=== PATIENT | male | born 1935 | race Caucasian/White ===

== ENCOUNTER 2019-03-26 08:09 | Day surgery (SDC) | payer MEDICARE ==
[~2019-03-26 08:09] MED LIST: BRIMONIDINE 0.2% OPHTH DROPS 5 ML ONE; BSS/LIDOCAINE/EPINEPHRINE 1 ML SYRINGE ONE; CYCLOPENTOLATE 1% OPHTH DROPS 2 ML ONE; KETOROLAC 0.45% OPHTH DROPS ONE; PHENYLEPHRINE 2.5% OPHTH 2 ML DROPS ONE; PROPARACAINE 0.5% OPHTH DROPS 15 ML ONE; TIMOLOL 0.5% OPHTH DROPS ONE; TRIAMCIN/MOXIFLOX OPHTHALMIC 0.6 ML VIAL IO ONE; VANCOMYCIN OPHTHALMI 8MG/0.8ML 8 MG/0.8 ML SYRINGE IO ONE
[2019-03-26] MEDS ORDERED: LACTATED RINGERS 500 ML IV ONE (08:22)
[2019-03-26] MEDS ORDERED: PHENYLEPHRINE 2.5% OPHTH 2 ML DROPS LEFTEYE ONE (08:35)
[2019-03-26] MEDS ORDERED: KETOROLAC 0.45% OPHTH DROPS LEFTEYE ONE (08:35)
[2019-03-26] MEDS ORDERED: CYCLOPENTOLATE 1% OPHTH DROPS 2 ML LEFTEYE ONE (08:35)
[2019-03-26] MEDS ORDERED: PROPARACAINE 0.5% OPHTH DROPS 15 ML LEFTEYE ONE ×2 (08:35→09:40)
--- NOTE | 2019-03-26 08:52 | ANESTHESIA ---
Pre-Anesthesia VS, & Labs - Diagnosis left senile cataract - Procedure left cataract extraction with intraocular lens implant Vital Signs: Temp Pulse Resp BP Pulse Ox 36.7 C 80 18 277/91 H 97 03/26/19 08:27 03/26/19 08:27 03/26/19 08:27 03/26/19 08:27 03/26/19 08:27 Height 5 ft 10 in Weight (kg) 89 kg Body Mass Index 30.8 - NPO >8 hours Home Medications and Allergies Aspirin 81 mg PO DAILY 02/17/15 Cholecalciferol (Vitamin D3) [Vitamin D3] 2,000 unit PO DAILY 02/17/15 Methylcellulose [Fiber Laxative] 500 mg PO DAILY 02/17/15 Multivitamin [Multivitamins] 1 each PO DAILY 02/17/15 Allergies/Adverse Reactions: Allergies Allergy/AdvReac Type Severity Reaction Status Date / Time No Known Drug Allergies Allergy Verified 01/25/15 15:12 Anes History & Medical History - Anesthetic History Anesthesia Complications: reports: No previous complications - Medical History Cardiovascular: reports: Atrial flutter, Other Pulmonary: reports: Other Gastrointestinal: reports: None Urinary: reports: None Musculoskeletal: reports: Osteoarthritis, Chronic back pain, Other Endocrine/Autoimmune: reports: None Skin: reports: Herpes zoster Smoking Status: Never smoker - Surgical History General: Colonoscopy Eyes Ears Nose Throat (EENT): Cataracts, Other Orthopedic: Knee replacement Exam General: Alert Dental: WNL Mouth Opening: Greater than 4 Fingerbreadths Mallampati classification: II Thyromental Distance: greater than 6 cm Respiratory: Lungs clear Cardiovascular: Regular rate Mental/Cognitive Status: Alert/Oriented X3 Plan Anesthesia Type: MAC Regional Block: Per Surgeon's request for Post Op pain control Consent for Procedure(s) Verified and Reviewed: Yes Code Status: Attempt Resuscitation ASA classification: 2-Mild systemic disease Is this case an emergency?: No
[2019-03-26] MEDS ORDERED: MIDAZOLAM 2 MG/2 ML VIAL IVP ONE (09:27)
[2019-03-26] MEDS ORDERED: fentaNYL 100 MCG/2 ML VIAL IVP ONE (09:27)
[2019-03-26] MEDS ORDERED: EPINEPHrine 1 MG/ML AMP IVP ONE (09:39)
[2019-03-26] MEDS ORDERED: BRIMONIDINE 0.2% OPHTH DROPS 5 ML OPTH ONE (09:39)
[2019-03-26] MEDS ORDERED: BSS/LIDOCAINE/EPINEPHRINE 1 ML SYRINGE IO ONE (09:40)
[2019-03-26] MEDS ORDERED: TIMOLOL 0.5% OPHTH DROPS OPTH ONE (09:40)
[2019-03-26] MEDS ORDERED: CHONDR SULF/HYALURONATE SYRINGE IO ONE (09:40)
[2019-03-26] MEDS ORDERED: TRIAMCIN/MOXIFLOX OPHTHALMIC 0.6 ML VIAL IO ONE (09:41)
[2019-03-26] MEDS ORDERED: VANCOMYCIN OPHTHALMI 8MG/0.8ML 8 MG/0.8 ML SYRINGE IO ONE (09:41)
[2019-03-26 10:18] VITALS: BP 145/76
--- NOTE | 2019-03-26 10:31 | OPERATIVE REPORT ---
DATE OF SERVICE: 03/26/2019 Physician: Tobi Jimenez MD PREOPERATIVE DIAGNOSIS: Visually significant cataract, left eye. Cataract surgery was performed on the right eye in 2013, elsewhere. POSTOPERATIVE DIAGNOSIS: Visually significant cataract, left eye. Cataract surgery was performed on the right eye in 2013, elsewhere. PROCEDURE: Phacoemulsification with posterior chamber intraocular lens implant, left eye. SURGEON: Tobi Jimenez MD ANESTHESIA: Monitored anesthesia care. COMPLICATIONS: None. OPERATIVE INDICATIONS: This is an 83-year-old man with progressive vision loss in the left eye due t o 2+ nuclear sclerotic and 2-3+ cortical cataract. Best corrected visual acuity was 20/40 with glare to 20/400 in the left eye. Indications for surgery are overall decrease in vision, difficulty seein g words on a computer screen, difficulty reading, difficulty seeing words, closed captions or game sc ores on TV, difficulty seeing street signs, difficulty driving at night because of headlights from ot her vehicles, and difficulty with glare or bright lights in any situation. He was consented at [facility] concerning risks and benefits of cataract surgery, after which he expressed a desire to proceed wit surgery. OPERATIVE PROCEDURE: Patient was taken to OR #3 and placed under monitored anesthesia care. A surgi cory timeout was conducted confirming the correct patient, correct procedure, and correct surgical sit e. He was given topical anesthesia and then prepped and draped in the usual sterile fashion. The ey e was entered at the 6 and 3 o'clock positions. Intracameral Shugarcaine was injected into the anter ior chamber, followed by Viscoat. A continuous-tear curvilinear capsulorrhexis was performed. The n ucleus was hydrodissected and phacoemulsified. The cortex was evacuated using automated infusion and aspiration. Provisc was injected in the capsular bag, and a 20.5 diopter intraocular lens inserted in the bag. Approximately 0.8 mL of a mixture of triamcinolone, moxifloxacin, and vancomycin was inj ected subconjunctivally in the superior quadrant for infection and inflammation prophylaxis. I and A was used to evacuate the viscoelastic materials. The eye was inflated to physiologic pressure using balanced salt solution and found to be watertight. Patient was taken from the operating room in o d condition where he was given postoperative instructions. TD: 03/26/2019 10:00
== END 2019-03-26 08:10 | disposition home or self-care (01) ==
LOC: SDS 08:09
PROVIDERS: ATTEND Ophthalmology
PROC: 08RK3JZ Replacement of Left Lens with Synthetic Substitute, Percutaneous Approach (ICD-10-PCS; principal; 2019-03-26 09:30)
DX: H25.812 Combined forms of age-related cataract, left eye (principal); Z79.82 Long term (current) use of aspirin; Z86.19 Personal history of other infectious and parasitic diseases
CPT/HCPCS: 66984; A9270; J3490; V2632

== ENCOUNTER 2020-09-15 15:45 | Outpatient (CLI) | payer MEDICARE | END 2020-09-15 15:46 | disposition home or self-care (01) | LOC: PC 15:45 | PROVIDERS: ATTEND Nurse Practitioner Adult Health | DX: Z53.9 Procedure and treatment not carried out, unspecified reason (principal) ==

== ENCOUNTER 2020-11-18 12:57 | Emergency (ER) | payer MEDICARE ==
[2020-11-18 13:46] LABS: BASOPHILS % (AUTO) 0.4 %; EOSINOPHILS # (AUTO) 0.1 10^3/uL (0.0-0.7); EOSINOPHILS % (AUTO) 0.7 %; HGB - HEMOGLOBIN 14.5 g/dL (14.0-18.0); LYMPHOCYTES # (AUTO) 1.2 10^3/uL (1.5-3.5); LYMPHOCYTES % (AUTO) 14.4 %; MEAN CORPUSCULAR HEMOGLOBIN 32.4 pg (27.0-31.0); MEAN CORPUSCULAR HGB CONC 33.1 g/dL (32.0-36.0); MEAN PLATELET VOLUME 11.3 fL (7.4-11.4); MONOCYTES # (AUTO) 0.4 10^3/uL (0.0-1.0); NEUTROPHILS # (AUTO) 6.8 10^3/uL (1.5-6.6); NEUTROPHILS % (AUTO) 79.3 %; PLT - PLATELET COUNT 176 10^3/uL (130-450); RED BLOOD COUNT 4.47 10^6/uL (4.70-6.10); RED CELL DISTRIBUTION WIDTH 12.8 % (12.0-15.0); WHITE BLOOD COUNT 8.6 x10^3/uL (4.8-10.8)
[2020-11-18 14:02] LABS: ALBUMIN 4.4 g/dL (3.2-5.5); ALBUMIN/GLOBULIN RATIO 1.6 (1.0-2.2); BILIRUBIN,TOTAL 0.5 mg/dL (0.2-1.0); CALCIUM 9.4 mg/dL (8.5-10.3); CREATININE 0.8 mg/dL (0.6-1.2); TOTAL PROTEIN 7.1 g/dL (6.7-8.2)
--- NOTE | 2020-11-18 14:08 | XRAY Report ---
PROCEDURE: Chest 1 View X-Ray INDICATIONS: Chest pain TECHNIQUE: One view of the chest was acquired. COMPARISON: Chest radiographs 01/25/2015 FINDINGS: Surgical changes and devices: None. Lungs and pleura: No pleural effusions or pneumothorax. Lungs are clear. Mediastinum: Mediastinal contours appear normal. Heart size is normal. Mild atherosclerotic calcif ications are seen in the aorta. Bones and chest wall: No suspicious bony lesions. Overlying soft tissues appear unremarkable. IMPRESSION: No acute cardiopulmonary abnormality. Reviewed by: Javed Lloyd MD on 11/18/2020 2:06 PM [facility] Approved by: Javed Lloyd MD on 11/18/2020 2:06 PM [facility] Station ID: [id number]
--- NOTE | 2020-11-18 14:18 | ED Physician Documentation ---
History of Present Illness - Stated complaint Stated Complaint: WEAKNESS/DIZZY - Chief complaint Chief Complaint: Neuro - History obtained from History obtained from: Patient, Family (spoke with daughterEmelyn, by phone) - History of Present Illness Timing: How many days ago (3) Pain level max: 0 Pain level now: 0 - Additonal information Additional information: 85 year old male states his jaw was shaking this morning. Same thing occured yesterday, but lasted longer today. States lasted for a few minutes. Nothing made it better or worse. No other symptoms. States feels normal now. No medications at home. Does not smoke or drink. Review of Systems Ten Systems: 10 systems reviewed and negative Constitutional: denies: Fever, Chills Ears: denies: Ear pain Nose: denies: Rhinorrhea / runny nose, Congestion Cardiac: denies: Palpitations Respiratory: denies: Dyspnea, Cough GI: denies: Abdominal Pain, Vomiting, Diarrhea Skin: denies: Rash Musculoskeletal: denies: Neck pain, Back pain Neurologic: denies: Headache PD PAST MEDICAL HISTORY - Past Medical History Cardiovascular: Atrial flutter, Other Respiratory: Other Endocrine/Autoimmune: None GI: None : None Musculoskeletal: Osteoarthritis, Chronic back pain, Other Derm: Herpes zoster - Past Surgical History Past Surgical History: Yes General: Colonoscopy Ortho: Knee replacement HEENT: Cataracts, Other - Present Medications Home Medications: Ambulatory Orders Medication Instructions Recorded Confirmed No Known Home Medications 11/18/20 11/18/20 - Allergies Allergies/Adverse Reactions: Allergies Allergy/AdvReac Type Severity Reaction Status Date / Time No Known Drug Allergies Allergy Verified 11/18/20 13:00 - Social History Does the pt smoke?: No Smoking Status: Never smoker Does the pt drink ETOH?: No Does the pt have substance abuse?: No - Immunizations Immunizations are current?: Yes PD ED PE NORMAL - Vitals Vital signs reviewed: Yes - General General: Alert and oriented X 3, No acute distress - HEENT HEENT: Atraumatic, PERRL, Moist mucous membranes - Neck Neck: Supple, no meningeal sign - Cardiac Cardiac: RRR - Respiratory Respiratory: No respiratory distress, Clear bilaterally - Abdomen Abdomen: Soft, Non tender, Non distended - Derm Derm: Warm and dry - Extremities Extremities: No edema, No calf tenderness / cord - Neuro Neuro: Alert and oriented X 3, jack[place] 2-12 intact, No motor deficit, No sensory deficit, Normal speech Eye Opening: Spontaneous Motor: Obeys Commands Verbal: Oriented GCS Score: 15 - Psych Psych: Normal mood, Normal affect Results - Vitals Vitals: Vital Signs - 24 hr 11/18/20 11/18/20 11/18/20 13:01 15:53 16:21 Temperature 37.1 C 37.1 C 36.7 C Heart Rate 96 73 87 Respiratory 18 16 20 Rate Blood Pressure 181/78 H 150/73 H 173/100 H O2 Saturation 98 98 98 Oxygen O2 Source Room air - EKG (time done) 1350 Rate: Rate (enter#) (77) Rhythm: NSR [place]: Normal Intervals: Normal ND QRS: Normal Ischemia: Normal ST segments - Labs Labs: Laboratory Tests 11/18/20 11/18/20 11/18/20 13:09 13:34 13:34 WBC 8.6 RBC 4.47 L Hgb 14.5 Hct 43.8 MCV 98.0 H MCH 32.4 H MCHC 33.1 RDW 12.8 Plt Count 176 MPV 11.3 Neut # (Auto) 6.8 H Lymph # (Auto) 1.2 L [place] # (Auto) 0.4 Eos # (Auto) 0.1 Baso # (Auto) 0.0 Absolute Nucleated RBC 0.00 Nucleated RBC % 0.0 Sodium 137 Potassium 4.8 Chloride 101 Carbon Dioxide 28 Anion Gap 8.0 BUN 19 Creatinine 0.8 Estimated GFR (MDRD) 92 Glucose 113 H Calcium 9.4 Total Bilirubin 0.5 AST 30 ALT 25 Alkaline Phosphatase 54 Troponin I High Sens Total Protein 7.1 Albumin 4.4 Globulin 2.7 Albumin/Globulin Ratio 1.6 Lipase 30 Urine Color YELLOW Urine Clarity CLEAR Urine pH 7.0 Ur Specific [place] 1.020 Urine Protein NEGATIVE Urine Glucose (UA) NEGATIVE Urine Ketones NEGATIVE Urine Occult Blood NEGATIVE Urine Nitrite NEGATIVE Urine Bilirubin NEGATIVE Urine Urobilinogen 0.2 (NORMAL) Ur Leukocyte Esterase NEGATIVE Ur Microscopic Review NOT INDICATED Urine Culture Comments NOT INDICATED 11/18/20 13:34 WBC RBC Hgb Hct MCV MCH MCHC RDW Plt Count MPV Neut # (Auto) Lymph # (Auto) [place] # (Auto) Eos # (Auto) Baso # (Auto) Absolute Nucleated RBC Nucleated RBC % Sodium Potassium Chloride Carbon Dioxide Anion Gap BUN Creatinine Estimated GFR (MDRD) Glucose Calcium Total Bilirubin AST ALT Alkaline Phosphatase Troponin I High Sens 11.5 Total Protein Albumin Globulin Albumin/Globulin Ratio Lipase Urine Color Urine Clarity Urine pH Ur Specific [place] Urine Protein Urine Glucose (UA) Urine Ketones Urine Occult Blood Urine Nitrite Urine Bilirubin Urine Urobilinogen Ur Leukocyte Esterase Ur Microscopic Review Urine Culture Comments - Rads (name of study) head CT Radiology: Prelim report reviewed, EMP read contemporaneously, See rad report (microvascular disease, no acute findings.) PD MEDICAL DECISION MAKING - ED course Complexity details: considered differential, d/w patient ED course: 85-year-old male presents to the emergency department for what sounds like tremulousness that lasted about 15 minutes yesterday and about 30 minutes today. Asymptomatic in the emergency department. Ambulating up and down the emergency department hallway without any difficulty or assistive devices. Patient is well-appearing, nontoxic. Afebrile. No acute findings on laboratory testing or CT scan. We will have him follow-up with your doctor in [place] for further care. Patient counseled regarding signs and symptoms for which I believe and urgent re-evaluation would be necessary. Patient with good understanding of and agreement to plan and is comfortable going home at this time This document was made in part using voice recognition software. While efforts are made to proofread this document, sound alike and grammatical errors may occur. Departure - Departure Disposition: 01 Home, Self Care Clinical Impression: Tremor Condition: Good Instructions: Essential Tremor ET Follow-Up: [place] [facility] [Provider Group] [facility] [Provider Group] [facility] [Provider Group] Comments: Your testing is normal today. Return if you worsen. Follow up with a doctor in [place] for further care. I spoke with your daughter todayEmelyn. Discharge Date/Time: 11/18/20 16:27
[2020-11-18 15:18] LABS: BILIRUBIN,URINE NEGATIVE (NEGATIVE); GLUCOSE, URINE (UA) NEGATIVE (NEGATIVE); KETONES,URINE (UA) NEGATIVE (NEGATIVE); LEUKOCYTE ESTERASE, URINE NEGATIVE (NEGATIVE); NITRITE,URINE NEGATIVE (NEGATIVE); OCCULT BLOOD,URINE NEGATIVE (NEGATIVE); PROTEIN,URINE NEGATIVE (NEGATIVE); UROBILINOGEN,URINE 0.2 (NORMAL) E.U./dL (NORMAL)
[2020-11-18 15:19] LABS: CLARITY,URINE CLEAR (CLEAR)
--- NOTE | 2020-11-18 15:41 | CT Report ---
PROCEDURE: HEAD WO INDICATIONS: weakness TECHNIQUE: Noncontrast 4.5 mm thick angled axial sections acquired from the foramen magnum to the vertex. For r adiation dose reduction, the following was used: automated exposure control, adjustment of mA and/or kV according to patient size. COMPARISON: None. FINDINGS: Image quality: Excellent. CSF spaces: Basal cisterns are patent. No extra-axial fluid collections. Ventricles are normal in size and shape. Brain: No acute intracranial hemorrhage, mass effect, or midline shift. Scattered hypodensities are s een in the subcortical and periventricular white matter, nonspecific but most commonly encountered in the setting of chronic microvascular ischemic changes. There is mild diffuse cerebral and cerebellar volume loss. Intracranial vascular calcifications are noted. Skull and face: Calvarium and visualized facial bones are intact, without suspicious lesions. Sinuses: Visualized sinuses and mastoids are clear. IMPRESSION: No acute intracranial abnormality. 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 Reviewed by: Javed Lloyd MD on 11/18/2020 3:40 PM [facility] Approved by: Javed Lloyd MD on 11/18/2020 3:40 PM PST Station ID: [id number]
--- NOTE | 2020-11-18 16:11 | ED Physician Documentation ---
History of Present Illness - Stated complaint Stated Complaint: WEAKNESS/DIZZY - Chief complaint Chief Complaint: Neuro - History obtained from History obtained from: Patient - History of Present Illness Timing: Yesterday Pain level max: 0 Pain level now: 0 - Additonal information Additional information: 85 year old male with shaking yesterday morning and this morning. Lasted about 15 minutes yesterday and about 30 minutes today. PD PAST MEDICAL HISTORY - Past Medical History Cardiovascular: Atrial flutter, Other Respiratory: Other Endocrine/Autoimmune: None GI: None : None Musculoskeletal: Osteoarthritis, Chronic back pain, Other Derm: Herpes zoster - Past Surgical History Past Surgical History: Yes General: Colonoscopy Ortho: Knee replacement HEENT: Cataracts, Other - Present Medications Home Medications: Ambulatory Orders Medication Instructions Recorded Confirmed No Known Home Medications 11/18/20 11/18/20 - Allergies Allergies/Adverse Reactions: Allergies Allergy/AdvReac Type Severity Reaction Status Date / Time No Known Drug Allergies Allergy Verified 11/18/20 13:00 - Social History Does the pt smoke?: No Smoking Status: Never smoker Does the pt drink ETOH?: No Does the pt have substance abuse?: No - Immunizations Immunizations are current?: Yes Results - Vitals Vitals: Vital Signs - 24 hr 11/18/20 11/18/20 13:01 15:53 Temperature 37.1 C 37.1 C Heart Rate 96 73 Respiratory 18 16 Rate Blood Pressure 181/78 H 150/73 H O2 Saturation 98 98 Oxygen O2 Source Room air - Labs Labs: Laboratory Tests 11/18/20 11/18/20 11/18/20 13:09 13:34 13:34 WBC 8.6 RBC 4.47 L Hgb 14.5 Hct 43.8 MCV 98.0 H MCH 32.4 H MCHC 33.1 RDW 12.8 Plt Count 176 MPV 11.3 Neut # (Auto) 6.8 H Lymph # (Auto) 1.2 L [place] # (Auto) 0.4 Eos # (Auto) 0.1 Baso # (Auto) 0.0 Absolute Nucleated RBC 0.00 Nucleated RBC % 0.0 Sodium 137 Potassium 4.8 Chloride 101 Carbon Dioxide 28 Anion Gap 8.0 BUN 19 Creatinine 0.8 Estimated GFR (MDRD) 92 Glucose 113 H Calcium 9.4 Total Bilirubin 0.5 AST 30 ALT 25 Alkaline Phosphatase 54 Troponin I High Sens Total Protein 7.1 Albumin 4.4 Globulin 2.7 Albumin/Globulin Ratio 1.6 Lipase 30 Urine Color YELLOW Urine Clarity CLEAR Urine pH 7.0 Ur Specific [place] 1.020 Urine Protein NEGATIVE Urine Glucose (UA) NEGATIVE Urine Ketones NEGATIVE Urine Occult Blood NEGATIVE Urine Nitrite NEGATIVE Urine Bilirubin NEGATIVE Urine Urobilinogen 0.2 (NORMAL) Ur Leukocyte Esterase NEGATIVE Ur Microscopic Review NOT INDICATED Urine Culture Comments NOT INDICATED 11/18/20 13:34 WBC RBC Hgb Hct MCV MCH MCHC RDW Plt Count MPV Neut # (Auto) Lymph # (Auto) [place] # (Auto) Eos # (Auto) Baso # (Auto) Absolute Nucleated RBC Nucleated RBC % Sodium Potassium Chloride Carbon Dioxide Anion Gap BUN Creatinine Estimated GFR (MDRD) Glucose Calcium Total Bilirubin AST ALT Alkaline Phosphatase Troponin I High Sens 11.5 Total Protein Albumin Globulin Albumin/Globulin Ratio Lipase Urine Color Urine Clarity Urine pH Ur Specific [place] Urine Protein Urine Glucose (UA) Urine Ketones Urine Occult Blood Urine Nitrite Urine Bilirubin Urine Urobilinogen Ur Leukocyte Esterase Ur Microscopic Review Urine Culture Comments Departure - Departure Disposition: Home, Self Care Clinical Impression: Tremor Condition: Good Instructions: Essential Tremor ET Follow-Up: [facility] [Provider Group] [facility] [Provider Group] [facility] [Provider Group] Comments: Your testing is normal today. Return if you worsen. Follow up with a doctor in [place] for further care. I spoke with your daughter today, Emelyn.
[2020-11-18 16:22] VITALS: BP 173/100
== END 2020-11-18 16:27 | disposition home or self-care (01) ==
LOC: ED 12:57
DX: R25.1 Tremor, unspecified (principal)
CPT/HCPCS: 36415; 80053; 81001; 81003; 83690; 84484; 85025; 87086; 93005; 99284

== ENCOUNTER 2023-11-24 08:28 | Outpatient (CLI) | payer MEDICARE | END 2023-11-24 23:59 | disposition critical access hospital (66) | LOC: EMS 08:28 | DX: R41.0 Disorientation, unspecified (principal); T68.XXXA Hypothermia, initial encounter; X31.XXXA Exposure to excessive natural cold, initial encounter; S01.81XA Laceration without foreign body of other part of head, initial encounter; S01.91XA Laceration without foreign body of unspecified part of head, initial encounter; S41.112A Laceration without foreign body of left upper arm, initial encounter; W19.XXXA Unspecified fall, initial encounter; Y93.01 Activity, walking, marching and hiking; Y92.414 Local residential or business street as the place of occurrence of the external cause | CPT/HCPCS: A0425; A0427 ==

== ENCOUNTER 2023-11-24 08:50 | Emergency (ER) | payer MEDICARE ==
[2023-11-24] MEDS ORDERED: SODIUM CHLORIDE 0.9% 1,000 ML IV STA (09:10)
--- NOTE | 2023-11-24 09:14 | ED Physician Documentation ---
History of Present Illness - Stated complaint Stated Complaint: AMS - History obtained from History obtained from: Patient, EMS - Additonal information Additional information: The patient is brought to the emergency department by EMS for chief complaint of "found wandering and confused". The patient does not remember leaving his house and does not even remember that he was walking outside. He states that he normally lives alone and this was corroborated by the police who also arrived on scene. Medics report that the police went to the patient's house and Found it to be clean and in order. The patient states he has not been ill with anything recently and has been feeling "fine". He takes an aspirin occasionally in the evening, he states, for aches and pains, but states he does not have any other medical problems or medications. He denies any chest pain or shortness of breath. No cough. He has chronic low back pain which is at baseline. He denies any nausea or vomiting. No abdominal pain. He states that he used to be 300 pounds and believes he is now around 200 after doing the [employer] diet. The patient has no family nearby. He states that he has siblings who live out of state and no children in the area. He does have a female friend who checks in on him from time to time. He does note that his memory has not been very good For some time, though he does not know exactly how long. No other complaints at this time. The patient does not know why he has scratches all over his arms and legs, but thinks it is from trimming trees in his yard yesterday. He denies falling and does not feel as though he is injured his head. No neck pain. PD PAST MEDICAL HISTORY - Past Medical History Cardiovascular: Atrial flutter, Other Respiratory: Other Endocrine/Autoimmune: None GI: None : None Musculoskeletal: Osteoarthritis, Chronic back pain, Other Derm: Herpes zoster - Past Surgical History Past Surgical History: Yes General: Colonoscopy Ortho: Knee replacement HEENT: Cataracts, Other - Present Medications Home Medications: Ambulatory Orders Medication Instructions Recorded Confirmed QUEtiapine [SEROquel] 25 mg PO QPM #30 tablet 11/27/23 - Allergies Allergies/Adverse Reactions: Allergies Allergy/AdvReac Type Severity Reaction Status Date / Time No Known Drug Allergies Allergy Verified 11/24/23 09:23 - Social History Does the pt smoke?: No Smoking Status: Never smoker Does the pt drink ETOH?: No Does the pt have substance abuse?: No - Immunizations Immunizations are current?: Yes PD ED PE NORMAL - Vitals Vital signs reviewed: Yes - General General: No acute distress, Well developed/nourished, Other (Alert answers questions appropriately.) - HEENT HEENT: PERRL, EOMI, Moist mucous membranes, Other (Dried blood on face but no evidence of head or facial trauma.) - Neck Neck: Supple, no meningeal sign, No bony TTP - Cardiac Cardiac: RRR, No murmur, Strong equal pulses - Respiratory Respiratory: No respiratory distress, Clear bilaterally - Abdomen Abdomen: Soft, Non tender, Non distended - Back Back: No spinal TTP - Derm Derm: Normal color, Other (Cool, dry. 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 Relevant findings are: Rate: Rate (enter#) (91) Rhythm: NSR [place]: Normal Intervals: Normal [place] QRS: Normal Ischemia: Non specific changes Compare to prior EKG: Old EKG unavailable Computer interpretation: Agree with computer - Labs Labs: Laboratory Tests 11/24/23 11/24/23 11/24/23 09:27 09:27 09:27 WBC 16.2 H RBC 4.32 L Hgb 13.8 L Hct 42.6 MCV 98.6 H MCH 31.9 H MCHC 32.4 RDW 14.5 Plt Count 185 MPV 10.4 Neut # (Auto) 14.7 H Lymph # (Auto) 0.5 L Baxter # (Auto) 0.9 Eos # (Auto) 0.0 Baso # (Auto) 0.0 Absolute Nucleated RBC 0.00 Nucleated RBC % 0.0 Sodium 144 Potassium 4.2 Chloride 112 H Carbon Dioxide 20 L Anion Gap 12.0 BUN 34 H Creatinine 1.1 Estimated GFR (MDRD) 63 L Glucose 68 L Calcium 8.9 Total Bilirubin 0.5 AST 35 ALT 14 Alkaline Phosphatase 47 Ammonia 39.0 Total Protein 6.6 Albumin 4.2 Globulin 2.4 Albumin/Globulin Ratio 1.8 Lipase < 10 L Urine Color Urine Clarity Urine pH Ur Specific Media Urine Protein Urine Glucose (UA) Urine Ketones Urine Occult Blood Urine Nitrite Urine Bilirubin Urine Urobilinogen Ur Leukocyte Esterase Urine RBC Urine WBC Ur Squamous Epith Cells Urine Bacteria Urine Casts Ur Microscopic Review Urine Culture Comments Nasal Adenovirus (PCR) Nasal B. parapertussis DNA (PCR) Nasal Coronavir 229E PCR Nasal Coronavir HKU1 PCR Nasal Coronavir NL63 PCR Nasal Coronavir OC43 PCR Nasal Enterovir/Rhinovir PCR Nasal Influenza B PCR Nasal Influenza A PCR Nasal Parainfluen 1 PCR Nasal Parainfluen 2 PCR Nasal Parainfluen 3 PCR Nasal Parainfluen 4 PCR Nasal RSV (PCR) Nasal B.pertussis DNA PCR Nasal C.pneumoniae (PCR) Clay Human Metapneumo PCR Nasal M.pneumoniae (PCR) Nasal SARS-CoV-2 (PCR) Urine Opiates Screen Ur Buprenorphine Scrn Ur Oxycodone Screen Urine Methadone Screen Ur Barbiturates Screen Ur Tricyclics Screen Ur Phencyclidine Scrn Ur Amphetamine Screen U Methamphetamines Scrn U Benzodiazepines Scrn Urine Cocaine Screen U Cannabinoids Screen Ur Drug Screen Comment Ethyl Alcohol 11/24/23 11/24/23 11/24/23 09:27 09:28 09:45 WBC RBC Hgb Hct MCV MCH MCHC RDW Plt Count MPV Neut # (Auto) Lymph # (Auto) Baxter # (Auto) Eos # (Auto) Baso # (Auto) Absolute Nucleated RBC Nucleated RBC % Sodium Potassium Chloride Carbon Dioxide Anion Gap BUN Creatinine Estimated GFR (MDRD) Glucose Calcium Total Bilirubin AST ALT Alkaline Phosphatase Ammonia Total Protein Albumin Globulin Albumin/Globulin Ratio Lipase Urine Color DARK YELLOW Urine Clarity CLEAR Urine pH 5.5 Ur Specific Media >=1.030 H Urine Protein 30 H Urine Glucose (UA) NEGATIVE Urine Ketones 15 H Urine Occult Blood SMALL H Urine Nitrite NEGATIVE Urine Bilirubin NEGATIVE Urine Urobilinogen 0.2 (NORMAL) Ur Leukocyte Esterase NEGATIVE Urine RBC 0-5 Urine WBC 0-3 Ur Squamous Epith Cells FEW Squamous Urine Bacteria Few Urine Casts 3-5 Hyaline Casts Ur Microscopic Review INDICATED Urine Culture Comments NOT INDICATED Nasal Adenovirus (PCR) NOT DETECTED Nasal B. parapertussis DNA (PCR) NOT DETECTED Nasal Coronavir 229E PCR NOT DETECTED Nasal Coronavir HKU1 PCR NOT DETECTED Nasal Coronavir NL63 PCR NOT DETECTED Nasal Coronavir OC43 PCR NOT DETECTED Nasal Enterovir/Rhinovir PCR NOT DETECTED Nasal Influenza B PCR NOT DETECTED Nasal Influenza A PCR NOT DETECTED Nasal Parainfluen 1 PCR NOT DETECTED Nasal Parainfluen 2 PCR NOT DETECTED Nasal Parainfluen 3 PCR NOT DETECTED Nasal Parainfluen 4 PCR NOT DETECTED Nasal RSV (PCR) NOT DETECTED Nasal B.pertussis DNA PCR NOT DETECTED Nasal C.pneumoniae (PCR) NOT DETECTED Clay Human Metapneumo PCR NOT DETECTED Nasal M.pneumoniae (PCR) NOT DETECTED Nasal SARS-CoV-2 (PCR) NOT DETECTED Urine Opiates Screen Ur Buprenorphine Scrn Ur Oxycodone Screen Urine Methadone Screen Ur Barbiturates Screen Ur Tricyclics Screen Ur Phencyclidine Scrn Ur Amphetamine Screen U Methamphetamines Scrn U Benzodiazepines Scrn Urine Cocaine Screen U Cannabinoids Screen Ur Drug Screen Comment Ethyl Alcohol < 10.0 11/24/23 09:45 WBC RBC Hgb Hct MCV MCH MCHC RDW Plt Count MPV Neut # (Auto) Lymph # (Auto) Baxter # (Auto) Eos # (Auto) Baso # (Auto) Absolute Nucleated RBC Nucleated RBC % Sodium Potassium Chloride Carbon Dioxide Anion Gap BUN Creatinine Estimated GFR (MDRD) Glucose Calcium Total Bilirubin AST ALT Alkaline Phosphatase Ammonia Total Protein Albumin Globulin Albumin/Globulin Ratio Lipase Urine Color Urine Clarity Urine pH Ur Specific Media Urine Protein Urine Glucose (UA) Urine Ketones Urine Occult Blood Urine Nitrite Urine Bilirubin Urine Urobilinogen Ur Leukocyte Esterase Urine RBC Urine WBC Ur Squamous Epith Cells Urine Bacteria Urine Casts Ur Microscopic Review Urine Culture Comments Nasal Adenovirus (PCR) Nasal B. parapertussis DNA (PCR) Nasal Coronavir 229E PCR Nasal Coronavir HKU1 PCR Nasal Coronavir NL63 PCR Nasal Coronavir OC43 PCR Nasal Enterovir/Rhinovir PCR Nasal Influenza B PCR Nasal Influenza A PCR Nasal Parainfluen 1 PCR Nasal Parainfluen 2 PCR Nasal Parainfluen 3 PCR Nasal Parainfluen 4 PCR Nasal RSV (PCR) Nasal B.pertussis DNA PCR Nasal C.pneumoniae (PCR) Clay Human Metapneumo PCR Nasal M.pneumoniae (PCR) Nasal SARS-CoV-2 (PCR) Urine Opiates Screen NEGATIVE Ur Buprenorphine Scrn NEGATIVE Ur Oxycodone Screen NEGATIVE Urine Methadone Screen NEGATIVE Ur Barbiturates Screen NEGATIVE Ur Tricyclics Screen NEGATIVE Ur Phencyclidine Scrn NEGATIVE Ur Amphetamine Screen NEGATIVE U Methamphetamines Scrn NEGATIVE U Benzodiazepines Scrn NEGATIVE Urine Cocaine Screen NEGATIVE U Cannabinoids Screen NEGATIVE Ur Drug Screen Comment CUTOFF CONC BELOW: Ethyl Alcohol - Rads (name of study) head CT Relevant Findings:: Final report received, See rad report (neg) CXR Relevant Findings:: Final report received, See rad report (neg) PD Medical Decision Making - ED course Complexity details: reviewed old records, reviewed results, re-evaluated patient, considered differential, d/w patient ED course: The patient was alert and actually appeared fairly well, but did not remember leaving his house this morning. He did appear to have been wandering through sticker bushes or dense [place], given the superficial skin trauma on his arms and legs. I did not find evidence of head injury and was not sure how the dried blood got in his face, though I suspect it must have been from reaching up with his arms or hands. The patient had no complaints and did not appear to be significantly injured. Given his confusion and wandering, I did work him up medically to evaluate for contributing factors. He was evaluated with labs, EKG, urinalysis, respiratory PCR panel, and head CT. He was treated with a liter of IV fluids. The pt's work-up was unremarkable. I had consulted SW, but then pt's daughter called, stating she had just arrived on a plane from [place], and was here to take care of her dad and arrange for a better living situation for him. She stated that the memory issues and wandering had been going on for some time, and were now getting worse. She stated she would be arriving at the ED in a couple of hours, and would take him home. The pt remained stable in the ED, but was somewhat confused and restless. While I was in another room, the daughter arrived. She stated that when her dad gets like this, he will escalate unless in his familiar environment. She stated they needed to leave immed iately, without waiting for d/c instructions. Nursing staff came to inform me, but daughter had already escorted the pt out. I felt the pt was stable for d/c, and the daughter had stated plans to attend to the pt's immediate and long-term needs, but did end up leaving without discharge instructions. Departure - Departure Disposition: Left Prior to Disposition Clinical Impression: Confusion Dementia Qualifiers: Dementia type: unspecified type Dementia severity: unspecified severity Dementia behavioral or psychological symptom: with agitation Qualified Code(s): F03.911 - Unspecified dementia, unspecified severity, with agitation Condition: Stable Forms: PCP List Discharge Date/Time: 11/24/23 17:30
[2023-11-24 09:31] VITALS: O2SAT 98
[2023-11-24 09:34] LABS: BASOPHILS % (AUTO) 0.2 %; HCT - HEMATOCRIT 42.6 % (42.0-52.0); HGB - HEMOGLOBIN 13.8 g/dL (14.0-18.0); LYMPHOCYTES # (AUTO) 0.5 10^3/uL (1.5-3.5); LYMPHOCYTES % (AUTO) 3.2 %; MEAN CORPUSCULAR HEMOGLOBIN 31.9 pg (27.0-31.0); MEAN CORPUSCULAR HGB CONC 32.4 g/dL (32.0-36.0); MEAN CORPUSCULAR VOLUME 98.6 fL (80.0-94.0); MEAN PLATELET VOLUME 10.4 fL (7.4-11.4); MONOCYTES # (AUTO) 0.9 10^3/uL (0.0-1.0); MONOCYTES % (AUTO) 5.3 %; NEUTROPHILS # (AUTO) 14.7 10^3/uL (1.5-6.6); PLT - PLATELET COUNT 185 10^3/uL (130-450); RED BLOOD COUNT 4.32 10^6/uL (4.70-6.10); RED CELL DISTRIBUTION WIDTH 14.5 % (12.0-15.0); WHITE BLOOD COUNT 16.2 x10^3/uL (4.8-10.8)
[2023-11-24 09:47] LABS: ALBUMIN 4.2 g/dL (3.2-5.5); ALBUMIN/GLOBULIN RATIO 1.8 (1.0-2.2); ALKALINE PHOSPHATASE 47 IU/L (42-121); ALT ALANINE AMINOTRANSFERASE 14 IU/L (10-60); AST ASPARTATE AMINOTRANSFERASE 35 IU/L (10-42); BILIRUBIN,TOTAL 0.5 mg/dL (0.2-1.0); BUN - BLOOD UREA NITROGEN 34 mg/dL (6-20); CALCIUM 8.9 mg/dL (8.5-10.3); CARBON DIOXIDE - CO2 20 mmol/L (21-32); CHLORIDE 112 mmol/L (101-111); CREATININE 1.1 mg/dL (0.6-1.3); GFR - MDRD 63 (>89); GLUCOSE 68 mg/dL (74-104); POTASSIUM 4.2 mmol/L (3.5-4.5); SODIUM 144 mmol/L (135-145); TOTAL PROTEIN 6.6 g/dL (6.4-8.9)
[2023-11-24 09:49] LABS: LIPASE < 10 U/L (11-82)
--- NOTE | 2023-11-24 09:52 | CT Report ---
PROCEDURE: Head WO INDICATIONS: aloc TECHNIQUE: Noncontrast 4.5 mm thick angled axial sections acquired from the foramen magnum to the vertex. For r adiation dose reduction, the following was used: automated exposure control, adjustment of mA and/or kV according to patient size. COMPARISON: 11/18/2020 FINDINGS: Image quality: Excellent. CSF spaces: Basal cisterns are patent. Bilateral subdural fluid can be seen, left worse than right, which is mildly worse than in 202. Ventricles are stable, with the left side larger than the right, likely related to ex vacuo dilatation. Brain: No midline shift. No intracranial masses or hemorrhage. Oates-white matter interface is norm al. Skull and face: Calvarium and visualized facial bones are intact, without suspicious lesions. Sinuses: Visualized sinuses and mastoids are clear. IMPRESSION: No bob, acute abnormality is seen. There is chronic bilateral subdural fluid seen, left worse than right, which is mildly worse than in 2020. Stable asymmetry of the lateral ventricles, with the left-sided larger than the right, most likely re lated to asymmetric volume loss. Reviewed by: Robert Coyle MD on 11/24/2023 8:51 AM [facility] Approved by: Robert Coyle MD on 11/24/2023 8:51 AM [facility] Station ID: [id number]
[2023-11-24 10:07] LABS: BILIRUBIN,URINE NEGATIVE (NEGATIVE); CLARITY,URINE CLEAR (CLEAR); GLUCOSE, URINE (UA) NEGATIVE (NEGATIVE); KETONES,URINE (UA) 15 mg/dL (NEGATIVE); LEUKOCYTE ESTERASE, URINE NEGATIVE (NEGATIVE); NITRITE,URINE NEGATIVE (NEGATIVE); OCCULT BLOOD,URINE SMALL (NEGATIVE); PH,URINE 5.5 PH (5.0-7.5); PROTEIN,URINE 30 mg/dL (NEGATIVE); UROBILINOGEN,URINE 0.2 (NORMAL) E.U./dL (NORMAL)
[2023-11-24 10:13] LABS: BACTERIA,URINE Few /HPF (None Seen); CASTS, URINE 3-5 Hyaline Casts /LPF; RBC,URINE 0-5 /HPF (0-5); SQUAMOUS EPITHELIAL CELL,UR FEW Squamous (<= Few); WBC,URINE 0-3 /HPF (0-3)
--- NOTE | 2023-11-24 10:16 | XRAY Report ---
PROCEDURE: Chest 1V INDICATIONS: cough TECHNIQUE: One view of the chest was acquired. COMPARISON: 11/18/2020 FINDINGS: Surgical changes and devices: None. Lungs and pleura: An incomplete inspiratory result is noted, with low lung volumes and crowding of t he vascular markings. No focal infiltrates are seen. No large pneumothorax or large pleural effusion can be seen. Mediastinum: The aorta is prominent and tortuous. The cardiac contours are within normal limits. Bones and chest wall: No suspicious bony lesions. Age-appropriate degenerative changes are seen. Overlying soft tissues appear unremarkable. IMPRESSION: Limited portable chest examination, without an acute abnormality identified. No focal infiltrates are seen. Reviewed by: Robert Coyle MD on 11/24/2023 9:15 AM [facility] Approved by: Robert Coyle MD on 11/24/2023 9:15 AM [facility] Station ID: [id number]
[2023-11-24 10:25] LABS: B. PARAPERTUSSIS- RESP PCR PAN NOT DETECTED; B. PERTUSSIS- RESP PCR PANEL NOT DETECTED; C. PNEUMONIAE- RESP PCR PANEL NOT DETECTED; CORONAVIRUS 229E-RESP PCR NOT DETECTED; CORONAVIRUS HKU1-RESP PCR NOT DETECTED; CORONAVIRUS NL63-RESP PCR NOT DETECTED; CORONAVIRUS OC43-RESP PCR NOT DETECTED; HUMAN METAPNEUMOVIRUS NOT DETECTED; INFLUENZA A- RESP PCR PANEL NOT DETECTED; INFLUENZA B - RESP PCR PANEL NOT DETECTED; M. PNEUMONIAE- RESP PCR PANEL NOT DETECTED; PARAINFLUENZA VIRUS 1 NOT DETECTED; PARAINFLUENZA VIRUS 2 NOT DETECTED; PARAINFLUENZA VIRUS 3 NOT DETECTED; PARAINFLUENZA VIRUS 4 NOT DETECTED; RHINOVIRUS/ENTEROVIRUS NOT DETECTED; RSV- RESP PCR PANEL NOT DETECTED; SARS-CoV-2 -RESP PCR PANEL NOT DETECTED
[2023-11-24 11:21] LABS: AMPHETAMINE SCREEN,URINE NEGATIVE (NEGATIVE); BARBITURATE SCREEN,UR NEGATIVE (NEGATIVE); BENZODIAZEPINES SCREEN, URINE NEGATIVE (NEGATIVE); BUPRENORPHINE SCREEN, URINE NEGATIVE (NEGATIVE); COCAINE SCREEN URINE NEGATIVE (NEGATIVE); METHADONE SCREEN, URINE NEGATIVE (NEGATIVE); METHAMPHETAMINES SCREEN, URINE NEGATIVE (NEGATIVE); OPIATE SCREEN, URINE NEGATIVE (NEGATIVE); OXYCODONE SCREEN, URINE NEGATIVE (NEGATIVE); THC CANNABINOID SCREEN, URINE NEGATIVE (NEGATIVE); TRICYCLIC ANTIDEPRESSANT,URINE NEGATIVE (NEGATIVE)
[2023-11-24] MEDS ORDERED: OLANZapine ODT 5 MG TABLET TL ONE (12:08)
[2023-11-24 15:22] VITALS: BP 140/73
[2023-11-24] MEDS ORDERED: LORazepam 1 MG TABLET PO STA (15:23)
== END 2023-11-24 17:30 | disposition home or self-care (01) ==
LOC: EDUNIT# → ED 08:50
DX: R41.0 Disorientation, unspecified (principal); F03.90 Unspecified dementia, unspecified severity, without behavioral disturbance, psychotic disturbance, mood disturbance, and anxiety; Z79.899 Other long term (current) drug therapy
CPT/HCPCS: 36415; 70450; 71045; 80053; 80306; 81001; 82140; 83690; 85025; 87633; 93005; 96360; 99283; 99284; A9270; G0480; J8499; 80320; 81003; 87086

== ENCOUNTER 2023-11-27 18:15 | Emergency (ER) | payer MEDICARE ==
[2023-11-27 19:57] VITALS: O2SAT 100
--- NOTE | 2023-11-27 20:01 | ED Physician Documentation ---
History of Present Illness - Stated complaint Stated Complaint: ABNORMAL LABS - Chief complaint Chief Complaint: General - History obtained from History obtained from: Patient, Family - History of Present Illness Timing: Today Pain level max: 0 Pain level now: 0 - Additonal information Additional information: Patient is an 88-year-old male with dementia who is sent into the emergency department by his primary care provider who reportedly decided to do a D-dimer on this gentleman and it was high. Is unclear why the D-dimer was performed. His daughter states that he has severe dementia and was wandering for several hours the other day. She states that he has scrapes and abrasions of the bilateral knees, legs, arms, hands and feet. He has been complaining of foot pain. His legs are both mildly swollen but no more than usual. No chest pain. No shortness of breath. He states the pain is worse with walking. She states that he does become agitated at night quite often with his dementia. Review of Systems Constitutional: denies: Fever, Chills GI: denies: Vomiting, Diarrhea Skin: denies: Rash Musculoskeletal: denies: Neck pain, Back pain Neurologic: denies: Headache PD PAST MEDICAL HISTORY - Past Medical History Cardiovascular: Atrial flutter, Other Respiratory: Other Endocrine/Autoimmune: None GI: None : None Musculoskeletal: Osteoarthritis, Chronic back pain, Other Derm: Herpes zoster - Past Surgical History Past Surgical History: Yes General: Colonoscopy Ortho: Knee replacement HEENT: Cataracts, Other - Present Medications Home Medications: Ambulatory Orders Medication Instructions Recorded Confirmed QUEtiapine [SEROquel] 25 mg PO QPM #30 tablet 11/27/23 - Allergies Allergies/Adverse Reactions: Allergies Allergy/AdvReac Type Severity Reaction Status Date / Time No Known Drug Allergies Allergy Verified 11/24/23 09:23 - Social History Does the pt smoke?: No Smoking Status: Never smoker Does the pt drink ETOH?: No Does the pt have substance abuse?: No - Immunizations Immunizations are current?: Yes - POLST Patient has POLST: No PD ED PE NORMAL - Vitals Vital signs reviewed: Yes - General General: Alert and oriented X 3, No acute distress - HEENT HEENT: PERRL, Moist mucous membranes - Neck Neck: Supple, no meningeal sign - Cardiac Cardiac: RRR, Strong equal pulses - Respiratory Respiratory: No respiratory distress, Clear bilaterally - Abdomen Abdomen: Soft, Non tender, Non distended - Back Back: No spinal TTP - Derm Derm: Warm and dry - Extremities Extremities: No calf tenderness / cord, Other (1+ bilateral lower extremity edema. No calf tenderness or cord. There are abrasions to the bilateral knees, anterior shins and feet. 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, No sensory deficit, Other (Alert, oriented to person and place, not to time) - Psych Psych: Normal mood, Normal affect Results - Vitals Vitals: Vital Signs - 24 hr 11/27/23 11/27/23 11/27/23 18:17 19:45 22:02 Temperature 36.6 C Heart Rate 73 69 68 Respiratory 18 16 16 Rate Blood Pressure 138/59 H 144/65 H 145/68 H O2 Saturation 99 100 100 Oxygen O2 Source Room air - Rads (name of study) Bilateral foot x-ray Relevant Findings:: Final report received, See rad report Bilateral tib-fib x-ray Relevant Findings:: Final report received, See rad report Duplex ultrasound bilateral lower extremity Relevant Findings:: Final report received, See rad report PD Medical Decision Making - ED course Complexity details: reviewed results, re-evaluated patient, considered differential, d/w patient ED course: There are no acute findings on ultrasound or x-rays. D-dimer is likely elevated due to the bruising and abrasions. He was given a dose of Seroquel here and that did seem to help his owning. We will trial him on Seroquel for home. Will have him follow-up with his PCP for any further care. No emergency medical condition at this time. Patient and family counseled regarding signs and symptoms for which I believe and urgent re-evaluation would be necessary. Patient with good understanding of and agreement to plan and is comfortable going home at this time This document was made in part using voice recognition software. While efforts are made to proofread this document, sound alike and grammatical errors may occur. Departure - Departure Disposition: Home, Self Care Clinical Impression: Peripheral edema Dementia Qualifiers: Dementia type: unspecified type Dementia severity: unspecified severity Dementia behavioral or psychological symptom: with agitation Qualified Code(s): F03.911 - Unspecified dementia, unspecified severity, with agitation Condition: Good Instructions: ED Dementia Caregiver Support Follow-Up: your,doctor in 1 week [Other] Prescriptions: QUEtiapine [SEROquel] 25 mg PO QPM #30 tablet Comments: Your prescription was sent to [facility] in [place]. Your x-rays do not show any acute fractures. Your ultrasound of your bilateral lower extremities did not show any blood clots. 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 Please follow-up with his doctor for further care. Will also trial him on Seroquel at night, we will start at 25 mg at night, if he is still having agitation this may need to be increased to 50 mg in 1 week. Forms: PCP List Discharge Date/Time: 11/27/23 22:14
[2023-11-27] MEDS: QUEtiapine 25 MG TABLET PO STA (20:20)
[2023-11-27] MEDS: oxyCODONE 5 MG TABLET PO STA (20:20)
--- NOTE | 2023-11-27 20:54 | XRAY Report ---
PROCEDURE: Foot 3+V BL INDICATIONS: B foot pain TECHNIQUE: 3 views of the feet were acquired. COMPARISON: None. FINDINGS: Bones: No fractures or dislocations. No suspicious bony lesions. Symmetric bilateral subluxation of the second through fifth MTP joints. First MTP joint space narrowing and osteophytosis. Soft tissues: No suspicious soft tissue calcifications or masses. Generalized soft tissue swelling and microvascular disease. IMPRESSION: Forefoot osteoarthritis, without acute bony abnormality. Reviewed by: Keegan Mayorga MD on 11/27/2023 8:52 PM [facility] Approved by: Keegan Mayorga MD on 11/27/2023 8:52 PM [facility] Station ID: [id number]
--- NOTE | 2023-11-27 20:57 | XRAY Report ---
PROCEDURE: Tib/Fib BL INDICATIONS: B leg pain TECHNIQUE: 2 views of the tibia and fibula were acquired. COMPARISON: None. FINDINGS: Bones: No fractures or dislocations. No suspicious bony lesions. Right medial compartment arthrop lasty of the knee. Healed right distal fibula fracture deformity. Soft tissues: No suspicious soft tissue calcifications or masses. Bilateral calf edema. IMPRESSION: No acute bony abnormality. Bilateral calf edema. Reviewed by: Keegan Mayorga MD on 11/27/2023 8:56 PM PST Approved by: Keegan Mayorga MD on 11/27/2023 8:56 PM PST Station ID: [id number]
[2023-11-27 22:11] VITALS: BP 145/68
--- NOTE | 2023-11-27 22:39 | Ultrasound Report ---
PROCEDURE: Duplex Ext Veins Bilateral INDICATIONS: B Dominic TECHNIQUE: Real-time imaging, as well as color and pulse Doppler interrogation, were performed of the deep veins of both legs from the inguinal ligament to the popliteal fossa. Attempted visualization of the calf veins was performed. COMPARISON: None FINDINGS: Suboptimal evaluation due to patient cooperation. The deep veins are normally compressible, and free of intraluminal thrombus. Color and pulse Doppler demonstrate normal phasic intravascular flow. There is normal augmentation response to distal compression maneuver. Right-sided Webber's cys t measuring 2.5 x 2.4 x 3.2 cm. Left-sided Webber's cyst measuring 3.8 x 1.6 x 4.4 cm. IMPRESSION: No deep venous thrombosis of the visualized lower extremities. Reviewed by: Keegan Mayorga MD on 11/27/2023 10:37 PM [facility] Approved by: Keegan Mayorga MD on 11/27/2023 10:37 PM [facility] Station ID: [id number]
== END 2023-11-27 22:14 | disposition home or self-care (01) ==
LOC: ED 18:15
DX: R60.0 Localized edema (principal); F03.C11 Unspecified dementia, severe, with agitation; S80.212A Abrasion, left knee, initial encounter; S80.211A Abrasion, right knee, initial encounter; S80.812A Abrasion, left lower leg, initial encounter; S80.811A Abrasion, right lower leg, initial encounter; S90.812A Abrasion, left foot, initial encounter; S90.811A Abrasion, right foot, initial encounter; X58.XXXA Exposure to other specified factors, initial encounter; I48.92 Unspecified atrial flutter; Z79.899 Other long term (current) drug therapy
CPT/HCPCS: 93970; 99284

== ENCOUNTER 2023-12-27 16:47 | Outpatient (CLI) | payer MEDICARE | END 2023-12-27 23:59 | disposition critical access hospital (66) | LOC: EMS 16:47 | DX: S09.90XA Unspecified injury of head, initial encounter (principal); S01.01XA Laceration without foreign body of scalp, initial encounter; W01.198A Fall on same level from slipping, tripping and stumbling with subsequent striking against other object, initial encounter; Y93.E8 Activity, other personal hygiene; Y92.531 Health care provider office as the place of occurrence of the external cause | CPT/HCPCS: A0425; A0429 ==

== ENCOUNTER 2023-12-27 17:13 | Emergency (ER) | payer MEDICARE ==
--- NOTE | 2023-12-27 17:21 | ED Physician Documentation ---
History of Present Illness - Stated complaint Stated Complaint: GLF/HEAD LAC - History obtained from History obtained from: Patient, EMS - History of Present Illness Timing: Today Pain level max: 0 Pain level now: 0 - Additonal information Additional information: Patient is an 88-year-old male with a history of dementia that presents to the emergency department after a ground-level fall at the primary care clinic in [place] today. Brought in by EMS for a laceration to the top of his head. He has no other complaints. He was placed in a c-collar by EMS as the fall was unwitnessed when he went to the bathroom by himself. He lives at [facility] place, [facility]. His only home medication is quetiapine. EMS cleansed and bandaged the laceration to the top of the head. Patient is not on any blood thinners. Patient was able to stand and walk after the event. Was moving all extremities on scene with EMS. Review of Systems Constitutional: denies: Fever, Chills Respiratory: denies: Cough GI: denies: Nausea, Vomiting, Diarrhea Skin: denies: Rash Musculoskeletal: denies: Neck pain, Back pain Neurologic: denies: Headache PD PAST MEDICAL HISTORY - Past Medical History Cardiovascular: Atrial flutter, Other Respiratory: Other Endocrine/Autoimmune: None GI: None : None Musculoskeletal: Osteoarthritis, Chronic back pain, Other Derm: Herpes zoster - Past Surgical History Past Surgical History: Yes General: Colonoscopy Ortho: Knee replacement HEENT: Cataracts, Other - Present Medications Home Medications: Ambulatory Orders Medication Instructions Recorded Confirmed QUEtiapine [SEROquel] 25 mg PO QPM #30 tablet 11/27/23 12/27/23 - Allergies Allergies/Adverse Reactions: Allergies Allergy/AdvReac Type Severity Reaction Status Date / Time No Known Drug Allergies Allergy Verified 11/24/23 09:23 - Social History Does the pt smoke?: No Smoking Status: Never smoker Does the pt drink ETOH?: No Does the pt have substance abuse?: No - Immunizations Immunizations are current?: Yes - POLST Patient has POLST: No PD ED PE NORMAL - Vitals Vital signs reviewed: Yes - General General: No acute distress, Well developed/nourished, Other (Alert, pleasantly confused.) - HEENT HEENT: PERRL, Moist mucous membranes, Other (5 cm stellate laceration to the top of the head) - Neck Neck: Supple, no meningeal sign, No bony TTP - Cardiac Cardiac: RRR, Strong equal pulses - Respiratory Respiratory: No respiratory distress, Clear bilaterally - Abdomen Abdomen: Soft, Non tender, Non distended - Back Back: No spinal TTP - Derm Derm: Warm and dry - Extremities Extremities: Other (MAEE) - 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, No motor deficit, No sensory deficit, Other (Oriented to person only) Eye Opening: Spontaneous Motor: Obeys Commands Verbal: Confused GCS Score: 14 Results - Vitals Vitals: Vital Signs - 24 hr 12/27/23 12/27/23 17:16 18:58 Temperature 36.3 C L Heart Rate 81 78 Respiratory 16 16 Rate Blood Pressure 161/84 H 161/74 H O2 Saturation 98 97 Oxygen O2 Source Room air - Rads (name of study) Head CT Relevant Findings:: Final report received, See rad report Cervical spine CT Relevant Findings:: Final report received, See rad report Procedures - Laceration (location) scalp Length in cm: 5 Wound type: Stellate, Clean Neurovascular status: Sensory intact, Motor intact, Vascular intact Wound preparation: Irrigated copiously NS Skin layer closure: Hennessey (6) Other: Patient tolerated well, No complications, Neurovascular intact, Dressing applied, Tetanus UTD PD Medical Decision Making - ED course Complexity details: reviewed results, re-evaluated patient, considered differential, d/w patient ED course: 88-year-old male status post a ground-level fall. Has significant dementia, therefore head CT and cervical spine CT were performed. These do not show any acute abnormalities. Laceration repaired with carmina. No indication for laboratory testing. Patient is at his normal mental baseline. Tetanus up-to-date. Patient will follow-up with his PCP for staple removal. Patient will be discharged back to his memory care facility. This document was made in part using voice recognition software. While efforts are made to proofread this document, sound alike and grammatical errors may occur. Departure - Departure Disposition: 01 Home, Self Care Clinical Impression: Ground-level fall Dementia Qualifiers: Dementia type: unspecified type Dementia severity: unspecified severity Dementia behavioral or psychological symptom: without behavioral, psychotic, or mood disturbance or anxiety Qualified Code(s): F03.90 - Unspecified dementia, unspecified severity, without behavioral disturbance, psychotic disturbance, mood disturbance, and anxiety Scalp laceration Qualifiers: Encounter type: initial encounter Qualified Code(s): S01.01XA - Laceration without foreign body of scalp, initial encounter Condition: Good Instructions: ED Laceration Scalp Stitch Or Stap Follow-Up: your,doctor in 14 days for staple removal [Other] Comments: Your head Ct and cervical spine CT are negative for acute injury today. Your laceration was repaired with carmina. These should be removed with your doctor in 10-14 days. Please return if you worsen. Forms: PCP List Discharge Date/Time: 12/27/23 19:44
--- NOTE | 2023-12-27 18:43 | CT Report ---
PROCEDURE: Head WO INDICATIONS: fall, head injury TECHNIQUE: Noncontrast 4.5 mm thick angled axial sections acquired from the foramen magnum to the vertex. For r adiation dose reduction, the following was used: automated exposure control, adjustment of mA and/or kV according to patient size. COMPARISON: 11/24/2023 FINDINGS: Image quality: Diagnostic CSF spaces: Basal cisterns are patent. Slightly enlarged left lateral ventricle compared to the right as before Volume: Vascular calcifications. Periventricular white matter disease is commonly seen with chronic m icroangiopathy. Volume loss is present. These findings are moderate to severe. This is similar to germán or. Brain: No intracranial hemorrhage. Oates-white differentiation is grossly maintained. Craniofacial structures: Left scalp contusion. Partially empty sella. IMPRESSION: No acute intracranial abnormality. Reviewed by: Diego Dudley MD on 12/27/2023 6:41 PM PST Approved by: Diego Dudley MD on 12/27/2023 6:41 PM PST Station ID: [id number]
--- NOTE | 2023-12-27 18:45 | CT Report ---
PROCEDURE: Cervical Spine WO INDICATIONS: fall, neck pain TECHNIQUE: Noncontrast 3 mm thick sections acquired from the skull base to the T4 level. Sagittal and coronal r eformats were then constructed. For radiation dose reduction, the following was used: automated exp osure control, adjustment of mA and/or kV according to patient size. COMPARISON: None. FINDINGS: Image quality: Diagnostic Bones: Moderate degenerative changes, with multilevel spondylolisthesis and straightening of normal c ervical lordosis. There is also disc space height loss, osteophytes, and arthropathy of the facets an d uncovertebral joints. Vertebral body heights are well-maintained otherwise. No definite traumatic s ubluxation. Soft tissues: There are atherosclerotic calcifications. No pathologic prevertebral soft tissue swelli ng. IMPRESSION: Degenerative changes. No acute fracture or traumatic subluxation. If there is high concern for furthe r derangement, consider MRI evaluation. Reviewed by: Diego Dudley MD on 12/27/2023 6:44 PM PST Approved by: Diego Dudley MD on 12/27/2023 6:44 PM PST Station ID: [id number]
[2023-12-27 19:02] VITALS: BP 161/74; O2SAT 97
== END 2023-12-27 19:44 | disposition home or self-care (01) ==
LOC: EDUNIT# → ED 17:13
DX: S01.01XA Laceration without foreign body of scalp, initial encounter (principal); F03.90 Unspecified dementia, unspecified severity, without behavioral disturbance, psychotic disturbance, mood disturbance, and anxiety; W18.30XA Fall on same level, unspecified, initial encounter; Y92.531 Health care provider office as the place of occurrence of the external cause
CPT/HCPCS: 12002; 99283; 99284

== ENCOUNTER 2023-12-27 19:35 | Outpatient (CLI) | payer MEDICARE | END 2023-12-27 23:59 | disposition home or self-care (01) | LOC: EMS 19:35 | PROVIDERS: ATTEND Emergency Medicine | DX: F03.90 Unspecified dementia, unspecified severity, without behavioral disturbance, psychotic disturbance, mood disturbance, and anxiety (principal); R41.0 Disorientation, unspecified; S01.01XD Laceration without foreign body of scalp, subsequent encounter; W19.XXXD Unspecified fall, subsequent encounter | CPT/HCPCS: A0425; A0428 ==

== ENCOUNTER 2024-01-03 17:42 | Outpatient (CLI) | payer MEDICARE | END 2024-01-03 23:59 | disposition critical access hospital (66) | LOC: EMS 17:42 | DX: R05.9 Cough, unspecified (principal) | CPT/HCPCS: A0425; A0429 ==

== ENCOUNTER 2024-01-03 18:21 | Inpatient (IN) | payer MEDICARE ==
--- NOTE | 2024-01-03 18:42 | ED Physician Documentation ---
History of Present Illness - Stated complaint Stated Complaint: COUGH/C+ - Chief complaint Chief Complaint: Resp - History obtained from History obtained from: Patient - Additonal information Additional information: 88-year-old gentleman presents from memory care facility. He is demented so it is not clear how long he has been sick, but reportedly has a productive cough and was tested positive for COVID today and was noted to have room air sats in the 80s. History is limited from the patient due to dementia. PD PAST MEDICAL HISTORY - Past Medical History Past Medical History: Yes Cardiovascular: Atrial flutter, Other Respiratory: Other Neuro: Dementia Endocrine/Autoimmune: None GI: None : None Musculoskeletal: Osteoarthritis, Chronic back pain, Other Derm: Herpes zoster - Past Surgical History Past Surgical History: Yes General: Colonoscopy Ortho: Knee replacement HEENT: Cataracts, Other - Present Medications Home Medications: Ambulatory Orders Medication Instructions Recorded Confirmed QUEtiapine [SEROquel] 25 mg PO QPM #30 tablet 11/27/23 01/03/24 Acetaminophen [Tylenol] 650 mg PO Q6H PRN 01/03/24 01/03/24 Nirmatrelvir/Ritonavir [Paxlovid 2 each PO BID 01/03/24 01/03/24 150-100 mg Dose Pack] guaiFENesin [Mucus ER] 600 mg PO PRN PRN 01/03/24 01/03/24 - Allergies Allergies/Adverse Reactions: Allergies Allergy/AdvReac Type Severity Reaction Status Date / Time No Known Drug Allergies Allergy Verified 01/03/24 18:35 - Social History Does the pt smoke?: No Smoking Status: Never smoker Does the pt drink ETOH?: No Does the pt have substance abuse?: No - Immunizations Immunizations are current?: Yes - POLST Patient has POLST: No PD ED PE NORMAL - Vitals Vital signs reviewed: Yes (Hypoxic) - General General: No acute distress, Other (He is alert and oriented to person but not place time or events. He has a frequent bronchitic cough.) - Cardiac Cardiac: RRR, No murmur - Respiratory Respiratory: Other (Rhonchorous throughout without focal findings, nonlabored) - Abdomen Abdomen: Normal bowel sounds, Soft, Non tender - Neuro Eye Opening: Spontaneous Motor: Obeys Commands Verbal: Confused GCS Score: 14 Results - Vitals Vitals: Vital Signs - 24 hr 01/03/24 01/03/24 01/03/24 18:31 19:04 19:30 Temperature 37.1 C Heart Rate 111 H 109 H 107 H Respiratory 22 28 H 20 Rate Blood Pressure 158/101 H 123/63 121/79 O2 Saturation 82 L 94 94 If not protocol 4 4 : Oxygen Flow, liters/minute 01/03/24 01/03/24 19:53 20:00 Temperature Heart Rate 109 H 104 H Respiratory 28 H 20 Rate Blood Pressure O2 Saturation 74 L If not protocol 4 15 : Oxygen Flow, liters/minute Oxygen O2 Source Non-rebreather mask Oxygen Flow Rate 4 - Labs Labs: Laboratory Tests 01/03/24 01/03/24 01/03/24 18:40 18:40 18:40 WBC 14.9 H RBC 4.15 L Hgb 12.7 L Hct 38.8 L MCV 93.5 MCH 30.6 MCHC 32.7 RDW 12.3 Plt Count 241 MPV 10.3 Neut # (Auto) 12.5 H Lymph # (Auto) 1.4 L Sumter # (Auto) 0.9 Eos # (Auto) 0.0 Baso # (Auto) 0.0 Absolute Nucleated RBC 0.00 Nucleated RBC % 0.0 VBG pH 7.424 H VBG pCO2 42.6 VBG pO2 36.9 VBG HCO3 27.3 VBG Total CO2 28.6 VBG O2 Saturation 71.7 VBG Base Excess 2.5 H Sodium 134 L Potassium 4.1 Chloride 99 L Carbon Dioxide 28 Anion Gap 7.0 BUN 27 H Creatinine 0.9 Estimated GFR (MDRD) 80 L Glucose 133 H Calcium 8.6 Magnesium 1.9 Total Bilirubin 0.4 AST 59 H ALT 22 Alkaline Phosphatase 49 Total Protein 6.1 L Albumin 3.3 Globulin 2.8 Albumin/Globulin Ratio 1.2 Nasal Adenovirus (PCR) Nasal B. parapertussis DNA (PCR) Nasal Coronavir 229E PCR Nasal Coronavir HKU1 PCR Nasal Coronavir NL63 PCR Nasal Coronavir OC43 PCR Nasal Enterovir/Rhinovir PCR Nasal Influenza B PCR Nasal Influenza A PCR Nasal Parainfluen 1 PCR Nasal Parainfluen 2 PCR Nasal Parainfluen 3 PCR Nasal Parainfluen 4 PCR Nasal RSV (PCR) Nasal B.pertussis DNA PCR Nasal C.pneumoniae (PCR) Clay Human Metapneumo PCR Nasal M.pneumoniae (PCR) Nasal SARS-CoV-2 (PCR) 01/03/24 18:53 WBC RBC Hgb Hct MCV MCH MCHC RDW Plt Count MPV Neut # (Auto) Lymph # (Auto) Sumter # (Auto) Eos # (Auto) Baso # (Auto) Absolute Nucleated RBC Nucleated RBC % VBG pH VBG pCO2 VBG pO2 VBG HCO3 VBG Total CO2 VBG O2 Saturation VBG Base Excess Sodium Potassium Chloride Carbon Dioxide Anion Gap BUN Creatinine Estimated GFR (MDRD) Glucose Calcium Magnesium Total Bilirubin AST ALT Alkaline Phosphatase Total Protein Albumin Globulin Albumin/Globulin Ratio Nasal Adenovirus (PCR) NOT DETECTED Nasal B. parapertussis DNA (PCR) NOT DETECTED Nasal Coronavir 229E PCR NOT DETECTED Nasal Coronavir HKU1 PCR NOT DETECTED Nasal Coronavir NL63 PCR NOT DETECTED Nasal Coronavir OC43 PCR NOT DETECTED Nasal Enterovir/Rhinovir PCR NOT DETECTED Nasal Influenza B PCR NOT DETECTED Nasal Influenza A PCR NOT DETECTED Nasal Parainfluen 1 PCR NOT DETECTED Nasal Parainfluen 2 PCR NOT DETECTED Nasal Parainfluen 3 PCR NOT DETECTED Nasal Parainfluen 4 PCR NOT DETECTED Nasal RSV (PCR) NOT DETECTED Nasal B.pertussis DNA PCR NOT DETECTED Nasal C.pneumoniae (PCR) NOT DETECTED Clay Human Metapneumo PCR NOT DETECTED Nasal M.pneumoniae (PCR) NOT DETECTED Nasal SARS-CoV-2 (PCR) DETECTED A - Rads (name of study) 1V CXR Relevant Findings:: Final report received, EMP independent interpretation of test PD Medical Decision Making - ED course ED course: 88-year-old gentleman with recent diagnosis of COVID presents from dementia unit with hypoxemia. He is fairly hypoxic and has a significant oxygen requirement. I did try to call his daughter in [place], there was no answer and I left a voicemail inviting her to call back if she would like an update. Single view chest x-ray showing mild to moderate right greater than left lung opacities Subsequently because of this blood cultures were ordered as well as antibiotics, specifically Rocephin and azithromycin. RN reports to me that he has an increasing oxygen requirement and is now on a nonrebreather. Telehealth consultation placed for admission at approximately 7:50 PM. I spoke with the person on duty at the [facility] facility and she confirmed that his chart says he is full code. Spoke with Dr. Urban for admission at 8:12 PM. - Critical Care Time(min): 40 Time Includes: Direct patient care, Review records, Reassess patient, Document care, Coordinate care, Medical consult Data interpretation: Labs, Pulse ox Procedures included in critical care time: Peripheral IV Departure - Departure Disposition: 66 [facility] DC/Xfer Clinical Impression: COVID-19 Respiratory failure Qualifiers: Chronicity: acute Respiratory failure complication: hypoxia Qualified Code(s): J96.01 - Acute respiratory failure with hypoxia Pneumonia Qualifiers: Pneumonia type: due to unspecified organism Laterality: bilateral Lung location: unspecified part of lung Qualified Code(s): J18.9 - Pneumonia, unspecified organism Condition: Stable Forms: PCP List
[2024-01-03 18:49] LABS: BASOPHILS % (AUTO) 0.2 %; HCT - HEMATOCRIT 38.8 % (42.0-52.0); HGB - HEMOGLOBIN 12.7 g/dL (14.0-18.0); LYMPHOCYTES # (AUTO) 1.4 10^3/uL (1.5-3.5); LYMPHOCYTES % (AUTO) 9.5 %; MEAN CORPUSCULAR HEMOGLOBIN 30.6 pg (27.0-31.0); MEAN CORPUSCULAR HGB CONC 32.7 g/dL (32.0-36.0); MEAN CORPUSCULAR VOLUME 93.5 fL (80.0-94.0); MEAN PLATELET VOLUME 10.3 fL (7.4-11.4); MONOCYTES # (AUTO) 0.9 10^3/uL (0.0-1.0); NEUTROPHILS # (AUTO) 12.5 10^3/uL (1.5-6.6); NEUTROPHILS % (AUTO) 83.8 %; PLT - PLATELET COUNT 241 10^3/uL (130-450); RED BLOOD COUNT 4.15 10^6/uL (4.70-6.10); RED CELL DISTRIBUTION WIDTH 12.3 % (12.0-15.0); WHITE BLOOD COUNT 14.9 x10^3/uL (4.8-10.8)
[2024-01-03 18:53] LABS: VBG PH 7.424 (7.31-7.41)
[2024-01-03 18:54] LABS: VBG BASE EXCESS 2.5 mmol/L (-2 - +2); VBG HCO3 27.3 mmol/L (23-28); VBG OXYGEN SATURATION 71.7 % (60-80); VBG PCO2 42.6 mmHg (41-51); VBG PO2 36.9 mmHg (25-47); VBG TOTAL CO2 28.6 mmol/L (24-29)
[2024-01-03 19:03] LABS: ALBUMIN 3.3 g/dL (3.2-5.5); ALBUMIN/GLOBULIN RATIO 1.2 (1.0-2.2); BILIRUBIN,TOTAL 0.4 mg/dL (0.2-1.0); CALCIUM 8.6 mg/dL (8.5-10.3); CREATININE 0.9 mg/dL (0.6-1.3); MAGNESIUM 1.9 mg/dL (1.7-2.3); POTASSIUM 4.1 mmol/L (3.5-4.5); TOTAL PROTEIN 6.1 g/dL (6.4-8.9)
--- NOTE | 2024-01-03 19:25 | XRAY Report ---
PROCEDURE: Chest 1V INDICATIONS: dyspnea TECHNIQUE: One view of the chest was acquired. COMPARISON: 11/24/2023 FINDINGS: Surgical changes and devices: None. Lungs and pleura: Mild to moderate right perihilar and infrahilar opacities, also involving the left lung to a lesser extent. No pleural effusions. Mediastinum: Heart and mediastinal contours are unchanged. There are aortic calcifications. Bones and chest wall: Degenerative changes. IMPRESSION: Mild to moderate right greater than left lung opacities, particularly in the perihilar region, probab ly infectious/inflammatory. Consider future imaging surveillance to assess for resolution. Reviewed by: Diego Dudley MD on 01/03/2024 7:24 PM PST Approved by: Diego Dudley MD on 01/03/2024 7:24 PM PST Station ID: [id number]
[2024-01-03 19:58] LABS: B. PARAPERTUSSIS- RESP PCR PAN NOT DETECTED; B. PERTUSSIS- RESP PCR PANEL NOT DETECTED; C. PNEUMONIAE- RESP PCR PANEL NOT DETECTED; CORONAVIRUS 229E-RESP PCR NOT DETECTED; CORONAVIRUS HKU1-RESP PCR NOT DETECTED; CORONAVIRUS NL63-RESP PCR NOT DETECTED; CORONAVIRUS OC43-RESP PCR NOT DETECTED; HUMAN METAPNEUMOVIRUS NOT DETECTED; INFLUENZA A- RESP PCR PANEL NOT DETECTED; INFLUENZA B - RESP PCR PANEL NOT DETECTED; M. PNEUMONIAE- RESP PCR PANEL NOT DETECTED; PARAINFLUENZA VIRUS 1 NOT DETECTED; PARAINFLUENZA VIRUS 2 NOT DETECTED; PARAINFLUENZA VIRUS 3 NOT DETECTED; PARAINFLUENZA VIRUS 4 NOT DETECTED; RHINOVIRUS/ENTEROVIRUS NOT DETECTED; RSV- RESP PCR PANEL NOT DETECTED
[2024-01-03] MEDS: IPRATROPIUM/ALBUTEROL 3 ML NEB INH STA (19:58)
[2024-01-03 20:00] LABS: SARS-CoV-2 -RESP PCR PANEL DETECTED
[2024-01-03] MEDS ORDERED: SODIUM CHLORIDE FLUSH 0.9% 10 ML SYRINGE IVP PRN (20:12)
[2024-01-03] MEDS ORDERED: ONDANSETRON 4 MG/2 ML VIAL IVP PRN (20:12)
[2024-01-03] MEDS ORDERED: IPRATROPIUM/ALBUTEROL 3 ML NEB INH PRN (20:21)
[2024-01-03] MEDS: cefTRIAXone 1 GM VIAL IVP STA (20:28)
--- NOTE | 2024-01-03 20:28 | HISTORY & PHYSICAL EXAMINATION ---
Chief Complaint - Chief Complaint Chief Complaint: Cough History of Present Illness - History of Present Illness HPI Comment/Other: 88-year-old gentleman presents from memory care facility. He is demented so it is not clear how long he has been sick, but reportedly has a productive cough and was tested positive for COVID today and was noted to have room air sats in the 80s. History is limited from the patient due to dementia. On presentation, pt was tachycardic, tachypnic and hypoxic Oxygen sat dropped to 74 % in ER, was put on NRB Labs showed WBC 14 CXR showed B/L lung opacities COVID positive In ER, pt was given IV decadron, Rocephin and zithromax Pt is admitted due to Acute hypoxic respiratory failure due to COVID PNA History - Past Medical History Cardiovascular: reports: Atrial flutter, Other Respiratory: reports: Other Neuro: reports: Dementia Endocrine/Autoimmune: reports: None GI: reports: None : reports: None Musculoskeletal: reports: Osteoarthritis, Chronic back pain, Other Derm: reports: Herpes zoster MRSA Hx?: No - Past Surgical History General: reports: Colonoscopy Ortho: reports: Knee replacement HEENT: reports: Cataracts, Other - POLST Patient has POLST: No Meds/Allgy - Home Medications Home Medications: Ambulatory Orders Medication Instructions Recorded Confirmed QUEtiapine [SEROquel] 25 mg PO QPM #30 tablet 11/27/23 01/03/24 Acetaminophen [Tylenol] 650 mg PO Q6H PRN 01/03/24 01/03/24 Nirmatrelvir/Ritonavir [Paxlovid 2 each PO BID 01/03/24 01/03/24 150-100 mg Dose Pack] guaiFENesin [Mucus ER] 600 mg PO PRN PRN 01/03/24 01/03/24 - Allergies Allergies/Adverse Reactions: Allergies Allergy/AdvReac Type Severity Reaction Status Date / Time No Known Drug Allergies Allergy Verified 01/03/24 18:35 Review of Systems - Other Findings Other Findings: Unable to obtain due to dementia Exam - Vital Signs Vital Signs: Vital Signs x48h Temp Pulse Resp BP Pulse Ox O2 Flow Rate 01/03/24 20:00 104 H 28 H 15 01/03/24 19:53 109 H 28 H 74 L 4 01/03/24 19:30 107 H 20 121/79 94 4 01/03/24 19:04 109 H 28 H 123/63 94 4 01/03/24 18:31 37.1 C 111 H 22 158/101 H 82 L - Physical Exam General Appearance: positive: Mild distress Eyes Bilateral: positive: Normal inspection ENT: positive: ENT inspection nml Respiratory: positive: Rales, Rhonchi Cardiovascular: positive: Tachycardia Abdomen: positive: Non-tender, Nml bowel sounds Skin: positive: No rash Extremities: positive: No pedal edema Neurologic/Psychiatric: positive: Disoriented to place, Disoriented to time Conclusion/Plan - Lab Results Fish Bones: 01/03/24 18:40 01/03/24 18:40 - Other Other Results/Comments: A: Acute hypoxic respiratory failure COVID pneumonia Dementia Leukocytosis Plan Admit in ICU for [id number] monitoring Check CPK, CRP, LDH, D dimer, Trop, lactic acid NPO Start decadron 6 mg iv daily start Rocephin and zithromax Duo nebs q4h prn Contact/Droplet isolation Repeat CBC, CMP, in am DVT prophylaxic: Lovenox sq, SCD Full code Pt is admitted as inpatient as more than 2 midnight stay is expected
[2024-01-03] MEDS: AZITHROMYCIN INJ 500 MG in SODIUM CHLORIDE 0.9% 250 ML IV STA (20:29)
[2024-01-03] MEDS: DEXAMETHASONE 10 MG/ML VIAL IVP STA (20:29)
[2024-01-03 20:36] LABS: CRP - C-REACTIVE PROTEIN 24.7 mg/dL (<0.5)
[2024-01-03] MEDS: FUROSEMIDE 20 MG/2 ML VIAL IVP STA (20:46)
[2024-01-03] MEDS: ZINC OXIDE 20% OINT 30 GM TUBE TOP PRN (22:33)
[2024-01-03] MEDS: LORazepam 2 MG/ML VIAL IVP STA (23:15)
[2024-01-04] MEDS: ACETAMINOPHEN 325 MG TABLET PO PRN (00:19)
[2024-01-04] MEDS: QUEtiapine 25 MG TABLET PO ONE (01:50)
[2024-01-04] MEDS: SODIUM CHLORIDE FLUSH 0.9% 10 ML SYRINGE IVP SCH (02:27)
--- NOTE | 2024-01-04 08:26 | PROVIDER PROGRESS NOTE ---
Subjective - Prog Note Date Prog Note Date: 01/04/24 - Subjective Pt reports feeling: Improved (slightely improved than last night, with less Oxygen needs, still needs 50% 30L) Subjective: 88-year-old demented M came from memory care facility, with productive cough, was tested positive for COVID, SaO2 in 80s. In the ED, pt was tachycardic, tachypnic and hypoxic, Oxygen sat dropped to 74 % on room air, Lab WBC 14, CXR showed B/L lung opacities, In ER, pt was given IV decadron, Rocephin and zithromax. Patient is still on high flow, still has a lot of cough and sputum production. Current Medications - Current Medications Current Medications: Active Medications Acetaminophen (Acetaminophen 325 Mg Tablet) 650 mg PO Q6HR PRN PRN Reason: Pain or Fever > 38C (100.4F) Last Admin: 01/04/24 00:19 Dose: 650 mg Albuterol/Ipratropium (Ipratropium/Albuterol 3 Ml Neb) 3 ml INH RTQ4H PRN PRN Reason: Wheezing Calcium Carbonate/Glycine (Calcium Carbonate Chew 500 Mg Tablet) 1,250 mg PO Q4H [facility]; Protocol Stop: 01/04/24 14:01 Last Admin: 01/04/24 09:54 Dose: 1,250 mg Dexamethasone Sodium Phosphate (Dexamethasone 10 Mg/Ml Vial) 6 mg IVP DAILY [facility] Last Admin: 01/04/24 08:56 Dose: 6 mg Enoxaparin Sodium (Enoxaparin 40 Mg/0.4 Ml Syringe) 40 mg SUBQ DAILY [facility] Last Admin: 01/04/24 08:56 Dose: 40 mg Guaifenesin (Guaifenesin/Dextromethorphan 10 Ml Udc) 10 ml PO BID [facility] Last Admin: 01/04/24 08:56 Dose: 10 ml Haloperidol (Haloperidol 5 Mg/Ml Vial) 0.5 mg IVP Q6H PRN PRN Reason: Agitation Ceftriaxone Sodium 1 gm/ (Sodium Chloride) 100 mls @ 200 mls/hr IV Q24H MANDA Stop: 01/07/24 20:29 Azithromycin 500 mg/ Sodium (Chloride) 250 mls @ 250 mls/hr IV Q24H [facility] Stop: 01/05/24 21:59 Multi-Ingredient Ointment (Zinc Oxide 20% Oint 30 Gm Tube) 1 applic TOP PRN PRN PRN Reason: Skin Care Last Admin: 01/03/24 22:33 Dose: 1 applic Ondansetron HCl (Ondansetron 4 Mg/2 Ml Vial) 4 mg IVP Q6HR PRN PRN Reason: Nausea / Vomiting Quetiapine Fumarate (Quetiapine 25 Mg Tablet) 25 mg PO QPM MANDA Sodium Chloride (Sodium Chloride Flush 0.9% 10 Ml Syringe) 10 ml IVP PRN PRN PRN Reason: NEEDED PER PROVIDER ORDERS Sodium Chloride (Sodium Chloride Flush 0.9% 10 Ml Syringe) 10 ml IVP 0100,0900,1700 MANDA Last Admin: 01/04/24 08:56 Dose: 10 ml Throat Lozenges (Benzocaine/Menthol Lozenge) 1 lozenge MM Q2HR PRN PRN Reason: Mouth Sore Pain Acetaminophen [Tylenol] 650 mg PO Q6H PRN 01/03/24 Nirmatrelvir/Ritonavir [Paxlovid 150-100 mg Dose Pack] 2 each PO BID 01/03/24 guaiFENesin [Mucus ER] 600 mg PO BID PRN 01/03/24 Mag Hydrox/Aluminum Hyd/Simeth [Alum-Mag Hydroxide-Simeth Cup] 30 ml PO Q4H PRN 01/04/24 Magnesium Hydroxide [Milk of Magnesia] 30 ml PO DAILY PRN 01/04/24 Objective - Vital Signs/Intake & Output Vital Signs: Vital Signs Temp Pulse Resp BP Pulse Ox O2 Flow Rate 01/04/24 07:00 66 19 93/47 L 100 35 01/04/24 06:00 69 18 113/57 L 100 35 01/04/24 05:00 37.2 C 73 21 102/53 L 100 35 Intake & Output: Intake & Output 01/01/24 01/02/24 01/03/24 01/04/24 23:59 23:59 23:59 23:59 Intake Total 250 50 Output Total 200 Balance 50 50 - Objective General Appearance: positive: Alert, Moderate distress, Other (on high flow NC) Eyes Bilateral: positive: PERRL, EOMI ENT: positive: ENT inspection nml Neck: positive: Nml inspection Respiratory: positive: Rales, Rhonchi (diffuse, left more than right) Cardiovascular: positive: Regular rate & rhythm Abdomen: positive: Non-tender. negative: Guarding, Rebound Skin: positive: Warm, Dry. negative: Cyanosis Extremities: positive: No pedal edema Neurologic/Psychiatric: positive: CN's nml (2-12) - Lab Results Fish Bones: 01/04/24 08:40 01/04/24 08:40 Other Labs: Lab Results x24hrs 01/03/24 01/03/24 01/03/24 Range/Units 22:30 20:45 20:45 WBC (4.8-10.8) x10^3/uL RBC (4.70-6.10) 10^6/uL Hgb (14.0-18.0) g/dL Hct (42.0-52.0) % MCV (80.0-94.0) fL MCH (27.0-31.0) pg MCHC (32.0-36.0) g/dL RDW (12.0-15.0) % Plt Count (130-450) 10^3/uL MPV (7.4-11.4) fL Neut # (Auto) (1.5-6.6) 10^3/uL Lymph # (Auto) (1.5-3.5) 10^3/uL [place] # (Auto) (0.0-1.0) 10^3/uL Eos # (Auto) (0.0-0.7) 10^3/uL Baso # (Auto) (0.0-0.1) 10^3/uL Absolute Nucleated RBC x10^3/uL Nucleated RBC % /100WBC D-Dimer (200.0-255.0) ng/mL VBG pH (7.31-7.41) VBG pCO2 (41-51) mmHg VBG pO2 (25-47) mmHg VBG HCO3 (23-28) mmol/L VBG Total CO2 (24-29) mmol/L VBG O2 Saturation (60-80) % VBG Base Excess (-2 - +2) mmol/L Sodium (135-145) mmol/L Potassium (3.5-4.5) mmol/L Chloride (101-111) mmol/L Carbon Dioxide (21-32) mmol/L Anion Gap (6-13) BUN (6-20) mg/dL Creatinine (0.6-1.3) mg/dL Estimated GFR (MDRD) (>89) Glucose (74-104) mg/dL Lactic Acid 1.8 (0.5-2.2) mmol/L Calcium (8.5-10.3) mg/dL Magnesium (1.7-2.3) mg/dL Total Bilirubin (0.2-1.0) mg/dL AST (10-42) IU/L ALT (10-60) IU/L Alkaline Phosphatase (42-121) IU/L Total Creatine Kinase (30-223) IU/L Troponin I High Sens 72.9 H* (2.3-19.7) ng/L C-Reactive Protein (<0.5) mg/dL Total Protein (6.4-8.9) g/dL Albumin (3.2-5.5) g/dL Globulin (2.1-4.2) g/dL Albumin/Globulin Ratio (1.0-2.2) LDL Cholesterol Direct (75-193) mg/dL Nasal Adenovirus (PCR) Nasal B. parapertussis DNA (PCR) Nasal Coronavir 229E PCR Nasal Coronavir HKU1 PCR Nasal Coronavir NL63 PCR Nasal Coronavir OC43 PCR Nasal Enterovir/Rhinovir PCR Nasal Influenza B PCR Nasal Influenza A PCR Nasal Parainfluen 1 PCR Nasal Parainfluen 2 PCR Nasal Parainfluen 3 PCR Nasal Parainfluen 4 PCR Nasal RSV (PCR) Nasal Screen MRSA (PCR) NEGATIVE (NEGATIVE) Nasal B.pertussis DNA PCR Nasal C.pneumoniae (PCR) Clay Human Metapneumo PCR Nasal M.pneumoniae (PCR) Nasal SARS-CoV-2 (PCR) 01/03/24 01/03/24 01/03/24 Range/Units 20:05 18:53 18:53 WBC (4.8-10.8) x10^3/uL RBC (4.70-6.10) 10^6/uL Hgb (14.0-18.0) g/dL Hct (42.0-52.0) % MCV (80.0-94.0) fL MCH (27.0-31.0) pg MCHC (32.0-36.0) g/dL RDW (12.0-15.0) % Plt Count (130-450) 10^3/uL MPV (7.4-11.4) fL Neut # (Auto) (1.5-6.6) 10^3/uL Lymph # (Auto) (1.5-3.5) 10^3/uL [place] # (Auto) (0.0-1.0) 10^3/uL Eos # (Auto) (0.0-0.7) 10^3/uL Baso # (Auto) (0.0-0.1) 10^3/uL Absolute Nucleated RBC x10^3/uL Nucleated RBC % /100WBC D-Dimer > 1050.0 H (200.0-255.0) ng/mL VBG pH (7.31-7.41) VBG pCO2 (41-51) mmHg VBG pO2 (25-47) mmHg VBG HCO3 (23-28) mmol/L VBG Total CO2 (24-29) mmol/L VBG O2 Saturation (60-80) % VBG Base Excess (-2 - +2) mmol/L Sodium (135-145) mmol/L Potassium (3.5-4.5) mmol/L Chloride (101-111) mmol/L Carbon Dioxide (21-32) mmol/L Anion Gap (6-13) BUN (6-20) mg/dL Creatinine (0.6-1.3) mg/dL Estimated GFR (MDRD) (>89) Glucose (74-104) mg/dL Lactic Acid 1.8 (0.5-2.2) mmol/L Calcium (8.5-10.3) mg/dL Magnesium (1.7-2.3) mg/dL Total Bilirubin (0.2-1.0) mg/dL AST (10-42) IU/L ALT (10-60) IU/L Alkaline Phosphatase (42-121) IU/L Total Creatine Kinase 1500 H* (30-223) IU/L Troponin I High Sens (2.3-19.7) ng/L C-Reactive Protein 24.7 H (<0.5) mg/dL Total Protein (6.4-8.9) g/dL Albumin (3.2-5.5) g/dL Globulin (2.1-4.2) g/dL Albumin/Globulin Ratio (1.0-2.2) LDL Cholesterol Direct 62 L (75-193) mg/dL Nasal Adenovirus (PCR) Nasal B. parapertussis DNA (PCR) Nasal Coronavir 229E PCR Nasal Coronavir HKU1 PCR Nasal Coronavir NL63 PCR Nasal Coronavir OC43 PCR Nasal Enterovir/Rhinovir PCR Nasal Influenza B PCR Nasal Influenza A PCR Nasal Parainfluen 1 PCR Nasal Parainfluen 2 PCR Nasal Parainfluen 3 PCR Nasal Parainfluen 4 PCR Nasal RSV (PCR) Nasal Screen MRSA (PCR) (NEGATIVE) Nasal B.pertussis DNA PCR Nasal C.pneumoniae (PCR) Clay Human Metapneumo PCR Nasal M.pneumoniae (PCR) Nasal SARS-CoV-2 (PCR) 01/03/24 01/03/24 01/03/24 Range/Units 18:53 18:40 18:40 WBC (4.8-10.8) x10^3/uL RBC (4.70-6.10) 10^6/uL Hgb (14.0-18.0) g/dL Hct (42.0-52.0) % MCV (80.0-94.0) fL MCH (27.0-31.0) pg MCHC (32.0-36.0) g/dL RDW (12.0-15.0) % Plt Count (130-450) 10^3/uL MPV (7.4-11.4) fL Neut # (Auto) (1.5-6.6) 10^3/uL Lymph # (Auto) (1.5-3.5) 10^3/uL [place] # (Auto) (0.0-1.0) 10^3/uL Eos # (Auto) (0.0-0.7) 10^3/uL Baso # (Auto) (0.0-0.1) 10^3/uL Absolute Nucleated RBC x10^3/uL Nucleated RBC % /100WBC D-Dimer (200.0-255.0) ng/mL VBG pH 7.424 H (7.31-7.41) VBG pCO2 42.6 (41-51) mmHg VBG pO2 36.9 (25-47) mmHg VBG HCO3 27.3 (23-28) mmol/L VBG Total CO2 28.6 (24-29) mmol/L VBG O2 Saturation 71.7 (60-80) % VBG Base Excess 2.5 H (-2 - +2) mmol/L Sodium 134 L (135-145) mmol/L Potassium 4.1 (3.5-4.5) mmol/L Chloride 99 L (101-111) mmol/L Carbon Dioxide 28 (21-32) mmol/L Anion Gap 7.0 (6-13) BUN 27 H (6-20) mg/dL Creatinine 0.9 (0.6-1.3) mg/dL Estimated GFR (MDRD) 80 L (>89) Glucose 133 H (74-104) mg/dL Lactic Acid (0.5-2.2) mmol/L Calcium 8.6 (8.5-10.3) mg/dL Magnesium 1.9 (1.7-2.3) mg/dL Total Bilirubin 0.4 (0.2-1.0) mg/dL AST 59 H (10-42) IU/L ALT 22 (10-60) IU/L Alkaline Phosphatase 49 (42-121) IU/L Total Creatine Kinase (30-223) IU/L Troponin I High Sens (2.3-19.7) ng/L C-Reactive Protein (<0.5) mg/dL Total Protein 6.1 L (6.4-8.9) g/dL Albumin 3.3 (3.2-5.5) g/dL Globulin 2.8 (2.1-4.2) g/dL Albumin/Globulin Ratio 1.2 (1.0-2.2) LDL Cholesterol Direct (75-193) mg/dL Nasal Adenovirus (PCR) NOT DETECTED Nasal B. parapertussis DNA (PCR) NOT DETECTED Nasal Coronavir 229E PCR NOT DETECTED Nasal Coronavir HKU1 PCR NOT DETECTED Nasal Coronavir NL63 PCR NOT DETECTED Nasal Coronavir OC43 PCR NOT DETECTED Nasal Enterovir/Rhinovir PCR NOT DETECTED Nasal Influenza B PCR NOT DETECTED Nasal Influenza A PCR NOT DETECTED Nasal Parainfluen 1 PCR NOT DETECTED Nasal Parainfluen 2 PCR NOT DETECTED Nasal Parainfluen 3 PCR NOT DETECTED Nasal Parainfluen 4 PCR NOT DETECTED Nasal RSV (PCR) NOT DETECTED Nasal Screen MRSA (PCR) (NEGATIVE) Nasal B.pertussis DNA PCR NOT DETECTED Nasal C.pneumoniae (PCR) NOT DETECTED Clay Human Metapneumo PCR NOT DETECTED Nasal M.pneumoniae (PCR) NOT DETECTED Nasal SARS-CoV-2 (PCR) DETECTED A 01/03/24 Range/Units 18:40 WBC 14.9 H (4.8-10.8) x10^3/uL RBC 4.15 L (4.70-6.10) 10^6/uL Hgb 12.7 L (14.0-18.0) g/dL Hct 38.8 L (42.0-52.0) % MCV 93.5 (80.0-94.0) fL MCH 30.6 (27.0-31.0) pg MCHC 32.7 (32.0-36.0) g/dL RDW 12.3 (12.0-15.0) % Plt Count 241 (130-450) 10^3/uL MPV 10.3 (7.4-11.4) fL Neut # (Auto) 12.5 H (1.5-6.6) 10^3/uL Lymph # (Auto) 1.4 L (1.5-3.5) 10^3/uL [place] # (Auto) 0.9 (0.0-1.0) 10^3/uL Eos # (Auto) 0.0 (0.0-0.7) 10^3/uL Baso # (Auto) 0.0 (0.0-0.1) 10^3/uL Absolute Nucleated RBC 0.00 x10^3/uL Nucleated RBC % 0.0 /100WBC D-Dimer (200.0-255.0) ng/mL VBG pH (7.31-7.41) VBG pCO2 (41-51) mmHg VBG pO2 (25-47) mmHg VBG HCO3 (23-28) mmol/L VBG Total CO2 (24-29) mmol/L VBG O2 Saturation (60-80) % VBG Base Excess (-2 - +2) mmol/L Sodium (135-145) mmol/L Potassium (3.5-4.5) mmol/L Chloride (101-111) mmol/L Carbon Dioxide (21-32) mmol/L Anion Gap (6-13) BUN (6-20) mg/dL Creatinine (0.6-1.3) mg/dL Estimated GFR (MDRD) (>89) Glucose (74-104) mg/dL Lactic Acid (0.5-2.2) mmol/L Calcium (8.5-10.3) mg/dL Magnesium (1.7-2.3) mg/dL Total Bilirubin (0.2-1.0) mg/dL AST (10-42) IU/L ALT (10-60) IU/L Alkaline Phosphatase (42-121) IU/L Total Creatine Kinase (30-223) IU/L Troponin I High Sens (2.3-19.7) ng/L C-Reactive Protein (<0.5) mg/dL Total Protein (6.4-8.9) g/dL Albumin (3.2-5.5) g/dL Globulin (2.1-4.2) g/dL Albumin/Globulin Ratio (1.0-2.2) LDL Cholesterol Direct (75-193) mg/dL Nasal Adenovirus (PCR) Nasal B. parapertussis DNA (PCR) Nasal Coronavir 229E PCR Nasal Coronavir HKU1 PCR Nasal Coronavir NL63 PCR Nasal Coronavir OC43 PCR Nasal Enterovir/Rhinovir PCR Nasal Influenza B PCR Nasal Influenza A PCR Nasal Parainfluen 1 PCR Nasal Parainfluen 2 PCR Nasal Parainfluen 3 PCR Nasal Parainfluen 4 PCR Nasal RSV (PCR) Nasal Screen MRSA (PCR) (NEGATIVE) Nasal B.pertussis DNA PCR Nasal C.pneumoniae (PCR) [place] Human Metapneumo PCR Nasal M.pneumoniae (PCR) Nasal SARS-CoV-2 (PCR) - Diagnostic Imaging Diagnostic Imaging Results: positive: Final report reviewed Sepsis Event Note (H) - Evaluation Current Stage of Sepsis: Ruled out Assessment/Plan - Problem List (1) Respiratory failure Impression: Acute hypoxemic respiratory failure, secondary to pneumonia, COVID-19 infection High flow support for oxygenation Continue with steroid Ceftriaxone and azithromycin Remdesivir Encourage incentive spirometer use DuoNeb use and 3% of saline inhalation to help with mucus clearance Qualifiers: Chronicity: acute Respiratory failure complication: hypoxia Qualified Code(s): J96.01 - Acute respiratory failure with hypoxia (2) Atrial flutter Impression: History of Paroxysmal A-fib a flutter Currently in sinus rhythm, Heart rate normal range EKG also shows QTc 474 almost normal Continue telemetry continue home meds Not on rate control agent, Not on blood thinner Give low-dose metoprolol For rate control Give Eliquis, with such a high D-dimer with concerns of clots (3) Elevated d-dimer Impression: D-dimer 1050, with severe hypoxia, needs high flow CTA to rule out PE (4) Elevated CK Impression: CK 1500, possible rhabdomyolysis from recent fall check LDH, Urine myoglobin monitoring renal function Iv fluid
[2024-01-04 08:48] LABS: CALCIUM, IONIZED 1.04 mmol/L (1.15-1.33); LYMPHOCYTES % (AUTO) 8.1 %; VBG PH 7.399 (7.31-7.41)
[2024-01-04 08:51] LABS: BASOPHILS % (AUTO) 0.3 %; EOSINOPHILS # (AUTO) 0.1 10^3/uL (0.0-0.7); EOSINOPHILS % (AUTO) 0.9 %; HCT - HEMATOCRIT 38.4 % (42.0-52.0); HGB - HEMOGLOBIN 12.9 g/dL (14.0-18.0); LYMPHOCYTES # (AUTO) 1.2 10^3/uL (1.5-3.5); MEAN CORPUSCULAR HEMOGLOBIN 31.4 pg (27.0-31.0); MEAN CORPUSCULAR HGB CONC 33.6 g/dL (32.0-36.0); MEAN CORPUSCULAR VOLUME 93.4 fL (80.0-94.0); MEAN PLATELET VOLUME 10.5 fL (7.4-11.4); MONOCYTES # (AUTO) 0.3 10^3/uL (0.0-1.0); MONOCYTES % (AUTO) 2.3 %; NEUTROPHILS # (AUTO) 13.2 10^3/uL (1.5-6.6); PLT - PLATELET COUNT 217 10^3/uL (130-450); RED BLOOD COUNT 4.11 10^6/uL (4.70-6.10); RED CELL DISTRIBUTION WIDTH 12.4 % (12.0-15.0)
[2024-01-04] MEDS: DEXAMETHASONE 10 MG/ML VIAL IVP SCH (08:56)
[2024-01-04] MEDS: ENOXAPARIN 40 MG/0.4 ML SYRINGE SUBQ SCH (08:56)
[2024-01-04] MEDS: guaiFENesin/DEXTROMETHORPHAN 10 ML UDC PO SCH (08:56)
[2024-01-04 09:08] LABS: ALBUMIN 3.2 g/dL (3.2-5.5); BILIRUBIN,TOTAL 0.5 mg/dL (0.2-1.0); CALCIUM 8.6 mg/dL (8.5-10.3); CREATININE 1.2 mg/dL (0.6-1.3); MAGNESIUM 2.1 mg/dL (1.7-2.3); PHOSPHORUS 4.5 mg/dL (2.5-5.0); POTASSIUM 3.9 mmol/L (3.5-4.5); TOTAL PROTEIN 6.4 g/dL (6.4-8.9)
[2024-01-04] MEDS: CALCIUM CARBONATE CHEW 500 MG TABLET PO SCH ×2 (09:54→19:17)
--- NOTE | 2024-01-04 10:59 | PHARMACY PROGRESS NOTE ---
- Best Possible Medication History Admit Date and Time: 01/03/242011 Processed by: Pharmacy Medications reviewed in ED?: Yes Medication History completed: Yes Secondary Source(s): Insurance records, Facility MAR as ONLY source As the person ultimately responsible for medication therapy, providers are able to order a medication from an existing home medication list in [facility] via the "Reconcile Routine" prior to Confirmation of that medication by web support engineer. Such practice is discouraged except when the physician, in their clinical judgment, deems that a medical need exists for a medication without regard to previous use.
[2024-01-04] MEDS: BENZOCAINE/MENTHOL LOZENGE MM PRN (14:16)
[2024-01-04 14:25] LABS: BILIRUBIN,URINE NEGATIVE (NEGATIVE); GLUCOSE, URINE (UA) NEGATIVE (NEGATIVE); KETONES,URINE (UA) NEGATIVE (NEGATIVE); LEUKOCYTE ESTERASE, URINE NEGATIVE (NEGATIVE); NITRITE,URINE NEGATIVE (NEGATIVE); OCCULT BLOOD,URINE NEGATIVE (NEGATIVE); PH,URINE 5.5 PH (5.0-7.5); PROTEIN,URINE TRACE mg/dL (NEGATIVE); UROBILINOGEN,URINE 0.2 (NORMAL) E.U./dL (NORMAL)
[2024-01-04] MEDS: SODIUM CHLORIDE 0.9% 1,000 ML IV SCH (14:25)
[2024-01-04] MEDS: REMDESIVIR 200 MG in SODIUM CHLORIDE 0.9% 250 ML IV ONE (14:25)
[2024-01-04 14:26] LABS: CLARITY,URINE CLEAR (CLEAR)
[2024-01-04] MEDS ORDERED: iohexoL-300 100 ML VIAL ONE (15:22)
--- NOTE | 2024-01-04 16:26 | CT Report ---
PROCEDURE: Angio Chest INDICATIONS: Please evaluate for PE, D-dimer 1050, covid pneumonia CONTRAST: 80ml omni 300 TECHNIQUE: After the administration of intravenous contrast, 2 mm axial images were acquired from the pulmonary apices to the posterior costophrenic angles during the arterial phase. In addition, 1 mm lung kernel and 5 mm soft tissue kernel reconstructions were performed. 3-dimensional coronal oblique maximum int ensity projection (MIP) reformats, 8 mm axial MIP, and 5 mm coronal and sagittal MPR reformats were t hen performed through the thorax. For radiation dose reduction, the following was used: automated exp osure control, adjustment of mA and/or kV according to patient size. COMPARISON: Correlation is made with chest radiograph, 01/03/2024. FINDINGS: Image quality: There is streak artifact seen through the level of the shoulders. Large vessels: No filling defects within the opacified pulmonary arteries, accounting for motion and contrast timing. Lungs and pleura: Dependent consolidation can be seen within the inferomedial right lower lobe. More poorly defined areas of consolidation can be seen more superiorly within the right lower lobe. Anothe r very likely atelectasis can be seen dependently within the left lower lobe. No pleural effusions. N o pneumothorax. No suspicious pulmonary nodules which require follow up. Mediastinum: Heart size is normal. No pericardial effusion. No large vessel abnormality. Atherosclero tic calcification is seen. No mediastinal adenopathy by size criteria. Chest wall and lower neck: Thyroid is unremarkable. No axillary or supraclavicular adenopathy by size . Bones: No aggressive osseous abnormality. Age-appropriate degenerative changes are seen. There is accentuated thoracic kyphosis. Upper Abdomen: There is a water density cyst along the medial aspect of the left kidney measuring 3.4 cm. The visualized portions of the upper abdominal structures are otherwise within normal limits. IMPRESSION: No pulmonary embolus. Consolidation can be seen within the right lower lobe. A combination of atelectasis and infiltrate is suspected. Additional findings: Simple appearing left renal cyst Reviewed by: Robert Coyle MD on 01/04/2024 3:25 PM [place] Approved by: Robert Coyle MD on 01/04/2024 3:25 PM [facility] Station ID: [id number]
[2024-01-04 18:27] LABS: VBG PH 7.449 (7.31-7.41)
[2024-01-04] MEDS: iohexoL-300 100 ML VIAL IVP ONE (18:27)
[2024-01-04 18:28] LABS: CALCIUM, IONIZED 1.06 mmol/L (1.15-1.33)
[2024-01-04] MEDS: cefTRIAXone 1 GM in SODIUM CHLORIDE 0.9% MINIBAG 100 ML IV SCH (19:17)
[2024-01-04] MEDS ORDERED: APIXABAN 5 MG TABLET PO SCH (21:00)
[2024-01-04] MEDS: AZITHROMYCIN INJ 500 MG in SODIUM CHLORIDE 0.9% 250 ML IV SCH (21:46)
[2024-01-04] MEDS: QUEtiapine 25 MG TABLET PO SCH (21:55)
[2024-01-05] MEDS: HALOPERIDOL 5 MG/ML VIAL IVP PRN (00:19)
[2024-01-05 05:18] LABS: CRP - C-REACTIVE PROTEIN 30.7 mg/dL (<0.5)
[2024-01-05 06:48] LABS: CALCIUM, IONIZED 1.09 mmol/L (1.15-1.33); VBG PH 7.417 (7.31-7.41)
[2024-01-05 07:04] LABS: MAGNESIUM 2.2 mg/dL (1.7-2.3); PHOSPHORUS 3.1 mg/dL (2.5-5.0); POTASSIUM 4.3 mmol/L (3.5-4.5)
--- NOTE | 2024-01-05 08:21 | PROVIDER PROGRESS NOTE ---
Assessment/Plan - Problem List (1) Respiratory failure Qualifiers: Chronicity: acute Respiratory failure complication: hypoxia Qualified Code(s): J96.01 - Acute respiratory failure with hypoxia Assessment/Plan: improved off high flow, on nasal cannula -transfer to [facility] -continue oxygen treatment as needed Continue with remdesivir to complete 3 days dose tomorrow Continue ceftriaxone azithromycin for 5 days treatment course (2) Atrial flutter Assessment/Plan: Paroxysmal Telemetry shows sinus, with episode of short run of V. tach, Since patient is focusing on comfort care and he has been pulling out telemetry leads Discontinue the telemetry today p.m. (3) Elevated d-dimer Assessment/Plan: Ruled out PE No indication for anticoagulants (4) Elevated CK Assessment/Plan: Improved to 612, creatinine stable Encourage patient oral intake - Current Meds Current Meds: Current Medications Generic Name Dose Route Start Last Admin Trade Name Freq PRN Reason Stop Dose Admin Acetaminophen 650 mg 01/03/24 23:08 01/04/24 00:19 Acetaminophen 325 Mg Tablet PO 650 mg Q6HR PRN Administration Pain or Fever > 38C (100.4F) Dexamethasone Sodium Phosphate 6 mg 01/04/24 09:00 01/04/24 08:56 Dexamethasone 10 Mg/Ml Vial IVP 6 mg DAILY MANDA Administration Guaifenesin 10 ml 01/04/24 09:00 01/04/24 21:55 Guaifenesin/Dextromethorphan 10 Ml Udc PO 10 ml BID MANDA Administration Haloperidol 0.5 mg 01/04/24 09:15 01/05/24 00:19 Haloperidol 5 Mg/Ml Vial IVP 0.5 mg Q6H PRN Administration Agitation Ceftriaxone Sodium 1 gm/ 100 mls @ 200 mls/hr 01/04/24 20:00 01/04/24 20:00 Sodium Chloride IV 01/07/24 20:29 Infused Q24H MANDA Infusion Azithromycin 500 mg/ Sodium 250 mls @ 250 mls/hr 01/04/24 21:00 01/04/24 22:50 Chloride IV 01/05/24 21:59 Infused Q24H MANDA Infusion Sodium Chloride 1,000 mls @ 83.333 mls/hr 01/04/24 14:00 01/05/24 06:03 Normal Saline 0.9% IV 01/05/24 13:59 83.333 mls/hr .Q12H MANDA Administration Multi-Ingredient Ointment 1 applic 01/03/24 22:19 01/03/24 22:33 Zinc Oxide 20% Oint 30 Gm Tube TOP 1 applic PRN PRN Administration Skin Care Quetiapine Fumarate 25 mg 01/04/24 21:00 01/04/24 21:55 Quetiapine 25 Mg Tablet PO 25 mg QPM MANDA Administration Sodium Chloride 10 ml 01/04/24 01:00 01/05/24 00:19 Sodium Chloride Flush 0.9% 10 Ml Syringe IVP 10 ml 0100,0900,1700 MANDA Administration Throat Lozenges 1 lozenge 01/04/24 12:55 01/04/24 14:16 Benzocaine/Menthol Lozenge MM 1 lozenge Q2HR PRN Administration Mouth Sore Pain - Lab Result Fish Bone Diagrams: 01/04/24 08:40 01/05/24 06:37 - Additional Planning My Orders: My Active Orders 01/04/24 08:35 Initiate ICU Electrolyte Prot. [RC] QSHIFT 01/04/24 09:00 guaiFENesin/DEXTROMETHORPHAN [Robitussin Dm] 10 ml PO BID 01/04/24 09:15 Haloperidol Inj [Haldol Inj] 0.5 mg IVP Q6H PRN 01/04/24 Lunch DIET [Soft Mechanical Diet] [DIET] 01/04/24 12:55 Benzocaine/Menthol [Cepacol] 1 lozenge MM Q2HR PRN 01/04/24 14:00 Sodium Chloride 0.9% [Normal Saline 0.9%] 1,000 ml IV 83.333 mls/hr 01/04/24 21:00 QUEtiapine [SEROquel] 25 mg PO QPM 01/05/24 08:19 Admit \ Transfer \ Status [RC] .ONCE 01/05/24 09:00 Enoxaparin [Lovenox] 40 mg SUBQ DAILY Metoprolol Succinate [Toprol Xl] 25 mg PO DAILY Remdesivir [Veklury] 100 mg Sodium Chloride 0.9% 100Ml [Normal Saline 0.9% 100Ml] 100 ml IV DAILY 01/06/24 05:00 CK- CREATINE KINASE [CHEM] DAILYLAB CRP - C-REACTIVE PROTEIN [CHEM] DAILYLAB 01/07/24 05:00 CK- CREATINE KINASE [CHEM] DAILYLAB CRP - C-REACTIVE PROTEIN [CHEM] DAILYLAB 01/08/24 05:00 CRP - C-REACTIVE PROTEIN [CHEM] DAILYLAB 01/09/24 05:00 CRP - C-REACTIVE PROTEIN [CHEM] DAILYLAB Subjective - Subjective Patient Reports: Feeling Better, Other (Off high flow, states feels good. Patient is demented, can be agitated from time to time) Objective Vital Signs: Vital Signs - 24 hr 01/04/24 01/04/24 01/04/24 08:00 08:31 09:00 Temperature 97.7 C H Heart Rate [ 75 70 Monitoring electrodes] Respiratory 9 L 19 Rate Blood Pressure 104/65 102/60 [Left Brachial artery] Blood Pressure [Right Brachial artery] O2 Saturation 97 99 If not protocol 30 30 30 : Oxygen Flow, liters/minute 01/04/24 01/04/24 01/04/24 10:00 11:00 13:00 Temperature Heart Rate [ 78 83 77 Monitoring electrodes] Respiratory 19 26 H 27 H Rate Blood Pressure 90/69 101/73 112/96 H [Left Brachial artery] Blood Pressure [Right Brachial artery] O2 Saturation 95 95 96 If not protocol 30 30 30 : Oxygen Flow, liters/minute 01/04/24 01/04/24 01/04/24 14:00 15:00 16:00 Temperature Heart Rate [ 80 72 76 Monitoring electrodes] Respiratory 21 27 H 24 Rate Blood Pressure 103/84 H 97/52 L 110/55 L [Left Brachial artery] Blood Pressure [Right Brachial artery] O2 Saturation 99 88 L 93 If not protocol 30 30 30 : Oxygen Flow, liters/minute 01/04/24 01/04/24 01/04/24 17:00 18:00 18:45 Temperature Heart Rate [ 79 75 Monitoring electrodes] Respiratory 18 31 H Rate Blood Pressure 115/62 85/74 L [Left Brachial artery] Blood Pressure [Right Brachial artery] O2 Saturation 90 L 93 If not protocol 30 30 25 : Oxygen Flow, liters/minute 01/04/24 01/04/24 01/04/24 19:00 20:00 21:00 Temperature 36.6 C Heart Rate [ 75 78 74 Monitoring electrodes] Respiratory 22 20 21 Rate Blood Pressure 90/54 L 109/70 [Left Brachial artery] Blood Pressure 105/58 L [Right Brachial artery] O2 Saturation 95 96 93 If not protocol 25 25 4 : Oxygen Flow, liters/minute 01/04/24 01/04/24 01/05/24 22:00 23:00 00:00 Temperature Heart Rate [ 71 76 74 Monitoring electrodes] Respiratory 24 22 24 Rate Blood Pressure [Left Brachial artery] Blood Pressure 115/56 L 91/72 100/57 L [Right Brachial artery] O2 Saturation 96 95 93 If not protocol 4 4 2 : Oxygen Flow, liters/minute 01/05/24 01/05/24 01/05/24 01:00 03:00 04:00 Temperature 36.8 C Heart Rate [ 75 88 69 Monitoring electrodes] Respiratory 18 23 19 Rate Blood Pressure [Left Brachial artery] Blood Pressure 102/54 L 101/58 L 102/57 L [Right Brachial artery] O2 Saturation 94 94 95 If not protocol 2 2 2 : Oxygen Flow, liters/minute 01/05/24 01/05/24 01/05/24 05:00 06:00 07:00 Temperature Heart Rate [ 69 77 74 Monitoring electrodes] Respiratory 20 21 15 Rate Blood Pressure [Left Brachial artery] Blood Pressure 105/61 116/56 L 104/60 [Right Brachial artery] O2 Saturation 95 96 97 If not protocol 2 2 2 : Oxygen Flow, liters/minute Oxygen O2 Source Nasal cannula Oxygen Flow Rate 4 I&O (Last 24 Hrs): Intake and Output Totals x24h 01/03/24 01/04/24 01/06/24 23:59 23:59 00:59 Intake Total 250 1470 1200 Output Total 200 400 250 Balance 50 1070 950 General: Alert, Mild distress HEENT: PERRLA, EOMI, Other ([place] was put in on 12/27/2023, per facility, it can be removed in 10 to 14 days) Neuro: Alert, Disoriented, Non Focal Cardiovascular: Regular rate Respiratory: Chest non-tender Abdomen: Soft Extremities: No edema - Results Results: Laboratory Results WBC 15.0 x10^3/uL (4.8-10.8) H 01/04/24 08:40 RBC 4.11 10^6/uL (4.70-6.10) L 01/04/24 08:40 Hgb 12.9 g/dL (14.0-18.0) L 01/04/24 08:40 Hct 38.4 % (42.0-52.0) L 01/04/24 08:40 MCV 93.4 fL (80.0-94.0) 01/04/24 08:40 MCH 31.4 pg (27.0-31.0) H 01/04/24 08:40 MCHC 33.6 g/dL (32.0-36.0) 01/04/24 08:40 RDW 12.4 % (12.0-15.0) 01/04/24 08:40 Plt Count 217 10^3/uL (130-450) 01/04/24 08:40 MPV 10.5 fL (7.4-11.4) 01/04/24 08:40 Neut # (Auto) 13.2 10^3/uL (1.5-6.6) H 01/04/24 08:40 Lymph # (Auto) 1.2 10^3/uL (1.5-3.5) L 01/04/24 08:40 [place] # (Auto) 0.3 10^3/uL (0.0-1.0) 01/04/24 08:40 Eos # (Auto) 0.1 10^3/uL (0.0-0.7) 01/04/24 08:40 Baso # (Auto) 0.0 10^3/uL (0.0-0.1) 01/04/24 08:40 Absolute Nucleated RBC 0.00 x10^3/uL 01/04/24 08:40 Nucleated RBC % 0.0 /100WBC 01/04/24 08:40 D-Dimer > 1050.0 ng/mL (200.0-255.0) H 01/03/24 18:53 VBG pH 7.417 (7.31-7.41) H 01/05/24 06:37 VBG pCO2 42.6 mmHg (41-51) 01/03/24 18:40 VBG pO2 36.9 mmHg (25-47) 01/03/24 18:40 VBG HCO3 27.3 mmol/L (23-28) 01/03/24 18:40 VBG Total CO2 28.6 mmol/L (24-29) 01/03/24 18:40 VBG O2 Saturation 71.7 % (60-80) 01/03/24 18:40 VBG Base Excess 2.5 mmol/L (-2 - +2) H 01/03/24 18:40 Ionized Calcium 1.09 mmol/L (1.15-1.33) L 01/05/24 06:37 Sodium 136 mmol/L (135-145) 01/04/24 08:40 Potassium 4.3 mmol/L (3.5-4.5) 01/05/24 06:37 Chloride 99 mmol/L (101-111) L 01/04/24 08:40 Carbon Dioxide 28 mmol/L (21-32) 01/04/24 08:40 Anion Gap 9.0 (6-13) 01/04/24 08:40 BUN 33 mg/dL (6-20) H 01/04/24 08:40 Creatinine 1.2 mg/dL (0.6-1.3) 01/04/24 08:40 Estimated GFR (MDRD) 57 (>89) L 01/04/24 08:40 Glucose 159 mg/dL (74-104) H 01/04/24 08:40 Lactic Acid 1.8 mmol/L (0.5-2.2) 01/03/24 20:45 Calcium 8.6 mg/dL (8.5-10.3) 01/04/24 08:40 Phosphorus 3.1 mg/dL (2.5-5.0) 01/05/24 06:37 Magnesium 2.2 mg/dL (1.7-2.3) 01/05/24 06:37 Total Bilirubin 0.5 mg/dL (0.2-1.0) 01/04/24 08:40 AST 63 IU/L (10-42) H 01/04/24 08:40 ALT 25 IU/L (10-60) 01/04/24 08:40 Alkaline Phosphatase 44 IU/L (42-121) 01/04/24 08:40 Lactate Dehydrogenase 254 IU/L (140-271) 01/04/24 08:40 Total Creatine Kinase 612 IU/L (30-223) H 01/05/24 04:30 Troponin I High Sens 72.9 ng/L (2.3-19.7) H* 01/03/24 20:45 C-Reactive Protein 30.7 mg/dL (<0.5) H 01/05/24 04:30 Total Protein 6.4 g/dL (6.4-8.9) 01/04/24 08:40 Albumin 3.2 g/dL (3.2-5.5) 01/04/24 08:40 Globulin 3.2 g/dL (2.1-4.2) 01/04/24 08:40 Albumin/Globulin Ratio 1.0 (1.0-2.2) 01/04/24 08:40 LDL Cholesterol Direct 62 mg/dL (75-193) L 01/03/24 18:53 Urine Color DARK YELLOW 01/04/24 13:45 Urine Clarity CLEAR (CLEAR) 01/04/24 13:45 Urine pH 5.5 PH (5.0-7.5) 01/04/24 13:45 Ur Specific [place] >=1.030 (1.002-1.030) H 01/04/24 13:45 Urine Protein TRACE mg/dL (NEGATIVE) 01/04/24 13:45 Urine Glucose (UA) NEGATIVE mg/dL (NEGATIVE) 01/04/24 13:45 Urine Ketones NEGATIVE mg/dL (NEGATIVE) 01/04/24 13:45 Urine Occult Blood NEGATIVE (NEGATIVE) 01/04/24 13:45 Urine Nitrite NEGATIVE (NEGATIVE) 01/04/24 13:45 Urine Bilirubin NEGATIVE (NEGATIVE) 01/04/24 13:45 Urine Urobilinogen 0.2 (NORMAL) E.U./dL (NORMAL) 01/04/24 13:45 Ur Leukocyte Esterase NEGATIVE (NEGATIVE) 01/04/24 13:45 Ur Microscopic Review NOT INDICATED 01/04/24 13:45 Urine Culture Comments NOT INDICATED 01/04/24 13:45 Nasal Adenovirus (PCR) NOT DETECTED 01/03/24 18:53 Nasal B. parapertussis DNA (PCR) NOT DETECTED 01/03/24 18:53 Nasal Coronavir 229E PCR NOT DETECTED 01/03/24 18:53 Nasal Coronavir HKU1 PCR NOT DETECTED 01/03/24 18:53 Nasal Coronavir NL63 PCR NOT DETECTED 01/03/24 18:53 Nasal Coronavir OC43 PCR NOT DETECTED 01/03/24 18:53 Nasal Enterovir/Rhinovir PCR NOT DETECTED 01/03/24 18:53 Nasal Influenza B PCR NOT DETECTED 01/03/24 18:53 Nasal Influenza A PCR NOT DETECTED 01/03/24 18:53 Nasal Parainfluen 1 PCR NOT DETECTED 01/03/24 18:53 Nasal Parainfluen 2 PCR NOT DETECTED 01/03/24 18:53 Nasal Parainfluen 3 PCR NOT DETECTED 01/03/24 18:53 Nasal Parainfluen 4 PCR NOT DETECTED 01/03/24 18:53 Nasal RSV (PCR) NOT DETECTED 01/03/24 18:53 Nasal Screen MRSA (PCR) NEGATIVE (NEGATIVE) 01/03/24 22:30 Nasal B.pertussis DNA PCR NOT DETECTED 01/03/24 18:53 Nasal C.pneumoniae (PCR) NOT DETECTED 01/03/24 18:53 [place] Human Metapneumo PCR NOT DETECTED 01/03/24 18:53 Nasal M.pneumoniae (PCR) NOT DETECTED 01/03/24 18:53 Nasal SARS-CoV-2 (PCR) DETECTED A 01/03/24 18:53 - Procedures Procedures: Procedures HEMORRHOID EVACUATION (07/12/13) REPLACEMENT OF LEFT LENS WITH SYNTH SUB, PERC APPROACH (03/26/19) 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) Sepsis Event Note (H) - Evaluation Current Stage of Sepsis: Ruled out ABX Reporting Has patient been on IV antibiotics over the past 48 hours?: Yes Current Medications - Current Medications Current Medications: Active Medications Acetaminophen (Acetaminophen 325 Mg Tablet) 650 mg PO Q6HR PRN PRN Reason: Pain or Fever > 38C (100.4F) Last Admin: 01/05/24 09:01 Dose: 650 mg Albuterol/Ipratropium (Ipratropium/Albuterol 3 Ml Neb) 3 ml INH RTQ4H PRN PRN Reason: Wheezing Dexamethasone Sodium Phosphate (Dexamethasone 10 Mg/Ml Vial) 6 mg IVP DAILY [facility] Last Admin: 01/05/24 08:48 Dose: 6 mg Enoxaparin Sodium (Enoxaparin 40 Mg/0.4 Ml Syringe) 40 mg SUBQ DAILY [facility] Last Admin: 01/05/24 08:48 Dose: 40 mg Guaifenesin (Guaifenesin/Dextromethorphan 10 Ml Udc) 10 ml PO BID [facility] Last Admin: 01/05/24 08:48 Dose: 10 ml Haloperidol (Haloperidol 5 Mg/Ml Vial) 0.5 mg IVP Q6H PRN PRN Reason: Agitation Last Admin: 01/05/24 00:19 Dose: 0.5 mg Ceftriaxone Sodium 1 gm/ (Sodium Chloride) 100 mls @ 200 mls/hr IV Q24H [facility] Stop: 01/07/24 20:29 Last Infusion: 01/04/24 20:00 Dose: Infused Azithromycin 500 mg/ Sodium (Chloride) 250 mls @ 250 mls/hr IV Q24H [facility] Stop: 01/05/24 21:59 Last Infusion: 01/04/24 22:50 Dose: Infused Remdesivir 100 mg/ Sodium (Chloride) 100 mls @ 200 mls/hr IV DAILY [facility] Stop: 01/06/24 09:29 Last Infusion: 01/05/24 09:55 Dose: Infused Metoprolol Succinate (Metoprolol Succinate 25 Mg Tablet) 25 mg PO DAILY [facility] Last Admin: 01/05/24 08:49 Dose: Not Given Multi-Ingredient Ointment (Zinc Oxide 20% Oint 30 Gm Tube) 1 applic TOP PRN PRN PRN Reason: Skin Care Last Admin: 01/03/24 22:33 Dose: 1 applic Ondansetron HCl (Ondansetron 4 Mg/2 Ml Vial) 4 mg IVP Q6HR PRN PRN Reason: Nausea / Vomiting Quetiapine Fumarate (Quetiapine 25 Mg Tablet) 25 mg PO QPM [facility] Last Admin: 01/04/24 21:55 Dose: 25 mg Sodium Chloride (Sodium Chloride Flush 0.9% 10 Ml Syringe) 10 ml IVP PRN PRN PRN Reason: NEEDED PER PROVIDER ORDERS Sodium Chloride (Sodium Chloride Flush 0.9% 10 Ml Syringe) 10 ml IVP 0100,0900,1700 [facility] Last Admin: 01/05/24 17:02 Dose: 10 ml Throat Lozenges (Benzocaine/Menthol Lozenge) 1 lozenge MM Q2HR PRN PRN Reason: Mouth Sore Pain Last Admin: 01/05/24 08:48 Dose: 1 lozenge Acetaminophen [Tylenol] 650 mg PO Q6H PRN 01/03/24 Nirmatrelvir/Ritonavir [Paxlovid 150-100 mg Dose Pack] 2 each PO BID 01/03/24 guaiFENesin [Mucus ER] 600 mg PO BID PRN 01/03/24 Mag Hydrox/Aluminum Hyd/Simeth [Alum-Mag Hydroxide-Simeth Cup] 30 ml PO Q4H PRN 01/04/24 Magnesium Hydroxide [Milk of Magnesia] 30 ml PO DAILY PRN 01/04/24
[2024-01-05] MEDS ORDERED: SODIUM CHLORIDE 0.9% 100ML 100 ML IV ONE (08:39)
[2024-01-05] MEDS: ENOXAPARIN 40 MG/0.4 ML SYRINGE SUBQ SCH (08:48)
[2024-01-05] MEDS: REMDESIVIR 100 MG in SODIUM CHLORIDE 0.9% 100ML 100 ML IV SCH (08:48)
[2024-01-05] MEDS: CALCIUM CARBONATE CHEW 500 MG TABLET PO SCH (08:48)
[2024-01-05] MEDS: METOPROLOL SUCCINATE 25 MG TABLET PO SCH (08:49)
[2024-01-06] MEDS ORDERED: SODIUM CHLORIDE 0.9% 100ML 100 ML IV ONE (08:14)
[2024-01-06] MEDS ORDERED: HALOPERIDOL 5 MG/ML VIAL IVP PRN (08:21)
--- NOTE | 2024-01-06 08:24 | PROVIDER PROGRESS NOTE ---
Assessment/Plan - Problem List (1) Respiratory failure Qualifiers: Chronicity: acute Respiratory failure complication: hypoxia Qualified Code(s): J96.01 - Acute respiratory failure with hypoxia Assessment/Plan: Improving, appears stable, on oxygen by nasal cannula Continue treat COVID and possible bacterial pneumonia (2) Atrial flutter Assessment/Plan: Chronic condition, rate controlled no further intervention indicated (3) Elevated d-dimer Assessment/Plan: Ruled out PE by CTA, also his daughter does not want patient on blood thinner (4) Elevated CK Assessment/Plan: Improving, likely secondary to the fall patient had 10 days ago (5) COVID-19 Assessment/Plan: Finish 3 doses of remdesivir treatment, continue dexamethasone, may consider short course of dexamethasone use if hypoxia continues improving Continue 5 days treatment course of ceftriaxone to be completed tomorrow - Current Meds Current Meds: Current Medications Generic Name Dose Route Start Last Admin Trade Name Freq PRN Reason Stop Dose Admin Acetaminophen 650 mg 01/03/24 23:08 01/05/24 09:01 Acetaminophen 325 Mg Tablet PO 650 mg Q6HR PRN Administration Pain or Fever > 38C (100.4F) Dexamethasone Sodium Phosphate 6 mg 01/04/24 09:00 01/05/24 08:48 Dexamethasone 10 Mg/Ml Vial IVP 6 mg DAILY MANDA Administration Enoxaparin Sodium 40 mg 01/05/24 09:00 01/05/24 08:48 Enoxaparin 40 Mg/0.4 Ml Syringe SUBQ 40 mg DAILY MANDA Administration Guaifenesin 10 ml 01/04/24 09:00 01/05/24 20:15 Guaifenesin/Dextromethorphan 10 Ml Udc PO 10 ml BID MANDA Administration Ceftriaxone Sodium 1 gm/ 100 mls @ 200 mls/hr 01/04/24 20:00 01/05/24 20:45 Sodium Chloride IV 01/07/24 20:29 Infused Q24H MANDA Infusion Remdesivir 100 mg/ Sodium 100 mls @ 200 mls/hr 01/05/24 09:00 01/05/24 09:55 Chloride IV 01/06/24 09:29 Infused DAILY MANDA Infusion Metoprolol Succinate 25 mg 01/05/24 09:00 01/05/24 08:49 Metoprolol Succinate 25 Mg Tablet PO Not Given DAILY MANDA Multi-Ingredient Ointment 1 applic 01/03/24 22:19 01/03/24 22:33 Zinc Oxide 20% Oint 30 Gm Tube TOP 1 applic PRN PRN Administration Skin Care Quetiapine Fumarate 25 mg 01/04/24 21:00 01/05/24 20:12 Quetiapine 25 Mg Tablet PO 25 mg QPM MANDA Administration Sodium Chloride 10 ml 01/04/24 01:00 01/06/24 00:20 Sodium Chloride Flush 0.9% 10 Ml Syringe IVP 10 ml 0100,0900,1700 MANDA Administration Throat Lozenges 1 lozenge 01/04/24 12:55 01/05/24 08:48 Benzocaine/Menthol Lozenge MM 1 lozenge Q2HR PRN Administration Mouth Sore Pain - Lab Result Lab results reviewed: Yes Fish Bone Diagrams: 01/04/24 08:40 01/05/24 06:37 - Additional Planning Condition/Complexity: Improved My Orders: My Active Orders 01/05/24 09:00 Enoxaparin [Lovenox] 40 mg SUBQ DAILY Metoprolol Succinate [Toprol Xl] 25 mg PO DAILY Remdesivir [Veklury] 100 mg Sodium Chloride 0.9% 100Ml [Normal Saline 0.9% 100Ml] 100 ml IV DAILY 01/06/24 05:00 CK- CREATINE KINASE [CHEM] DAILYLAB CRP - C-REACTIVE PROTEIN [CHEM] DAILYLAB 01/06/24 08:21 Haloperidol Inj [Haldol Inj] 1 mg IVP Q6H PRN LORazepam [Ativan] 1 mg PO Q6H PRN 01/07/24 05:00 CK- CREATINE KINASE [CHEM] DAILYLAB CRP - C-REACTIVE PROTEIN [CHEM] DAILYLAB 01/08/24 05:00 CRP - C-REACTIVE PROTEIN [CHEM] DAILYLAB 01/09/24 05:00 CRP - C-REACTIVE PROTEIN [CHEM] DAILYLAB Time Spent: 15-30 minutes Additional Planning Notes: Complete IV ceftriaxone tomorrow, may consider to discharge patient back to his facility tomorrow Home O2 eval may need to be done prior to discharge Objective Vital Signs: Vital Signs - 24 hr 01/05/24 01/05/24 01/05/24 08:55 09:00 10:00 Temperature Heart Rate [ Brachial] Heart Rate [ 74 79 Monitoring electrodes] Respiratory 25 H 20 Rate Blood Pressure 102/60 110/91 H [Right Brachial artery] O2 Saturation 94 94 If not protocol 4 : Oxygen Flow, liters/minute 01/05/24 01/05/24 01/05/24 11:07 12:24 15:49 Temperature 36.8 C 36.6 C 36.9 C Heart Rate [ 71 73 81 Brachial] Heart Rate [ Monitoring electrodes] Respiratory 20 18 24 Rate Blood Pressure 102/53 L 113/58 L 122/66 [Right Brachial artery] O2 Saturation 92 95 94 If not protocol : Oxygen Flow, liters/minute 01/05/24 01/06/24 01/06/24 20:53 00:10 05:15 Temperature 36.7 C 36.6 C 36.6 C Heart Rate [ 67 74 75 Brachial] Heart Rate [ Monitoring electrodes] Respiratory 16 20 18 Rate Blood Pressure 126/67 121/65 124/67 [Right Brachial artery] O2 Saturation 94 93 94 If not protocol : Oxygen Flow, liters/minute 01/06/24 07:21 Temperature 36.5 C Heart Rate [ 83 Brachial] Heart Rate [ Monitoring electrodes] Respiratory 18 Rate Blood Pressure 132/70 H [Right Brachial artery] O2 Saturation 92 If not protocol : Oxygen Flow, liters/minute Oxygen O2 Source Room air Oxygen Flow Rate 4 I&O (Last 24 Hrs): Intake and Output Totals x24h 01/04/24 01/05/24 01/06/24 22:59 23:59 23:59 Intake Total Output Total 350 Balance -350 - Results Results: Laboratory Results WBC 15.0 x10^3/uL (4.8-10.8) H 01/04/24 08:40 RBC 4.11 10^6/uL (4.70-6.10) L 01/04/24 08:40 Hgb 12.9 g/dL (14.0-18.0) L 01/04/24 08:40 Hct 38.4 % (42.0-52.0) L 01/04/24 08:40 MCV 93.4 fL (80.0-94.0) 01/04/24 08:40 MCH 31.4 pg (27.0-31.0) H 01/04/24 08:40 MCHC 33.6 g/dL (32.0-36.0) 01/04/24 08:40 RDW 12.4 % (12.0-15.0) 01/04/24 08:40 Plt Count 217 10^3/uL (130-450) 01/04/24 08:40 MPV 10.5 fL (7.4-11.4) 01/04/24 08:40 Neut # (Auto) 13.2 10^3/uL (1.5-6.6) H 01/04/24 08:40 Lymph # (Auto) 1.2 10^3/uL (1.5-3.5) L 01/04/24 08:40 [place] # (Auto) 0.3 10^3/uL (0.0-1.0) 01/04/24 08:40 Eos # (Auto) 0.1 10^3/uL (0.0-0.7) 01/04/24 08:40 Baso # (Auto) 0.0 10^3/uL (0.0-0.1) 01/04/24 08:40 Absolute Nucleated RBC 0.00 x10^3/uL 01/04/24 08:40 Nucleated RBC % 0.0 /100WBC 01/04/24 08:40 D-Dimer > 1050.0 ng/mL (200.0-255.0) H 01/03/24 18:53 VBG pH 7.417 (7.31-7.41) H 01/05/24 06:37 VBG pCO2 42.6 mmHg (41-51) 01/03/24 18:40 VBG pO2 36.9 mmHg (25-47) 01/03/24 18:40 VBG HCO3 27.3 mmol/L (23-28) 01/03/24 18:40 VBG Total CO2 28.6 mmol/L (24-29) 01/03/24 18:40 VBG O2 Saturation 71.7 % (60-80) 01/03/24 18:40 VBG Base Excess 2.5 mmol/L (-2 - +2) H 01/03/24 18:40 Ionized Calcium 1.09 mmol/L (1.15-1.33) L 01/05/24 06:37 Sodium 136 mmol/L (135-145) 01/04/24 08:40 Potassium 4.3 mmol/L (3.5-4.5) 01/05/24 06:37 Chloride 99 mmol/L (101-111) L 01/04/24 08:40 Carbon Dioxide 28 mmol/L (21-32) 01/04/24 08:40 Anion Gap 9.0 (6-13) 01/04/24 08:40 BUN 33 mg/dL (6-20) H 01/04/24 08:40 Creatinine 1.2 mg/dL (0.6-1.3) 01/04/24 08:40 Estimated GFR (MDRD) 57 (>89) L 01/04/24 08:40 Glucose 159 mg/dL (74-104) H 01/04/24 08:40 Lactic Acid 1.8 mmol/L (0.5-2.2) 01/03/24 20:45 Calcium 8.6 mg/dL (8.5-10.3) 01/04/24 08:40 Phosphorus 3.1 mg/dL (2.5-5.0) 01/05/24 06:37 Magnesium 2.2 mg/dL (1.7-2.3) 01/05/24 06:37 Total Bilirubin 0.5 mg/dL (0.2-1.0) 01/04/24 08:40 AST 63 IU/L (10-42) H 01/04/24 08:40 ALT 25 IU/L (10-60) 01/04/24 08:40 Alkaline Phosphatase 44 IU/L (42-121) 01/04/24 08:40 Lactate Dehydrogenase 254 IU/L (140-271) 01/04/24 08:40 Total Creatine Kinase 612 IU/L (30-223) H 01/05/24 04:30 Troponin I High Sens 72.9 ng/L (2.3-19.7) H* 01/03/24 20:45 C-Reactive Protein 30.7 mg/dL (<0.5) H 01/05/24 04:30 Total Protein 6.4 g/dL (6.4-8.9) 01/04/24 08:40 Albumin 3.2 g/dL (3.2-5.5) 01/04/24 08:40 Globulin 3.2 g/dL (2.1-4.2) 01/04/24 08:40 Albumin/Globulin Ratio 1.0 (1.0-2.2) 01/04/24 08:40 LDL Cholesterol Direct 62 mg/dL (75-193) L 01/03/24 18:53 Urine Color DARK YELLOW 01/04/24 13:45 Urine Clarity CLEAR (CLEAR) 01/04/24 13:45 Urine pH 5.5 PH (5.0-7.5) 01/04/24 13:45 Ur Specific [place] >=1.030 (1.002-1.030) H 01/04/24 13:45 Urine Protein TRACE mg/dL (NEGATIVE) 01/04/24 13:45 Urine Glucose (UA) NEGATIVE mg/dL (NEGATIVE) 01/04/24 13:45 Urine Ketones NEGATIVE mg/dL (NEGATIVE) 01/04/24 13:45 Urine Occult Blood NEGATIVE (NEGATIVE) 01/04/24 13:45 Urine Nitrite NEGATIVE (NEGATIVE) 01/04/24 13:45 Urine Bilirubin NEGATIVE (NEGATIVE) 01/04/24 13:45 Urine Urobilinogen 0.2 (NORMAL) E.U./dL (NORMAL) 01/04/24 13:45 Ur Leukocyte Esterase NEGATIVE (NEGATIVE) 01/04/24 13:45 Ur Microscopic Review NOT INDICATED 01/04/24 13:45 Urine Culture Comments NOT INDICATED 01/04/24 13:45 Nasal Adenovirus (PCR) NOT DETECTED 01/03/24 18:53 Nasal B. parapertussis DNA (PCR) NOT DETECTED 01/03/24 18:53 Nasal Coronavir 229E PCR NOT DETECTED 01/03/24 18:53 Nasal Coronavir HKU1 PCR NOT DETECTED 01/03/24 18:53 Nasal Coronavir NL63 PCR NOT DETECTED 01/03/24 18:53 Nasal Coronavir OC43 PCR NOT DETECTED 01/03/24 18:53 Nasal Enterovir/Rhinovir PCR NOT DETECTED 01/03/24 18:53 Nasal Influenza B PCR NOT DETECTED 01/03/24 18:53 Nasal Influenza A PCR NOT DETECTED 01/03/24 18:53 Nasal Parainfluen 1 PCR NOT DETECTED 01/03/24 18:53 Nasal Parainfluen 2 PCR NOT DETECTED 01/03/24 18:53 Nasal Parainfluen 3 PCR NOT DETECTED 01/03/24 18:53 Nasal Parainfluen 4 PCR NOT DETECTED 01/03/24 18:53 Nasal RSV (PCR) NOT DETECTED 01/03/24 18:53 Nasal Screen MRSA (PCR) NEGATIVE (NEGATIVE) 01/03/24 22:30 Nasal B.pertussis DNA PCR NOT DETECTED 01/03/24 18:53 Nasal C.pneumoniae (PCR) NOT DETECTED 01/03/24 18:53 [place] Human Metapneumo PCR NOT DETECTED 01/03/24 18:53 Nasal M.pneumoniae (PCR) NOT DETECTED 01/03/24 18:53 Nasal SARS-CoV-2 (PCR) DETECTED A 01/03/24 18:53 - Procedures Procedures: Procedures HEMORRHOID EVACUATION (07/12/13) REPLACEMENT OF LEFT LENS WITH SYNTH SUB, PERC APPROACH (03/26/19) 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) Sepsis Event Note (H) - Evaluation Current Stage of Sepsis: Ruled out ABX Reporting Has patient been on IV antibiotics over the past 48 hours?: Yes
[2024-01-06 08:44] LABS: CRP - C-REACTIVE PROTEIN 14.6 mg/dL (<0.5)
--- NOTE | 2024-01-06 21:09 | CT Report ---
PROCEDURE: Head WO INDICATIONS: Hit head, on Lovenox TECHNIQUE: Noncontrast 4.5 mm thick angled axial sections acquired from the foramen magnum to the vertex. For r adiation dose reduction, the following was used: automated exposure control, adjustment of mA and/or kV according to patient size. COMPARISON: CT head 12/27/2023. FINDINGS: Image quality: Excellent. CSF spaces: Basal cisterns are patent. No extra-axial fluid collections. Ventricles are symmetric in size and shape. Brain: No midline shift. No intracranial masses or hemorrhage. Hypodensities in the subcortical and periventricular white matter are most commonly seen in setting of chronic microvascular ischemic anthony nges. Age-related cerebral and cerebellar volume loss is seen. Intracranial vascular calcifications a re noted in the internal carotid arteries. Skull and face: Skin carmina are seen at the left frontal scalp. Calvarium and visualized facial bon es are intact, without suspicious lesions. Sinuses: Visualized sinuses and mastoids are clear. IMPRESSION: No acute intracranial pathology. Reviewed by: Javed Lloyd MD on 01/06/2024 9:07 PM PDT Approved by: Javed Lloyd MD on 01/06/2024 9:07 PM PDT Station ID: [id number]
[2024-01-06] MEDS: LORazepam 1 MG TABLET PO PRN (21:50)
[2024-01-07] MEDS: HALOPERIDOL 5 MG/ML VIAL IM PRN (01:22)
[2024-01-07 07:30] LABS: CRP - C-REACTIVE PROTEIN 7.9 mg/dL (<0.5)
[2024-01-07] MEDS: REMDESIVIR 100 MG in SODIUM CHLORIDE 0.9% 100ML 100 ML IV SCH (09:10)
[2024-01-07 09:34] VITALS: BP 152/73; O2SAT 95
--- NOTE | 2024-01-07 12:40 | Discharge Plan ---
"Discharge Plan for SNF / [facility] - Discharge Plan And Transition Orders Problem Reviewed?: Yes Disposition: 01 Home, Self Care Condition: Stable Allergies and Adverse Reactions: Allergies Allergy/AdvReac Type Severity Reaction Status Date / Time No Known Drug Allergies Allergy Verified 01/03/24 18:35 Health Concerns: 88-year-old gentleman who lives at [facility] in [place] due to severe dementia. It was reported that he had a productive cough, tested positive for COVID at the facility on the day of admission. Room air sats were checked and he was in the 80s and, as such, he was brought to the emergency room. History was not able to be obtained from the patient because of his dementia. He was oriented to person but not time, place, or events. Had a frequent bronchitic cough. Rhonchorous lung sounds throughout all lungs. Unlabored respiration. Following commands. On room air he was 82%. In order to saturate to 94% he required 4 L. At 1 point a coughing spasm resulted in a 15 L/min oxy mask. CT of the chest was done to make sure he did not have a PE and there is no pulmonary embolus but the pneumonia noted.He was felt to have mild increase of CK due to his fall 10 days previously. On admission his CPK was 1500. But the time of discharge it was 891. The patient responded to steroids, remdesivir. He was able to come off oxygen on January 04. January 06 was his last treatment for remdesivir and the patient can now return to his [facility]. He will require 5 more days of steroids. Plan of Treatment: He has completed his remdesivir and now needs to do 5 more days of dexamethasone 6 mg p.o. Last dose will be January 10. He is using albuterol approximately every 4 hours for cough and congestion. He was placed on empiric antibiotic therapy with ceftriaxone. He has dependent consolidation in the inferomedial right lower lobe, atelectasis in the left lung. Please make sure he is coughing, and taking deep breaths. He can take amoxicillin 500 mg p.o. 3 times daily for the next 2 days. Please make sure this patient drinks at least a liter of water a day. Care Goals: At this time it is simply to clear his cough and pneumonia. Assessment: Patient has severe dementia. While he is oriented to place, he has no insight. Not able to follow commands easily, and unable to process information. - SNF / [facility] Transition Orders Admit to (Facility): [facility] Under the care of (Name): Stephanie Petty MD Discharge Diagnosis: 1. Acute respiratory failure with hypoxia secondary to #2 and #3 2. COVID pneumonia 3. Mild secondary bacterial pneumonia 4. Chronic atrial fibrillation, rate controlled 5. Elevated CK due to patient fall 6. Dementia with behavioral disturbance Medicare Certification Statement: Notify PCP of admission and forward orders to primary provider for signature. Other Notification Orders: Call PCP immediately if patient develops dyspnea, chest pain/tightness or edema. House Bowel Program: Yes Additional Bowel Program Orders: If no BM after 2 days, nurse may give M.O.M. 30ml PO PRN and/or ducolax Supp 1 [place] and/or AKI 250mg P.O., and/or senna 1-2 tabs PO. On day 3 nurse may give repeat above order until residents constipation is resolved. Annual Influenza Vaccine (between Jun 28 and January 25): Yes Medication Orders: PLEASE REFER TO THE DISCHARGE MEDICATION LIST. Insulin Orders?: No - Medications New Prescriptions: Amoxicillin 500 mg PO BID #6 cap dexAMETHasone [Decadron] 6 mg PO 0800 #8 tablet - Diet Type: Geriatric Texture: Regular Liquids: Thin May have monthly special meal: Yes - Therapies | Activity Activity: Activity as Tolerated Weight Bearing: Full Weight Assistance Devices: Walker"
--- NOTE | 2024-01-07 13:12 | DISCHARGE SUMMARY ---
Discharge Summary Discharge Date: 01/07/24 Discharging Provider: Ilene Schilling MD Primary Care Provider: Stephanie Petty MD Condition at Discharge: Stable Discharge Disposition: 01 Home, Self Care - DIAGNOSES Admission Diagnoses: 1. Acute respiratory failure with hypoxia secondary to #2 and #3 2. COVID pneumonia 3. Mild secondary bacterial pneumonia 4. Chronic atrial fibrillation, rate controlled 5. Elevated CK due to patient fall 6. Dementia with behavioral disturbance - HPI History of Present Illness: 88-year-old gentleman who lives at [facility] in [place] due to severe dementia. It was reported that he had a productive cough, tested positive for COVID at the facility on the day of admission. Room air sats were checked and he was in the 80s and, as such, he was brought to the emergency room. History was not able to be obtained from the patient because of his dementia. He was oriented to person but not time, place, or events. Had a frequent bronchitic cough. Rhonchorous lung sounds throughout all lungs. Unlabored respiration. Following commands. On room air he was 82%. In order to saturate to 94% he required 4 L. At 1 point a coughing spasm resulted in a 15 L/min oxy mask. CT of the chest was done to make sure he did not have a PE and there is no pulmonary embolus but the pneumonia noted.He was felt to have mild increase of CK due to his fall 10 days previously. On admission his CPK was 1500. But the time of discharge it was 891. - HOSPITAL COURSE Hospital Course: The patient responded to steroids, remdesivir. He was able to come off oxygen on January 04. January 06 was his last treatment for remdesivir and the patient can now return to his longterm. He will require 5 more days of steroids. Plan of Treatment: He has completed his remdesivir and now needs to do 5 more days of dexamethasone 6 mg p.o. Last dose will be January 10. He is using albuterol approximately every 4 hours for cough and congestion. He was placed on empiric antibiotic therapy with ceftriaxone. He has dependent consolidation in the inferomedial right lower lobe, atelectasis in the left lung. I am asking [facility] to make sure he is coughing, and taking deep breaths. He can take amoxicillin 500 mg p.o. 3 times daily for the next 2 days. I am also asking [facility] to make surethis patient drinks at least a liter of water a day. Care Goals: At this time it is simply to clear his cough and pneumonia. Assessment: Patient has severe dementia. While he is oriented to place, he has no insight. Not able to follow commands easily, and unable to process information. Discharge temperature 36.7, heart rate 77, blood pressure 152/73, respirations 18, 95% room air. He is a cranky elderly gentleman. Wants to know why he is here and wants to "go home". Does not realize he is in the hospital. Coarse upper airway sounds, occasional bronchitic cough. But no respiratory distress. He sounds congested. Regular rate and rhythm. Abdomen is benign. Extremities without edema. Greater than 30 minutes was spent providing discharge This document was made in part using voice recognition software. While efforts are made to proofread this document, sound alike and grammatical errors may occur. - ALLERGIES Allergies/Adverse Reactions: Allergies Allergy/AdvReac Type Severity Reaction Status Date / Time No Known Drug Allergies Allergy Verified 01/03/24 18:35 - MEDICATIONS Home Medications: Ambulatory Orders Medication Instructions Recorded Confirmed QUEtiapine [SEROquel] 25 mg PO QPM #30 tablet 11/27/23 01/03/24 Acetaminophen [Tylenol] 650 mg PO Q6H PRN 01/03/24 01/03/24 guaiFENesin [Mucus ER] 600 mg PO BID PRN 01/03/24 01/04/24 Mag Hydrox/Aluminum Hyd/Simeth 30 ml PO Q4H PRN 01/04/24 01/04/24 [Alum-Mag Hydroxide-Simeth Cup] Magnesium Hydroxide [Milk of 30 ml PO DAILY PRN 01/04/24 01/04/24 Magnesia] Acetaminophen [Tylenol] 650 mg PO Q6HR PRN tab 01/07/24 Amoxicillin 500 mg PO BID #6 cap 01/07/24 Metoprolol Succinate [Toprol Xl] 25 mg PO DAILY tab 01/07/24 Zinc Oxide 20% Oint [Zinc Oxide] 1 applic TOP PRN PRN each 01/07/24 dexAMETHasone [Decadron] 6 mg PO 0800 #8 tablet 01/07/24 - LABS Result Diagrams: 01/04/24 08:40 01/05/24 06:37 - SEPSIS Current Stage of Sepsis: Ruled out
== END 2024-01-07 15:45 | disposition home or self-care (01) | DRG 177 ==
LOC: EDUNIT# → ED 18:21 → ICU 20:12 → MS2 01-05 10:32
PROVIDERS: ADMIT Internal Medicine; ATTEND Specialist
PROC: XW033E5 Introduction of Remdesivir Anti-infective into Peripheral Vein, Percutaneous Approach, New Technology Group 5 (ICD-10-PCS; principal; 2024-01-04)
PROC: 3E0333Z Introduction of Anti-inflammatory into Peripheral Vein, Percutaneous Approach (ICD-10-PCS; 2024-01-04)
DX: U07.1 COVID-19 (principal); J12.82 Pneumonia due to coronavirus disease 2019; J96.01 Acute respiratory failure with hypoxia; F03.90 Unspecified dementia, unspecified severity, without behavioral disturbance, psychotic disturbance, mood disturbance, and anxiety; Z20.828 Contact with and (suspected) exposure to other viral communicable diseases; J15.9 Unspecified bacterial pneumonia; I48.20 Chronic atrial fibrillation, unspecified; F03.918 Unspecified dementia, unspecified severity, with other behavioral disturbance; R74.8 Abnormal levels of other serum enzymes; R79.89 Other specified abnormal findings of blood chemistry; Z51.5 Encounter for palliative care; Z66 Do not resuscitate; Z86.79 Personal history of other diseases of the circulatory system; Z91.81 History of falling
CPT/HCPCS: 36415; 70450; 71045; 71275; 80053; 81003; 82330; 82550; 82803; 83605; 83615; 83721; 83735; 84100; 84132; 84484; 85025; 85379; 86140; 87040; 87150; 87633; 93005; 94640; 97162; 97166; A9270; J1650; J2060; J8499; Q9967; 81001; 87086; 99285; 99291

== ENCOUNTER 2024-01-07 15:40 | Outpatient (CLI) | payer MEDICARE | END 2024-01-07 23:59 | disposition home or self-care (01) | LOC: EMS 15:40 | PROVIDERS: ATTEND Specialist | DX: F03.90 Unspecified dementia, unspecified severity, without behavioral disturbance, psychotic disturbance, mood disturbance, and anxiety (principal); U07.1 COVID-19; R41.0 Disorientation, unspecified | CPT/HCPCS: A0425; A0428 ==

== ENCOUNTER 2024-01-21 16:19 | Outpatient (CLI) | payer MEDICARE | END 2024-01-21 23:59 | disposition critical access hospital (66) | LOC: EMS 16:19 | DX: M79.605 Pain in left leg (principal); M79.89 Other specified soft tissue disorders | CPT/HCPCS: A0425; A0429 ==

== ENCOUNTER 2024-01-21 16:41 | Emergency (ER) | payer MEDICARE ==
--- NOTE | 2024-01-21 18:50 | ED Physician Documentation ---
PD HPI LOWER EXT INJURY - Stated complaint Stated Complaint: LEG PX - Chief complaint Chief Complaint: Ext Problem - Additional information Additional information: 88-year-old male with advanced dementia alert and oriented x 0-1 presents [facility] from [facility] for concerns of staff of left lower extremity swelling and pain. I called the RN who sent him to the emergency department and she said that she was concerned about worsening left leg pain and swelling that patient has been complaining of worsening pain throughout the day and she is concerned about a possible DVT. For myself patient is obviously unable to contribute to any medical history he denies any pain he does appear to have a left pressure injury to the left heel. PD PAST MEDICAL HISTORY - Past Medical History Cardiovascular: Atrial flutter, Other Respiratory: Other Neuro: Dementia Endocrine/Autoimmune: None GI: None : None Musculoskeletal: Osteoarthritis, Chronic back pain, Other Derm: Herpes zoster - Past Surgical History Past Surgical History: Yes General: Colonoscopy Ortho: Knee replacement HEENT: Cataracts, Other - Present Medications Home Medications: Ambulatory Orders Medication Instructions Recorded Confirmed QUEtiapine [SEROquel] 25 mg PO QPM #30 tablet 11/27/23 01/03/24 guaiFENesin [Mucus ER] 600 mg PO BID PRN 01/03/24 01/04/24 Magnesium Hydroxide [Milk of 30 ml PO DAILY PRN 01/04/24 01/04/24 Magnesia] Acetaminophen [Tylenol] 650 mg PO Q6HR PRN tab 01/07/24 Amoxicillin 500 mg PO BID #6 cap 01/07/24 Metoprolol Succinate [Toprol Xl] 25 mg PO DAILY tab 01/07/24 Zinc Oxide 20% Oint [Zinc Oxide] 1 applic TOP PRN PRN each 01/07/24 - Allergies Allergies/Adverse Reactions: Allergies Allergy/AdvReac Type Severity Reaction Status Date / Time No Known Drug Allergies Allergy Verified 01/21/24 17:41 - Social History Does the pt smoke?: No Smoking Status: Never smoker Does the pt drink ETOH?: No Does the pt have substance abuse?: No - Immunizations Immunizations are current?: Yes - POLST Patient has POLST: No PD ED PE NORMAL - Vitals Vital signs reviewed: Yes - General General: No acute distress, Well developed/nourished, Other (Alert and oriented x 0) - HEENT HEENT: Atraumatic - Derm Derm: Normal color, Warm and dry, No rash, Other (no LLE erythema) - Extremities Extremities: No calf tenderness / cord (Mild left lower extremity edema, there is a pressure injury to the left heel with Mepilex dressing, patient able to flex and extend left knee without any difficulty he does have tenderness to the posterior left knee), Other Results - Vitals Vitals: Vital Signs - 24 hr 01/21/24 01/21/24 01/21/24 16:47 18:51 20:00 Temperature 36.6 C Heart Rate 89 81 82 Respiratory 17 16 16 Rate Blood Pressure 162/64 H 139/61 H 105/75 O2 Saturation 100 98 98 Oxygen O2 Source Room air - Rads (name of study) Left lower extremity venous duplex Relevant Findings:: Final report received, EMP independent interpretation of test, Other (No DVT. Possible subcutaneous hematoma near the popliteal fossa lump versus Webber's cyst up to 8.6 cm) PD Medical Decision Making - ED course ED course: 88-year-old male presents emergency department for left lower extremity pain and swelling differentials include but not limited to cellulitis, DVT, Webber's cyst, fracture. Venous duplex was complete for further evaluation of possible DVT and there is no DVT visualized on ultrasound. Patient did have a very large hematoma to the subcutaneous popliteal region versus Webber's cyst measuring up to 8.6 cm. He also has a known unstageable pressure injury to the left heel. A referral was given to the patient mostly to the staff or patient resides for patient to follow-up with orthopedic surgery if he is still complaining of this for possible drainage of this Webber's cyst versus hematoma as well as a reevaluation. He does not need to be started on any sort of anticoagulant therapy at this time as I have a low suspicion of a DVT. Departure - Departure Disposition: 01 Home, Self Care Clinical Impression: Pressure ulcer, heel, left, unstageable Hematoma of left lower extremity Qualifiers: Encounter type: initial encounter Qualified Code(s): S80.12XA - Contusion of left lower leg, initial encounter Condition: Stable Instructions: ED Hematoma Follow-Up: [facility] [Provider Group] Comments: Thank you for trusting us with your care, we have evaluated you for your left lower extremity pain and swelling. We have completed a venous duplex and we are not seeing any obvious deep venous thrombosis at this point in time. We did see that you have a either large hematoma behind your left knee versus a Webber's cyst. We recommend that you follow-up with the orthopedic surgeon outpatient for further evaluation of this. Keep your leg elevated above your heart when at rest. You will apply 20 minutes of ice and 20 minutes of heat at a time to help with any pain or discomfort as well as alternating between Tylenol and ibuprofen. Please come back to the emergency department for having any shortness of breath chest pain, or worsening left lower extremity pain and swelling. Forms: PCP List Discharge Date/Time: 01/21/24 20:30
[2024-01-21 19:13] VITALS: O2SAT 98
--- NOTE | 2024-01-21 19:15 | Ultrasound Report ---
PROCEDURE: Duplex Ext Veins Left INDICATIONS: LLE swelling pain TECHNIQUE: Real-time imaging, as well as color and pulse Doppler interrogation, were performed of the lower extr emity deep veins from the inguinal ligament to the popliteal fossa. Attempted visualization of the ca lf veins was performed. COMPARISON: Duplex extremity veins bilaterally 11/27/2023 FINDINGS: The deep veins are normally compressible, and free of intraluminal thrombus where visualiz ed in the common femoral, femoral and proximal popliteal veins. Color and pulse Doppler demonstrate normal phasic intraluminal flow. There is normal augmentation response to distal compression maneuve r. The distal popliteal vein and calf veins are not well visualized. In the popliteal fossa there is a heterogeneous fluid collection measuring approximately 8.6 x 2.3 cm IMPRESSION: Limited exam due to patient factors. No deep venous thrombosis visualized in the common femoral, femoral and proximal popliteal vein. Distal popliteal vein and calf veins are not well visua lized. Possible subcutaneous hematoma in the popliteal fossa versus Webber's cyst measuring up to 8.6 cm. Reviewed by: Yuli Huffman MD, PhD on 01/21/2024 7:14 PM PDT Approved by: Yuli Huffman MD, PhD on 01/21/2024 7:14 PM PDT Station ID: [id number]
[2024-01-21 20:16] VITALS: BP 105/75
== END 2024-01-21 20:30 | disposition home or self-care (01) ==
LOC: EDUNIT# → ED 16:41
DX: S80.12XA Contusion of left lower leg, initial encounter (principal); X58.XXXA Exposure to other specified factors, initial encounter; L89.620 Pressure ulcer of left heel, unstageable; I48.92 Unspecified atrial flutter; M19.90 Unspecified osteoarthritis, unspecified site; F03.90 Unspecified dementia, unspecified severity, without behavioral disturbance, psychotic disturbance, mood disturbance, and anxiety
CPT/HCPCS: 99284

== ENCOUNTER 2024-01-21 20:39 | Outpatient (CLI) | payer MEDICARE | END 2024-01-21 23:59 | disposition home or self-care (01) | LOC: EMS 20:39 | PROVIDERS: ATTEND Emergency Medicine | DX: R41.0 Disorientation, unspecified (principal); S80.02XA Contusion of left knee, initial encounter; X58.XXXA Exposure to other specified factors, initial encounter; F03.90 Unspecified dementia, unspecified severity, without behavioral disturbance, psychotic disturbance, mood disturbance, and anxiety; Z74.01 Bed confinement status | CPT/HCPCS: A0425; A0428 ==

== ENCOUNTER 2024-01-29 08:00 | Outpatient (CLI) | payer MEDICARE | END 2024-01-29 23:59 | disposition home or self-care (01) | LOC: PC 08:00 | PROVIDERS: ATTEND Nurse Practitioner Gerontology | DX: Z51.5 Encounter for palliative care (principal); F03.918 Unspecified dementia, unspecified severity, with other behavioral disturbance; G62.9 Polyneuropathy, unspecified; R53.1 Weakness; Z86.16 Personal history of COVID-19; R60.0 Localized edema; L97.511 Non-pressure chronic ulcer of other part of right foot limited to breakdown of skin; Z91.81 History of falling; Z99.3 Dependence on wheelchair | CPT/HCPCS: 99345 ==

== ENCOUNTER 2024-02-18 08:00 | Outpatient (CLI) | payer MEDICARE | END 2024-02-18 08:01 | disposition home or self-care (01) | LOC: PC 08:00 | PROVIDERS: ATTEND Nurse Practitioner Gerontology | DX: Z51.5 Encounter for palliative care (principal); R53.1 Weakness; F03.90 Unspecified dementia, unspecified severity, without behavioral disturbance, psychotic disturbance, mood disturbance, and anxiety; Z99.3 Dependence on wheelchair; Z66 Do not resuscitate; R41.3 Other amnesia; L98.9 Disorder of the skin and subcutaneous tissue, unspecified; R60.0 Localized edema; H91.93 Unspecified hearing loss, bilateral; L97.511 Non-pressure chronic ulcer of other part of right foot limited to breakdown of skin; G62.9 Polyneuropathy, unspecified; Z86.16 Personal history of COVID-19 | CPT/HCPCS: 99350 ==

== ENCOUNTER 2024-03-17 10:30 | Outpatient (CLI) | payer MEDICARE | END 2024-03-17 23:59 | disposition home or self-care (01) | LOC: PC 10:30 | PROVIDERS: ATTEND Nurse Practitioner Gerontology | DX: Z51.5 Encounter for palliative care (principal); R53.81 Other malaise; R60.0 Localized edema; F03.90 Unspecified dementia, unspecified severity, without behavioral disturbance, psychotic disturbance, mood disturbance, and anxiety | CPT/HCPCS: 99310 ==

== ENCOUNTER 2024-03-30 11:00 | Outpatient (CLI) | payer MEDICARE | END 2024-03-30 23:59 | disposition home or self-care (01) | LOC: PC 11:00 | PROVIDERS: ATTEND Nurse Practitioner Gerontology | DX: Z51.5 Encounter for palliative care (principal); F03.B11 Unspecified dementia, moderate, with agitation; I48.0 Paroxysmal atrial fibrillation; H61.22 Impacted cerumen, left ear; G62.9 Polyneuropathy, unspecified; J30.2 Other seasonal allergic rhinitis | CPT/HCPCS: 99348 ==

== ENCOUNTER 2024-06-03 08:00 | Outpatient (CLI) | payer MEDICARE | END 2024-06-03 23:59 | disposition home or self-care (01) | LOC: PC 08:00 | PROVIDERS: ATTEND Nurse Practitioner Gerontology | DX: Z51.5 Encounter for palliative care (principal); G30.9 Alzheimer's disease, unspecified; F02.C11 Dementia in other diseases classified elsewhere, severe, with agitation; F02.C4 Dementia in other diseases classified elsewhere, severe, with anxiety; F32.A Depression, unspecified; G47.00 Insomnia, unspecified; Z79.899 Other long term (current) drug therapy; R03.0 Elevated blood-pressure reading, without diagnosis of hypertension; I48.91 Unspecified atrial fibrillation; Z71.89 Other specified counseling; Z99.3 Dependence on wheelchair; Z86.16 Personal history of COVID-19; Z91.85 Personal history of military service | CPT/HCPCS: 99349 ==

== ENCOUNTER 2024-08-24 22:51 | Inpatient (IN) ==
--- NOTE | 2024-08-25 00:43 | ED Physician Documentation ---
History of Present Illness Stated complaint Stated Complaint: GLF Chief complaint Chief Complaint: Trauma Ch/Bk Additonal information Additional information: BIBA. Due to heavy volume of patients in the emergency department, I was not in the room when EMS gave report. My HPI is obtained from ED RN who did receive EMS report. The patient is unable to reliably contribute to HPI/ROS due to confusion (dementia).Reportedly, the patient sustained a fall tonight. He is a resident of home [facility]. It is unclear if the fall was witnessed. Patient does not take any blood thinners. Patient c/o right hip and knee pain. He does not recall falling. He is oriented to self only (disoriented to location and time/year). He tells me he was at a gathering with friends (initially he tells me they were out to dinner but then says the gathering was at a friend's house) and three glasses fell onto his RLE, causing the pain (this is inconsistent with information from EMS). Brittny Coma Scale Assess Eye opening: Spontaneous Verbal response: Confused Motor response: Obeys Commands Total score: 14 Meds/Allgy Home Medications Ambulatory Orders Medication Instructions Recorded Confirmed quetiapine 25 mg tablet 25 mg PO QPM #30 tabs 11/27/23 08/25/24 guaifenesin 600 mg tablet, 600 mg PO BID PRN Cough 01/03/24 08/25/24 extended release 12 hr (Mucus Relief ER) magnesium hydroxide 400 mg/5 mL 30 ml PO DAILY PRN Constipation 01/04/24 08/25/24 oral suspension acetaminophen 325 mg tablet 650 mg (2 x 325 mg) PO Q6HR PRN 01/07/24 08/25/24 Pain Or Fever > 38c (100.4f) amoxicillin 500 mg capsule 500 mg PO BID #6 caps 01/07/24 08/25/24 metoprolol succinate 25 mg 25 mg PO DAILY 01/07/24 08/25/24 tablet,extended release 24 hr zinc oxide 20 % topical ointment 1 applic topical PRN PRN Skin Care 01/07/24 08/25/24 memantine 5 mg tablet (Namenda) 5 mg PO BID 08/25/24 08/25/24 Allergies Allergies Allergy/AdvReac Type Severity Reaction Status Date / Time No Known Drug Allergies Allergy Verified 08/24/24 23:04 [facility] Social History Social History Smoking Status: Never smoker Living arrangement: At home Relationship: Level: Assisted Home Mobility Equipment: Cane and Walker Do you feel safe in your home environment?: Yes Suffered physical, verbal, emotional, or financial abuse?: No History of Abuse: No POLST Patient has POLST: No Exam Constitutional normal general appearance and alert Patient is yelling loudly and repeatedly "I'm dying" but immediately stops when I enter the room. NAD during H+P when lying still but obvious pain with movement involving RLE, particularly at the right hip HENMT normocephalic and head/scalp atraumatic Eyes PERRL Respiratory breath sounds equal bilaterally and clear to auscultation bilaterally Cardiovascular normal heart rate noted, regular rhythm noted and no murmur Gastrointestinal abdomen soft to palpation and nontender to palpation Extremities normal to inspection, tenderness noted (TTP right hip (compression)) and abnormal ROM noted (any movement of right hip results in obvious painful distress) right knee is without gross deformity and nontender to palpation Neurology speech normal and GCS calculation - Eye opening: Spontaneous Verbal response: Confused Motor response: Obeys Commands [place] Coma Scale total score: 14 Psychiatry orientation abnormal (disoriented to place) (says he is in "some kind of car place but I couldn't tell you which one") and (disoriented to time) ("1992 or "), cooperative (cooperative but forgetful (removes IV, pulse ox when not watched)) and memory abnormal (at times seems to forget he even has hip pain until he moves the leg) Results Vitals Vitals: Vital Signs - 24 hr 08/24/24 23:04 08/25/24 01:06 08/25/24 01:18 Temperature 36.9 C Temperature Source Oral Pulse Rate 63 74 Respiratory Rate 16 18 Blood Pressure 179/97 H 179/97 H O2 Saturation 94 97 O2 Source Room air Room air Pain Intensity 6 4 6 08/25/24 01:48 08/25/24 03:00 08/25/24 03:48 Temperature Temperature Source Pulse Rate 74 Respiratory Rate 16 Blood Pressure 176/84 H O2 Saturation 93 O2 Source Room air Pain Intensity 5 5 8 08/25/24 03:48 08/25/24 05:24 08/25/24 07:00 Temperature Temperature Source Pulse Rate 71 67 Respiratory Rate 18 15 Blood Pressure 116/69 122/62 O2 Saturation 93 96 O2 Source Room air Room air Pain Intensity 8 0 5 08/25/24 09:00 Temperature Temperature Source Pulse Rate 70 Respiratory Rate 16 Blood Pressure 114/64 O2 Saturation 92 O2 Source Room air Pain Intensity 5 Oxygen O2 Source Room air Labs Labs: Laboratory Tests 08/25/24 02:26 WBC 12.6 H RBC 4.32 L Hgb 13.2 L Hct 41.1 L MCV 95.1 H MCH 30.6 MCHC 32.1 RDW 14.3 Plt Count 158 MPV 11.3 Neut # (Auto) 10.8 H Lymph # (Auto) 1.0 L Hancock # (Auto) 0.8 Eos # (Auto) 0.0 Baso # (Auto) 0.0 Absolute Nucleated RBC 0.00 Nucleated RBC % 0.0 Sodium 140 Potassium 3.9 Chloride 108 Carbon Dioxide 25 Anion Gap 7.0 BUN 19 Creatinine 0.8 Estimated GFR (MDRD) 92 Glucose 103 Calcium 9.2 Total Bilirubin 0.8 AST 16 ALT 8 L Alkaline Phosphatase 63 Total Protein 6.1 L Albumin 4.0 Globulin 2.1 Albumin/Globulin Ratio 1.9 Lipase < 10 L Rads (name of study) right femur xrays: Relevant Findings:: Prelim report reviewed, EMP independent interpretation of test and See rad report PD Medical Decision Making ED course Complexity details: reviewed results, re-evaluated patient, considered differential and d/w patient ED course: Right femur x-rays reveal a mildly comminuted right subcapital femoral neck fracture. He is given 4mg IV morphine but subsequently removed his IV. He appeared to be more comfortable with the morphine but eventually was again calling out and appeared uncomfortable and thus given 1mg IM dilaudid with good effect (although had episodic hyponpnea leading to hypoxia, rapid improvement in hypoxia when woken and instructed to take deep breaths). I attempted to reach POJordon Pang at , but this went straight to . I left a message with [facility] ED phone number asking for her to call as soon as she receives the message. I placed this call for purposes of ascertaining level of treatment that would be consistent with the patient's express wishes. He does have a POLST form that indicates DNR and comfort measures only. The patient himself is too confused to allow for reliable consent from patient (he thinks he is in "some kind of car place" and year is "1992 or so"). Care of patient turned over to oncoming ED physician (Dr. Yates). He is held in ED overnight due to 1) awaiting d/w POA regarding plan for treatment of the hip fracture and (presuming POA agrees with surgical approach to treatment of right hip fracture) 2) bed availability (only one bed at [facility] on my overnight shift and this was an ICU bed). Discharge Plan Discharge Patient Disposition: 66 [facility] DC/Xfer Condition: Good Clinical Impression: Closed hip fracture Fracture of hip, right, closed Qualifiers: Encounter type: initial encounter Qualified Code(s): S72.001A - Fracture of unspecified part of neck of right femur, initial encounter for closed fracture Prescriptions: No Action quetiapine 25 MG tablet 25 mg PO QPM Qty: 30 0RF guaifenesin [Mucus Relief ER] 600 MG tablet extended release 12hr 600 mg PO BID PRN (Reason: Cough) Rx Instructions: X 15 DAYS magnesium hydroxide 2,400 MG/30 ML suspension 30 ml PO DAILY PRN (Reason: Constipation) Rx Instructions: May administer if no BM in 3 days or if resident reports constipation and requests need for laxative acetaminophen 325 MG tablet 650 mg PO Q6HR PRN (Reason: Pain Or Fever > 38c (100.4f)) 0RF zinc oxide 30 APPLIC/30 GM ointment 1 applic topical PRN PRN (Reason: Skin Care) 0RF metoprolol succinate 25 MG tablet extended release 24 hr 25 mg PO DAILY 0RF amoxicillin 500 MG capsule 500 mg PO BID Qty: 6 0RF memantine [Namenda] 5 mg tablet 5 mg PO BID Print Language: Setswana
--- NOTE | 2024-08-25 01:07 | XRAY Report ---
PROCEDURE: XR Femur 2+V RT INDICATIONS: Trauma TECHNIQUE: 2 views of the femur were acquired. COMPARISON: None. FINDINGS: Bones: There is a displaced, mildly comminuted subcapital right femoral neck fracture. Mild impactio n and proximal displacement of the distal fracture fragment. Postsurgical changes of the right acetab ulum. Chronic appearing calcification noted over the superolateral right acetabular rim. There are po stsurgical changes of right knee hemiarthroplasty. Degenerative changes of the right knee. Degenerati ve changes of the hip. No suspicious bony lesions. Soft tissues: No suspicious soft tissue calcifications or masses. IMPRESSION: Acute, mildly displaced subcapital right femoral neck fracture. Reviewed by: Harpreet Bernard MD on 08/25/2024 1:06 AM PDT Approved by: Harpreet Bernard MD on 08/25/2024 1:06 AM PDT Station ID: [id number]
[2024-08-25] MEDS: MORPHINE 2 MG/ML CARPUJECT IM STA (01:18)
[2024-08-25 02:39] LABS: BASOPHILS % (AUTO) 0.2 %; EOSINOPHILS % (AUTO) 0.3 %; HCT - HEMATOCRIT 41.1 % (42.0-52.0); HGB - HEMOGLOBIN 13.2 g/dL (14.0-18.0); MEAN CORPUSCULAR HEMOGLOBIN 30.6 pg (27.0-31.0); MEAN CORPUSCULAR HGB CONC 32.1 g/dL (32.0-36.0); MEAN CORPUSCULAR VOLUME 95.1 fL (80.0-94.0); MEAN PLATELET VOLUME 11.3 fL (7.4-11.4); MONOCYTES # (AUTO) 0.8 10^3/uL (0.0-1.0); MONOCYTES % (AUTO) 5.9 %; NEUTROPHILS # (AUTO) 10.8 10^3/uL (1.5-6.6); NEUTROPHILS % (AUTO) 85.2 %; PLT - PLATELET COUNT 158 10^3/uL (130-450); RED BLOOD COUNT 4.32 10^6/uL (4.70-6.10); RED CELL DISTRIBUTION WIDTH 14.3 % (12.0-15.0); WHITE BLOOD COUNT 12.6 x10^3/uL (4.8-10.8)
[2024-08-25 02:54] LABS: ALBUMIN/GLOBULIN RATIO 1.9 (1.0-2.2); ALKALINE PHOSPHATASE 63 IU/L (42-121); ALT ALANINE AMINOTRANSFERASE 8 IU/L (10-60); AST ASPARTATE AMINOTRANSFERASE 16 IU/L (10-42); BILIRUBIN,TOTAL 0.8 mg/dL (0.2-1.0); BUN - BLOOD UREA NITROGEN 19 mg/dL (6-20); CALCIUM 9.2 mg/dL (8.5-10.3); CARBON DIOXIDE - CO2 25 mmol/L (21-32); CHLORIDE 108 mmol/L (101-111); CREATININE 0.8 mg/dL (0.6-1.3); GFR - MDRD 92 (>89); GLUCOSE 103 mg/dL (74-104); POTASSIUM 3.9 mmol/L (3.5-4.5); SODIUM 140 mmol/L (135-145); TOTAL PROTEIN 6.1 g/dL (6.4-8.9)
[2024-08-25 02:59] LABS: LIPASE < 10 U/L (11-82)
[2024-08-25] MEDS: HYDROmorphone 1 MG/ML CARPUJECT IM STA (03:48)
[2024-08-25] MEDS: KETOROLAC 30 MG/ML VIAL IM STA (03:48)
--- NOTE | 2024-08-25 07:20 | ED Physician Documentation ---
ED Addendum Addendum Addendum: Sign out at 0700. This is an 88yo M who presented with fall and had a hip fracture (femoral neck) on XR. He is from a long term and is baseline confused. History limited. He is stable. No known head trauma. No AC. Received morphine, later dilaudid. Daughter is POA, voicemail left. TONYA says DNR, comfort measures only. PLAN: complete admit after talking with daughter, if she would consent to surgery. Note patient has prior hardware at hip. Staff working to reach daughter. I spoke with Emelyn at roughly 0810, reviewing case; she consents to surgery if that is recommended. No other new information. I have requested Orthopedic consult. I reassessed patient and he is stable, comfortable, closed, neurovascularly intact. Orthopedic consult: I spoke with Dr. Cabrera at 0831, reviewing case. She will discuss and call us back. I spoke with Dr. Cabrera at 0844; she anticipates surgery tomorrow, if we can admit patient here. Hospital currently full, but discussing with hospitalists. I spoke with hospitalist at 0844; they kindly accept but pending bed availability. Bed available. Patient being admitted in stable condition. Dr. Cabrera also requested XR AP pelvis for inpatient follow up, which I have ordered. Discharge Plan Discharge Patient Disposition: 66 [facility] DC/Xfer Condition: Good Clinical Impression: Closed hip fracture Fracture of hip, right, closed Qualifiers: Encounter type: initial encounter Qualified Code(s): S72.001A - Fracture of unspecified part of neck of right femur, initial encounter for closed fracture Prescriptions: No Action quetiapine 25 MG tablet 25 mg PO QPM Qty: 30 0RF guaifenesin [Mucus Relief ER] 600 MG tablet extended release 12hr 600 mg PO BID PRN (Reason: Cough) Rx Instructions: X 15 DAYS magnesium hydroxide 2,400 MG/30 ML suspension 30 ml PO DAILY PRN (Reason: Constipation) Rx Instructions: May administer if no BM in 3 days or if resident reports constipation and requests need for laxative acetaminophen 325 MG tablet 650 mg PO Q6HR PRN (Reason: Pain Or Fever > 38c (100.4f)) 0RF zinc oxide 30 APPLIC/30 GM ointment 1 applic topical PRN PRN (Reason: Skin Care) 0RF metoprolol succinate 25 MG tablet extended release 24 hr 25 mg PO DAILY 0RF amoxicillin 500 MG capsule 500 mg PO BID Qty: 6 0RF memantine [Namenda] 5 mg tablet 5 mg PO BID Print Language: Polish
--- NOTE | 2024-08-25 11:37 | HISTORY & PHYSICAL EXAMINATION ---
Chief Complaint Chief Complaint Chief Complaint: Leg pain History of Present Illness Admitted From Admitted From:: ED History Obtained From Records Reviewed: yes History obtained from: ED provider Exam Limitations: Patient severely demented. Unable to participate in ROS History of Present Illness HPI Comment/Other: 88-year-old care home resident who experienced a fall at his care home. Patient is severely demented, and is not interactive with interview. In the ER, x-ray was performed which showed a acute, mildly displaced subcapital right femoral neck fracture. Orthopedic surgery was contacted by ER provider, and the decision was made to admit to hospitalist service and plan for OR in the morning Meds/Allgy Home Medications Ambulatory Orders Medication Instructions Recorded Confirmed quetiapine 25 mg tablet 25 mg PO QPM #30 tabs 11/27/23 08/25/24 guaifenesin 600 mg tablet, 600 mg PO BID PRN Cough 01/03/24 08/25/24 extended release 12 hr (Mucus Relief ER) magnesium hydroxide 400 mg/5 mL 30 ml PO DAILY PRN Constipation 01/04/24 08/25/24 oral suspension acetaminophen 325 mg tablet 650 mg (2 x 325 mg) PO Q6HR PRN 01/07/24 08/25/24 Pain Or Fever > 38c (100.4f) amoxicillin 500 mg capsule 500 mg PO BID #6 caps 01/07/24 08/25/24 metoprolol succinate 25 mg 25 mg PO DAILY 01/07/24 08/25/24 tablet,extended release 24 hr zinc oxide 20 % topical ointment 1 applic topical PRN PRN Skin Care 01/07/24 08/25/24 memantine 5 mg tablet (Namenda) 5 mg PO BID 08/25/24 08/25/24 Allergies Allergies Allergy/AdvReac Type Severity Reaction Status Date / Time No Known Drug Allergies Allergy Verified 08/24/24 23:04 [facility] Social History Social History Smoking Status: Never smoker Living arrangement: At home Relationship: Level: Assisted Home Mobility Equipment: Cane and Walker Do you feel safe in your home environment?: Yes Suffered physical, verbal, emotional, or financial abuse?: No History of Abuse: No POLST Patient has POLST: No Review of Systems Status of ROS: unobtainable due to medical condition (Severely demented) Exam Exam Elderly male, talking but not meaningfully interactive with interview Constitutional normal general appearance and no apparent distress HENOH normocephalic and head/scalp atraumatic Eyes PERRL and EOMs intact bilaterally Neck/C-Spine visual inspection normal and trachea midline Lymph no lymphadenopathy noted Chest inspection of chest normal and palpation of chest normal Respiratory breath sounds equal bilaterally and normal respiratory effort Cardiovascular normal heart rate noted and regular rhythm noted Gastrointestinal abdomen normal to inspection and abdomen soft to palpation Genitourinary bladder normal to palpation Extremities deformity noted Right leg shorter than left, externally rotated. No pedal edema Neurology cam maker II-XII intact Neuro grossly intact. Severely demented, states that he has been waiting for help but cannot articulate what he needs. Oriented to self Skin skin color normal and no rash Conclusion/Plan Problem List (1) Fracture of hip, right, closed: Plan: Right femoral neck fracture on x-ray secondary to fall while at care home Orthopedics consulted by ER provider, I also discussed plan of treatment with them [id number] Plan for OR in a.m., Scheduled for 730 N.p.o. after midnight I am unsure if he is on anticoagulant. Awaiting pharmacy review for this Holding anticoagulation for now I have started him on scheduled Tylenol and as needed Dilaudid 0.5 mg IV EKG, coag tests Qualifiers: Encounter type: initial encounter Qualified Code(s): S72.001A - Fracture of unspecified part of neck of right femur, initial encounter for closed fracture (2) Dementia: Plan: Patient is unable to participate in interview given severe dementia I have requested that the [facility] reach out to his facility to obtain records Continue home regimen as appropriate when pharmacy has reviewed this Qualifiers: Dementia behavioral or psychological symptom: without behavioral, psychotic, or mood disturbance or anxiety Dementia severity: unspecified severity Dementia type: unspecified type Qualified Code(s): F03.90 - Unspecified dementia, unspecified severity, without behavioral disturbance, psychotic disturbance, mood disturbance, and anxiety Plan I have no records from the facility as far as his CODE STATUS. Patient is not interactive with interview and lacks capacity at this time I have asked the [facility] to reach out to his facility to search for any record of his CODE STATUS/POLST form Maintaining full code for now Lab Results Lab results reviewed: Yes 08/25/24 02:26 08/25/24 02:26 Diagnostic Imaging Results Diagnostic Imaging Results: positive Final report reviewed Diagnostic Imaging Results Comments: Pelvic x-ray with right femoral neck fracture EKG Results EKG Findings: EKG ordered Core Measures Anticipated LOS I expect patient to be DC'd or transferred within 96 hours.: Yes Issues Hospital Issues and Management Plan: Pain management, OR in a.m., n.p.o. after midnight DVT/VTE - Prophylaxis VTE/DVT Device ordered at admit?: Yes VTE/DVT Prophylaxis med ordered at admit?: No
[2024-08-25] MEDS: LORazepam 2 MG/ML VIAL IVP STA (11:56)
[2024-08-25] MEDS: ACETAMINOPHEN 500 MG TABLET PO SCH (11:56)
--- NOTE | 2024-08-25 12:19 | XRAY Report ---
PROCEDURE: XR Pelvis 1-2V INDICATIONS: AP pelvis requested by ortho TECHNIQUE: 1 view of the pelvis acquired. COMPARISON: Right femur plain films from one day ago reviewed.. FINDINGS: Bones: Subcapital femoral neck fracture, angulated, chronicity uncertain. 2 orthopedic screws at th e anterior column of the right hemipelvis. No suspicious bony lesions. Soft tissues: Visualized bowel gas pattern is normal. No suspicious soft tissue calcifications. IMPRESSION: Presumed acute subcapital femoral neck fracture but there has been prior trauma to this area with ort hopedic fixation at the anterior column of the right acetabulum as discussed. The proximal femoral fr acture was considered acute on the right femur plain film imaging one day ago. Reviewed by: Arnaldo Padilla MD on 08/25/2024 12:17 PM PDT Approved by: Arnaldo Padilla MD on 08/25/2024 12:17 PM PDT Station ID: [id number]
[2024-08-25] MEDS ORDERED: ONDANSETRON 4 MG/2 ML VIAL IVP PRN (12:21)
[2024-08-25] MEDS ORDERED: SODIUM CHLORIDE FLUSH 0.9% 10 ML SYRINGE IVP PRN (12:21)
--- NOTE | 2024-08-25 13:38 | PHARMACY PROGRESS NOTE ---
Best Possible Medication History Admit Date and Time: 08/25/24 [id number] Processed by: Pharmacy Medications reviewed in ED?: No Medication History completed: Yes Patient Interview: Pt unable to participate Secondary Source(s): Facility MAR as ONLY source [facility] Statement: As the person ultimately responsible for medication therapy, providers are able to order a medication from an existing home medication list in [facility] via the "Reconcile Routine" prior to Confirmation of that medication by postal support employee. Such practice is discouraged except when the physician, in their clinical judgment, deems that a medical need exists for a medication without regard to previous use.
--- NOTE | 2024-08-25 15:27 | HISTORY & PHYSICAL EXAMINATION ---
History of Present Illness Admitted From Admitted From:: ER History of Present Illness HPI Comment/Other: 88 yo male with dementia, noreen fell at his assisted on 08/24/2024 and sustained a displaced femoral neck fracture to his right hip. He has a history of unicompartmental knee arthroplasty and likely acetabular fracture on the right side as well. He was brought to the ER where the hip fracture was identified. He was admitted to internal medicine and orthopedics was consulted. Patient is unable to answer questions coherently secondary to his severe dementia. According to his daughter Emelyn, his next of kin, prior to the fall he was walking with a walker and was utilizing the walker to ambulate when he fell. Meds/Allgy Home Medications Ambulatory Orders Medication Instructions Recorded Confirmed magnesium hydroxide 400 mg/5 mL 30 ml PO DAILY PRN Constipation 01/04/24 08/25/24 oral suspension acetaminophen 325 mg tablet 650 mg PO Q6H PRN fever > 100or 08/25/24 08/25/24 pain acetaminophen 325 mg tablet 650 mg PO TID 08/25/24 08/25/24 aluminum-mag hydroxide-simethicone 30 ml PO Q4H PRN UPSET STOMACH OR 08/25/24 08/25/24 200 mg-200 mg-20 mg/5 mL oral susp HEARTBURN memantine 5 mg tablet (Namenda) 5 mg PO BID 08/25/24 08/25/24 quetiapine 25 mg tablet 12.5 mg PO QPM 08/25/24 08/25/24 Allergies Allergies Allergy/AdvReac Type Severity Reaction Status Date / Time No Known Drug Allergies Allergy Verified 08/24/24 23:04 [facility] Social History Social History Smoking Status: Never smoker Living arrangement: At home Relationship: Level: Assisted Home Mobility Equipment: Cane and Walker History of Abuse: No POLST Patient has POLST: No Exam Exam PE: WD/WN Male RLE: Skin intact. Shortened and externally rotated right lower extremity. Fires ta/gs/ehl/fhl SILT distally DP 2+ and brisk cap refill. Several views of his right hip and femur and AP pelvis demonstrate a displaced right femoral neck fracture. Conclusion/Plan Problem List (1) Fracture of hip, right, closed: Plan: Right femoral neck fracture - displaced - I discussed the plan of care with his daughter, Emelyn, and she would like to proceed with surgery to help with his pain relief and get him back to assisted ambulation. She was consented with Nursing staff witnessing the verbal consent. - Will plan for hemiarthroplasty on 08/26/2024. - NPO after midnight - Will need anticoagulation and pain control after surgery defer to primary team. Qualifiers: Encounter type: initial encounter Qualified Code(s): S72.001A - Fracture of unspecified part of neck of right femur, initial encounter for closed fracture (2) Dementia: Plan: Patient is unable to participate in interview given severe dementia I have requested that the [facility] reach out to his facility to obtain records Continue home regimen as appropriate when pharmacy has reviewed this Qualifiers: Dementia behavioral or psychological symptom: without behavioral, psychotic, or mood disturbance or anxiety Dementia severity: unspecified severity Dementia type: unspecified type Qualified Code(s): F03.90 - Unspecified dementia, unspecified severity, without behavioral disturbance, psychotic disturbance, mood disturbance, and anxiety Plan I have no records from the facility as far as his CODE STATUS. Patient is not interactive with interview and lacks capacity at this time I have asked the [facility] to reach out to his facility to search for any record of his CODE STATUS/POLST form Maintaining full code for now Lab Results Lab results reviewed: Yes 08/25/24 02:26 08/25/24 02:26
--- NOTE | 2024-08-25 16:01 | ANESTHESIA PROCEDURE NOTE ---
Pre-Anesthesia VS, & Labs Diagnosis Surgical Diagnosis:: R femoral neck fracture Procedure Procedure: R hip hemiarthroplasty Vitals Vital Signs: Temp Pulse Resp BP Pulse Ox 37.0 C 65 16 139/68 H 94 08/25/24 12:22 08/25/24 12:22 08/25/24 12:22 08/25/24 12:22 08/25/24 12:22 Height (in): 5 ft 8 in Weight (kg): 81.5 kg Body Mass Index: 27.3 BMI Classification: Overweight NPO NPO: >8 hours Last Fluid Intake: made NPO pMN Last Food Intake: NPO pMN Lab Results Current Lab Results: Laboratory Tests 08/25/24 02:26: WBC 12.6 H, RBC 4.32 L, Hgb 13.2 L, Hct 41.1 L, MCV 95.1 H, MCH 30.6, MCHC 32.1, RDW 14.3, Plt Count 158, MPV 11.3, Neut # (Auto) 10.8 H, Lymph # (Auto) 1.0 L, Treasure # (Auto) 0.8, Eos # (Auto) 0.0, Baso # (Auto) 0.0, Absolute Nucleated RBC 0.00, Nucleated RBC % 0.0, Sodium 140, Potassium 3.9, Chloride 108, Carbon Dioxide 25, Anion Gap 7.0, BUN 19, Creatinine 0.8, Estimated GFR (MDRD) 92, Glucose 103, Calcium 9.2, Total Bilirubin 0.8, AST 16, ALT 8 L, Alkaline Phosphatase 63, Total Protein 6.1 L, Albumin 4.0, Globulin 2.1, Albumin/Globulin Ratio 1.9, Lipase < 10 L Lab results reviewed: Yes 08/25/24 02:26 08/25/24 02:26 Meds/Allgy Home Medications Ambulatory Orders Medication Instructions Recorded Confirmed magnesium hydroxide 400 mg/5 mL 30 ml PO DAILY PRN Constipation 01/04/24 08/25/24 oral suspension acetaminophen 325 mg tablet 650 mg PO Q6H PRN fever > 100or 08/25/24 08/25/24 pain acetaminophen 325 mg tablet 650 mg PO TID 08/25/24 08/25/24 aluminum-mag hydroxide-simethicone 30 ml PO Q4H PRN UPSET STOMACH OR 08/25/24 08/25/24 200 mg-200 mg-20 mg/5 mL oral susp HEARTBURN memantine 5 mg tablet (Namenda) 5 mg PO BID 08/25/24 08/25/24 quetiapine 25 mg tablet 12.5 mg PO QPM 08/25/24 08/25/24 Allergies Allergies Allergy/AdvReac Type Severity Reaction Status Date / Time No Known Drug Allergies Allergy Verified 08/24/24 23:04 [facility] Surgical History Surgical History (Updated 08/25/24 @ 16:04 by Julio Musa CRNA) H/O pelvic surgery Social History Social History Smoking Status: Never smoker Living arrangement: At home Relationship: Level: Assisted Home Mobility Equipment: Cane and Walker History of Abuse: No POLST Patient has POLST: No Anesthesia Exam (Expanded) Exam General: Alert (alert to self, not place, time, or situation), Cooperative and Mild distress (2/10 pain with movement) Dental: Poor dentition (none loose, several missing) Mouth Openin Fingerbreadth Neck Mobility: Normal Mallampati classification: II Thyromental Distance: 4-6 cm Respiratory: Lungs clear, Normal breath sounds and No respiratory distress Cardiovascular: Regular rate (pt states HR has been irregular in past. Aflutter noted in hx, EKG is NSR 08/25/24) Neurological: Normal speech Mental/Cognitive Status: Confused and Oriented to name Cognitive Status: Dementia Exam Respiratory breath sounds equal bilaterally, normal respiratory effort and clear to auscultation bilaterally Cardiovascular normal heart rate noted and regular rhythm noted Extremities 2/10 pain @R hip with movement, no pain at rest Skin skin color normal Plan Problem List (1) Fracture of hip, right, closed: Plan: Right femoral neck fracture - displaced - I discussed the plan of care with his daughter, Emelyn, and she would like to proceed with surgery to help with his pain relief and get him back to assisted ambulation. She was consented with Nursing staff witnessing the verbal consent. - Will plan for hemiarthroplasty on 08/26/2024. - NPO after midnight - Will need anticoagulation and pain control after surgery defer to primary team. Qualifiers: Encounter type: initial encounter Qualified Code(s): S72.001A - Fracture of unspecified part of neck of right femur, initial encounter for closed fracture (2) Dementia: Plan: Patient is unable to participate in interview given severe dementia I have requested that the [facility] reach out to his facility to obtain records Continue home regimen as appropriate when pharmacy has reviewed this Qualifiers: Dementia behavioral or psychological symptom: without behavioral, psychotic, or mood disturbance or anxiety Dementia severity: unspecified severity Dementia type: unspecified type Qualified Code(s): F03.90 - Unspecified dementia, unspecified severity, without behavioral disturbance, psychotic disturbance, mood disturbance, and anxiety Plan I have no records from the facility as far as his CODE STATUS. Patient is not interactive with interview and lacks capacity at this time I have asked the [facility] to reach out to his facility to search for any record of his CODE STATUS/POLST form Maintaining full code for now Plan Anesthesia Type: General and Fascia Iliaca Block (possible) Consent for Procedure(s) Verified and Reviewed: Yes Code Status: Attempt Resuscitation ASA Classification ASA classification: 3-Severe systemic disease Is this case an emergency?: No (Consent completed with daughterEmelyn, @1930 08/25/24)
[2024-08-25] MEDS: CYCLOBENZAPRINE 10 MG TABLET PO PRN (21:16)
[2024-08-25] MEDS: SODIUM CHLORIDE FLUSH 0.9% 10 ML SYRINGE IVP SCH (21:16)
[2024-08-25] MEDS: QUEtiapine 25 MG TABLET PO SCH (21:16)
[2024-08-25] MEDS: MEMANTINE 5 MG TABLET PO SCH (21:16)
[2024-08-26 06:01] LABS: BASOPHILS % (AUTO) 0.3 %; EOSINOPHILS # (AUTO) 0.4 10^3/uL (0.0-0.7); EOSINOPHILS % (AUTO) 4.5 %; HCT - HEMATOCRIT 38.8 % (42.0-52.0); HGB - HEMOGLOBIN 12.7 g/dL (14.0-18.0); LYMPHOCYTES # (AUTO) 1.2 10^3/uL (1.5-3.5); LYMPHOCYTES % (AUTO) 12.9 %; MEAN CORPUSCULAR HEMOGLOBIN 30.9 pg (27.0-31.0); MEAN CORPUSCULAR HGB CONC 32.7 g/dL (32.0-36.0); MEAN CORPUSCULAR VOLUME 94.4 fL (80.0-94.0); MONOCYTES # (AUTO) 0.7 10^3/uL (0.0-1.0); MONOCYTES % (AUTO) 7.1 %; NEUTROPHILS # (AUTO) 7.1 10^3/uL (1.5-6.6); NEUTROPHILS % (AUTO) 74.9 %; PLT - PLATELET COUNT 147 10^3/uL (130-450); RED BLOOD COUNT 4.11 10^6/uL (4.70-6.10); RED CELL DISTRIBUTION WIDTH 14.4 % (12.0-15.0); WHITE BLOOD COUNT 9.5 x10^3/uL (4.8-10.8)
[2024-08-26 06:08] LABS: PARTIAL THROMBOPLASTIN TIME 28.2 secs (24.9-33.3)
[2024-08-26 06:12] LABS: INR 1.2 (0.8-1.2); PT - PROTHROMBIN TIME 12.9 secs (9.9-12.6)
[2024-08-26 06:19] LABS: CALCIUM 8.9 mg/dL (8.5-10.3); CREATININE 0.7 mg/dL (0.6-1.3); POTASSIUM 3.8 mmol/L (3.5-4.5)
[2024-08-26] MEDS ORDERED: VANCOMYCIN 1 GM VIAL ONE (07:07)
[2024-08-26] MEDS ORDERED: BUPIVACAINE 0.25% PF 30 ML VIAL ONE (07:07)
[2024-08-26] MEDS ORDERED: PROPOFOL 200 MG/20 ML VIAL IVP ONE (07:21)
[2024-08-26] MEDS ORDERED: fentaNYL 100 MCG/2 ML VIAL ONE (07:22)
[2024-08-26] MEDS ORDERED: ROCURONIUM 50 MG/5 ML VIAL ONE ×2 (07:22→09:31)
[2024-08-26] MEDS ORDERED: ceFAZolin 1 GM VIAL ONE (08:09)
[2024-08-26] MEDS ORDERED: TRANEXAMIC ACID 1,000 MG/10 ML VIAL ONE ×2 (08:09→09:57)
[2024-08-26] MEDS ORDERED: ePHEDrine 50 MG/ML VIAL IVP ONE (09:31)
[2024-08-26] MEDS ORDERED: PHENYLEPHRINE HCL 0.5 MG/5 ML AMPULE ONE (09:31)
[2024-08-26] MEDS ORDERED: ACETAMINOPHEN 1,000 MG/100 ML 1,000 MG/100 ML BAG IV ONE (10:05)
[2024-08-26] MEDS ORDERED: SUGAMMADEX 200 MG/2 ML VIAL IVP ONE (10:40)
[2024-08-26] MEDS ORDERED: fentaNYL 100 MCG/2 ML VIAL IVP PRN (10:42)
[2024-08-26] MEDS ORDERED: NALOXONE 0.4 MG/ML VIAL IVP PRN (10:42)
[2024-08-26] MEDS ORDERED: ONDANSETRON 4 MG/2 ML VIAL IVP PRN (10:42)
[2024-08-26] MEDS ORDERED: HYDROmorphone 0.5 MG/0.5 ML SYRINGE IVP PRN (10:42)
[2024-08-26] MEDS ORDERED: ATROPINE ABBOJECT 1 MG/10 ML SYRINGE IVP PRN (10:42)
[2024-08-26] MEDS ORDERED: MORPHINE 2 MG/ML CARPUJECT IVP PRN (10:42)
--- NOTE | 2024-08-26 11:12 | ANESTHESIA POST OP EVALUATION ---
Anesthesia Post Eval Post Anesthesia Eval Vitals: Last Vital Signs Temp 36.8 C 08/26/24 11:00 Pulse 72 08/26/24 11:00 Resp 18 08/26/24 11:00 BP 128/79 08/26/24 11:00 Pulse Ox 96 08/26/24 11:00 CV Function Including HR & BP: Stable Pain Control: Satisfactory Nausea & Vomiting: Negative Mental Status: Baseline Respiratory Status: Airway Patent Hydration Status: Satisfactory Anesthesia Complications: None
[2024-08-26] MEDS ORDERED: HYDROmorphone 0.5 MG/0.5 ML SYRINGE ONE (11:15)
[2024-08-26] MEDS: HYDROmorphone 0.5 MG/0.5 ML SYRINGE IVP PRN (11:17)
[2024-08-26] MEDS: LACTATED RINGERS 1,000 ML IV SCH (11:40)
--- NOTE | 2024-08-26 12:18 | OPERATIVE REPORT ---
Operative Report General Admit Date: 08/25/24 Procedure Data: Operation Date: 08/26/24 07:30 Proposed Procedures p Hip Hemiprosthesis(Right) - Jerilyn M Rick, DO Actual Procedures p Hip Hemiarthroplasty(Right) - Jerilyn M Rick, DO Pre-Op Diagnosis: HIP FX Anesthesia Type General Case Staff Anesthesia Provider: Bia Rowe Assisting Provider: Titi Jean Assisting Provider: Kyrie Abel Rep: Geovani Jacques S&N Rep. Case Times Into Recovery: 08/26/24 10:50 Procedure Start: 08/26/24 08:38 Procedure End: 08/26/24 10:45 Time out: 08/26/24 08:35 Implants PALACOS R PRO 80G BONE CEMENT INVIS DIST CENT SZ 10MM SYN EMI FEM COMP SZ 11 Tourniquet Tourniquet #: Tourniquet Site Padding: Pressure: Applied by: Time up #1: Time Down #1: Time Up #2: Time Down #2: Pre-Op Diagnosis: right hip displaced femoral neck fracture Post Op Diagnosis: jose Procedure Note Estimated Blood Loss (ml): 100 Output, Urine Amount (ml): 150 Findings: right hip displaced femoral neck fracture Complications: none Other Other Information/Narrative: PROCEDURE IN DETAIL: Patient is brought to the operating room and given a preoperative antibiotic, and placed comfortably into the lateral decubitus position utilizing a peg boar d. The pegs were well padded. A surgical time out was performed. 1g TXA was given preoperatively. The right hip was sterilely prepped and draped. A time out was performed confirming the correct patient, correct location, and administration of antibiotics. An incision was made centered over the greater trochanter in line with the femur. Dissection was carefully carried through the subcutaneous tissue. Electrocautery was used for hemostasis. A split was then made in the iliotibial band in line with the skin incision. The Charnley retractor was placed. The superior aspect of the gluteus medius was released from the greater trocanter and Hohmann retractors were placed on either side of the femoral neck. A portion of capsule was removed and the hip was then dislocated.The femoral head was removed. The head was measured. The femur was then prepared beginning with a box osteotome. A lateralizer was used and then sequential hand reamers until an 11 broach was found to be stable. This was broached sequentially up to a size 11 which had excellent fit and fill, and a calcar planer was used to smooth the top of the femur. We then trialed the components and were quite satisfied with regard to leg length, stability, and range of motion. An additional 1 g of TXA was administered. The femoral canal was prepared and irrigated, the distal cement restrictor was measured and placed, the canal was irrigated then dried with a vag pack, 3rd generation cement technique was used, the anesthesiologist was informed prior to pressurization. The implant was placed and held in position until the cement hardened. The trial head was placed again. The hip was located it had excellent range of motion, great stability. The wound was irrigated and final implants were implanted. The wound was irrigated again. The hip was located it had excellent range of motion, great stability, and the wound was then irrigated and closed with #1 barbed suture in the IT band and glut medius.The subcutaneous tissue was irrigated with dilute iodine and NS. Subcutaneos tissue was closed with 2-0 Vicryl and the skin was closed with carmina. 30 ml of local anesthetic was used to infiltrate the incision site. The patient tolerated the procedure well. SPECIMENS: None COMPLICATIONS: None BLOOD PRODUCTS: None BLOOD LOSS: 100 IMPLANTS: 52 size femoral head and 11 stem POSTOPERATIVE PROTOCOL: The patient should weightbear to tolerance. Use a walker for ambulation. I would like them to follow up in two weeks or sooner if needed. Will plan to use aspirin for DVT prophylaxis. Follow up with me in 2 weeks for wound check, then again at 6 weeks with standing AP and cross table hip xray.
[2024-08-26] MEDS: ceFAZolin (2G) 2 GM in SODIUM CHLORIDE 0.9% MINIBAG 100 ML IV SCH (13:13)
[2024-08-26] MEDS: KETOROLAC 15 MG/ML VIAL IVP PRN (13:14)
--- NOTE | 2024-08-26 13:24 | XRAY Report ---
PROCEDURE: XR Hip w/Pelvis 1V RT INDICATIONS: POST BEATRIZ HIP RIGHT TECHNIQUE: AP pelvis with AP view of the right hip. COMPARISON: Pelvis radiograph 08/25/2024 FINDINGS: Bones: Interval postsurgical changes from right hip hemiarthroplasty with hardware components in exp ected positions. 2 metallic screws are again seen projecting over the acetabulum and superior pubic r amus. Degenerative changes are seen in the included spine. Soft tissues: Expected postsurgical changes in the soft tissue surrounding the hip. IMPRESSION: Status post right hip hemiarthroplasty with expected immediate postoperative appearance. Reviewed by: Javed Lloyd MD on 08/26/2024 1:23 PM PDT Approved by: Javed Lloyd MD on 08/26/2024 1:23 PM PDT Station ID: [id number]
--- NOTE | 2024-08-26 16:12 | PROVIDER PROGRESS NOTE ---
Current Medications Current Medications Current Medications: Current Medications Generic Name Dose Route Start Last Admin Trade Name Freq PRN Reason Stop Dose Admin Acetaminophen 1,000 mg 08/25/24 12:00 08/26/24 04:07 Acetaminophen 500 Mg Tablet PO 1,000 mg Q8H MANDA Administration Atropine Sulfate 0.5 mg 08/26/24 10:42 Atropine Abboject 1 Mg/10 Ml Syringe IVP 08/27/24 10:42 Q5M PRN Bradycardia Calcium Carbonate/Glycine 500 mg 08/26/24 21:00 Calcium Carbonate Chew 500 Mg Tablet PO BID MANDA Cholecalciferol 50 mcg 08/27/24 09:00 Cholecalciferol 25 Mcg Tablet PO DAILY MANDA Cyclobenzaprine HCl 10 mg 08/25/24 16:56 08/25/24 21:16 Cyclobenzaprine 10 Mg Tablet PO 10 mg TID PRN Administration Spasms Hydromorphone HCl 0.5 mg 08/25/24 12:21 08/26/24 11:17 Hydromorphone 0.5 Mg/0.5 Ml Syringe IVP 0.5 mg Q2H PRN Administration Pain 8 to 10 Lactated Ringer's 1,000 mls @ 100 mls/hr 08/26/24 11:00 08/26/24 11:40 Lr IV 08/26/24 20:59 100 mls/hr .Q10H MANDA Administration Cefazolin Sodium 2 gm/ Sodium 100 mls @ 200 mls/hr 08/26/24 12:00 Chloride IV 08/26/24 20:29 Q8H MANDA Ketorolac Tromethamine 15 mg 08/25/24 16:56 Ketorolac 15 Mg/Ml Vial IVP 08/30/24 16:55 Q6HR PRN Severe Pain (Level 7-10) Memantine 5 mg 08/25/24 21:00 08/25/24 21:16 Memantine 5 Mg Tablet PO 5 mg BID MANDA Administration Ondansetron HCl 4 mg 08/25/24 12:21 Ondansetron 4 Mg/2 Ml Vial IVP Q6HR PRN Nausea / Vomiting Quetiapine Fumarate 12.5 mg 08/25/24 21:00 08/25/24 21:16 Quetiapine 25 Mg Tablet PO 12.5 mg QPM MANDA Administration Sodium Chloride 10 ml 08/25/24 12:21 Sodium Chloride Flush 0.9% 10 Ml Syringe IVP PRN PRN NEEDED PER PROVIDER ORDERS Sodium Chloride 10 ml 08/25/24 17:00 08/26/24 10:17 Sodium Chloride Flush 0.9% 10 Ml Syringe IVP Not Given 0100,0900,1700 MANDA Objective Vital Signs/Intake & Output Vital Signs: Vital Signs x48h Temp Pulse Pulse Resp BP BP Pulse Ox 08/26/24 11:38 36.6 C 60 16 137/60 H 94 08/26/24 11:30 36.6 C 68 16 122/62 97 08/26/24 11:25 36.6 C 67 16 125/58 L 96 08/26/24 11:20 36.6 C 60 16 124/58 L 95 08/26/24 11:15 36.5 C 63 15 148/69 H 98 08/26/24 11:10 36.9 C 70 14 138/59 H 96 08/26/24 11:05 36.8 C 69 20 129/78 35 L 08/26/24 11:00 36.8 C 72 18 128/79 96 08/26/24 10:55 87 16 122/68 94 08/26/24 10:50 36.9 C 68 15 126/61 100 08/26/24 07:35 36.6 C 71 18 164/82 H 96 08/26/24 05:45 37.2 C 71 16 167/80 H 96 O2 Flow Rate 08/26/24 11:38 2 08/26/24 11:30 08/26/24 11:25 08/26/24 11:20 08/26/24 11:15 08/26/24 11:10 08/26/24 11:05 08/26/24 11:00 08/26/24 10:55 08/26/24 10:50 08/26/24 07:35 08/26/24 05:45 Intake & Output: Intake & Output 08/24/24 08/25/24 08/26/24 08/27/24 05:59 05:59 05:59 05:59 Intake Total 240 / 240 230 / 230 Output Total 418 / 418 650 / 650 Balance -178 / -178 -420 / -420 Weight (kg) 83.4 kg 81.5 kg Lab Results 08/26/24 05:49 08/26/24 05:49 Other Labs: Lab Results x24hrs 08/26/24 Range/Units 05:49 WBC 9.5 (4.8-10.8) x10^3/uL RBC 4.11 L (4.70-6.10) 10^6/uL Hgb 12.7 L (14.0-18.0) g/dL Hct 38.8 L (42.0-52.0) % MCV 94.4 H (80.0-94.0) fL MCH 30.9 (27.0-31.0) pg MCHC 32.7 (32.0-36.0) g/dL RDW 14.4 (12.0-15.0) % Plt Count 147 (130-450) 10^3/uL MPV 11.0 (7.4-11.4) fL Neut # (Auto) 7.1 H (1.5-6.6) 10^3/uL Lymph # (Auto) 1.2 L (1.5-3.5) 10^3/uL Williams # (Auto) 0.7 (0.0-1.0) 10^3/uL Eos # (Auto) 0.4 (0.0-0.7) 10^3/uL Baso # (Auto) 0.0 (0.0-0.1) 10^3/uL Absolute Nucleated RBC 0.00 x10^3/uL Nucleated RBC % 0.0 /100WBC PT 12.9 H (9.9-12.6) secs INR 1.2 (0.8-1.2) APTT 28.2 (24.9-33.3) secs Sodium 140 (135-145) mmol/L Potassium 3.8 (3.5-4.5) mmol/L Chloride 108 (101-111) mmol/L Carbon Dioxide 28 (21-32) mmol/L Anion Gap 4.0 L (6-13) BUN 13 (6-20) mg/dL Creatinine 0.7 (0.6-1.3) mg/dL Estimated GFR (MDRD) 107 (>89) Glucose 102 (74-104) mg/dL Calcium 8.9 (8.5-10.3) mg/dL Assessment/Plan Problem List (1) Fracture of hip, right, closed: Impression: Postop day 0 right hemiarthroplasty to treat right femoral neck fracture. EBL at time of procedure 150 mL. Discussed with orthopedic surgeon, Dr. Cabrera this afternoon. She recommends aspirin 81 mg twice daily for 6 weeks postop for DVT prophylaxis. Patient may weight-bear as tolerated. I asked specifically about posterior hip precautions and she said that they are not necessary. Patient will have physical therapy evaluation in the morning for consideration of SNF placement. We will remove Rodríguez catheter in the morning. Qualifiers: Encounter type: initial encounter Qualified Code(s): S72.001A - Fracture of unspecified part of neck of right femur, initial encounter for closed fracture (2) Dementia: Impression: He is post general anesthesia this afternoon and unable to participate in interview. We are continuing with his home medications. DNR POLST on the chart from January 2024. Signed by his daughter and surrogate decision-maker. I have spent 38 minutes in the care of this patient today. This includes time [id number], review and ordering of diagnostic imaging and laboratory studie, s and consultation with other providers.. Qualifiers: Dementia behavioral or psychological symptom: without behavioral, psychotic, or mood disturbance or anxiety Dementia severity: unspecified severity Dementia type: unspecified type Qualified Code(s): F03.90 - Unspecified dementia, unspecified severity, without behavioral disturbance, psychotic disturbance, mood disturbance, and anxiety
[2024-08-26] MEDS: CALCIUM CARBONATE CHEW 500 MG TABLET PO SCH (20:13)
[2024-08-26] MEDS: ASPIRIN CHEW 81 MG TABLET PO SCH (20:13)
[2024-08-27 04:42] VITALS: O2SAT 96
[2024-08-27 06:21] LABS: BASOPHILS % (AUTO) 0.4 %; EOSINOPHILS # (AUTO) 0.5 10^3/uL (0.0-0.7); EOSINOPHILS % (AUTO) 4.8 %; HCT - HEMATOCRIT 34.3 % (42.0-52.0); HGB - HEMOGLOBIN 11.2 g/dL (14.0-18.0); LYMPHOCYTES % (AUTO) 9.7 %; MEAN CORPUSCULAR HGB CONC 32.7 g/dL (32.0-36.0); MEAN PLATELET VOLUME 11.5 fL (7.4-11.4); MONOCYTES # (AUTO) 0.6 10^3/uL (0.0-1.0); MONOCYTES % (AUTO) 5.9 %; NEUTROPHILS # (AUTO) 8.1 10^3/uL (1.5-6.6); NEUTROPHILS % (AUTO) 78.9 %; PLT - PLATELET COUNT 133 10^3/uL (130-450); RED BLOOD COUNT 3.61 10^6/uL (4.70-6.10); RED CELL DISTRIBUTION WIDTH 14.4 % (12.0-15.0); WHITE BLOOD COUNT 10.3 x10^3/uL (4.8-10.8)
[2024-08-27 06:44] LABS: CALCIUM 8.3 mg/dL (8.5-10.3); CREATININE 0.7 mg/dL (0.6-1.3); POTASSIUM 3.8 mmol/L (3.5-4.5)
--- NOTE | 2024-08-27 07:49 | POST OP PROGRESS NOTE ---
Subjective General Admit Date: 08/25/24 Procedure Date: 08/26/24 Post Op Days: 1 Procedure Performed: right hip hemiarthroplasty Other Other Information/Narrative: POD #1 right hip hemiarthroplasty - THe patient denies pain. He was seen by PT yesterday. THe nurse reports that he seems to be comfortable. Ortho Surgical Progress Note Problem List Problem List: s/p right hip hemiarthoplasty - POD 1 - VTE prophylaxis and pain control per primary team - the patient is WBAT with walker. - upon discharge, he should f/u with me in 2 weeks for staple removal. - Okay for dressing to come off after one week and he may shower / bathe with the dressing on Discharge Instructions: * Always ambulate with front wheeled walker until instructed otherwise by your surgeon. Please refer to the booklet provided at [facility] for instructions for ambulation. You can weight-bear as tolerated on the affected extremity. * Avoid crossing your legs when sitting in low chairs to reduce chance of hip dislocation * Follow the pre-operatively agreed upon pain regimen described in the [facility] booklet. As a reminder, the discussed medications include using acetaminophen, ibuprofen, oxycodone and tramadol. * Ice area to decrease pain and swelling * Take Aspirin 81 mg twice daily for 6 weeks for blood clot prevention * Leave dressing in place until follow up in office. You can shower with the dressing in place if it is kept dry and neat * Please call the office if you experience fever, chills, chest pain, shortness of breath, nausea, vomiting, drainage or bleeding * You are scheduled for follow-up with the orthopedic clinic in 5 days * Appreciate input from hospitalist team for management of chronic medical conditions Exam Exam PE: WD/WN Male RLE: Dressing c/d/i. Leg lengths equal. Fires ta/gs/ehl/fhl SILT distally POst op radiographs: implant in good position.
--- NOTE | 2024-08-27 08:41 | PROVIDER PROGRESS NOTE ---
Subjective Prog Note Date Prog Note Date: 08/27/24 Prog Note Time: 08:40 Subjective Subjective: confused this AM. He thinks he is at home. he wants to know when he is having surgery and why we are not helping him. he does not like the spoon he has been given to eat his hot cereal. Current Medications Current Medications Current Medications: Current Medications Generic Name Dose Route Start Last Admin Trade Name Freq PRN Reason Stop Dose Admin Acetaminophen 1,000 mg 08/25/24 12:00 08/27/24 04:38 Acetaminophen 500 Mg Tablet PO 1,000 mg Q8H MANDA Administration Aspirin 81 mg 08/26/24 21:00 08/26/24 20:13 Aspirin Chew 81 Mg Tablet PO 81 mg BID MANDA Administration Atropine Sulfate 0.5 mg 08/26/24 10:42 Atropine Abboject 1 Mg/10 Ml Syringe IVP 08/27/24 10:42 Q5M PRN Bradycardia Calcium Carbonate/Glycine 500 mg 08/26/24 21:00 08/26/24 20:13 Calcium Carbonate Chew 500 Mg Tablet PO 500 mg BID MANDA Administration Cholecalciferol 50 mcg 08/27/24 09:00 Cholecalciferol 25 Mcg Tablet PO DAILY MANDA Cyclobenzaprine HCl 10 mg 08/25/24 16:56 08/27/24 02:15 Cyclobenzaprine 10 Mg Tablet PO 10 mg TID PRN Administration Spasms Docusate Sodium 250 - 500 mg 08/27/24 09:00 Docusate Sodium 250 Mg Capsule PO DAILY MANDA Hydromorphone HCl 0.5 mg 08/25/24 12:21 08/26/24 11:17 Hydromorphone 0.5 Mg/0.5 Ml Syringe IVP 0.5 mg Q2H PRN Administration Pain 8 to 10 Ketorolac Tromethamine 15 mg 08/25/24 16:56 08/26/24 13:14 Ketorolac 15 Mg/Ml Vial IVP 08/30/24 16:55 15 mg Q6HR PRN Administration Severe Pain (Level 7-10) Memantine 5 mg 08/25/24 21:00 08/26/24 20:13 Memantine 5 Mg Tablet PO 5 mg BID MANDA Administration Ondansetron HCl 4 mg 08/25/24 12:21 Ondansetron 4 Mg/2 Ml Vial IVP Q6HR PRN Nausea / Vomiting Polyethylene Glycol 17 gm 08/27/24 09:00 Polyethylene Glycol 3350 17 Gm Packet PO DAILY MANDA Quetiapine Fumarate 12.5 mg 08/25/24 21:00 08/26/24 20:11 Quetiapine 25 Mg Tablet PO 12.5 mg QPM MANDA Administration Sodium Chloride 10 ml 08/25/24 12:21 Sodium Chloride Flush 0.9% 10 Ml Syringe IVP PRN PRN NEEDED PER PROVIDER ORDERS Sodium Chloride 10 ml 08/25/24 17:00 08/26/24 20:13 Sodium Chloride Flush 0.9% 10 Ml Syringe IVP 10 ml 0100,0900,1700 MANDA Administration Objective Vital Signs/Intake & Output Vital Signs: Vital Signs x48h Temp Pulse Pulse Resp BP Pulse Ox 08/27/24 08:30 36.8 C 90 18 132/74 H 96 08/27/24 04:39 37.7 C 91 H 18 155/73 H 96 08/27/24 00:46 36.8 C 77 18 125/58 L 97 Intake & Output: Intake & Output 08/25/24 08/26/24 08/27/24 08/28/24 05:59 05:59 05:59 05:59 Intake Total 240 / 240 570 / 570 Output Total 418 / 418 1999 / 1999 Balance -178 / -178 -1430 / -1430 Weight (kg) 83.4 kg 81.5 kg Lab Results 08/27/24 05:48 08/27/24 05:48 Other Labs: Lab Results x24hrs 08/27/24 Range/Units 05:48 WBC 10.3 (4.8-10.8) x10^3/uL RBC 3.61 L (4.70-6.10) 10^6/uL Hgb 11.2 L (14.0-18.0) g/dL Hct 34.3 L (42.0-52.0) % MCV 95.0 H (80.0-94.0) fL MCH 31.0 (27.0-31.0) pg MCHC 32.7 (32.0-36.0) g/dL RDW 14.4 (12.0-15.0) % Plt Count 133 (130-450) 10^3/uL MPV 11.5 H (7.4-11.4) fL Neut # (Auto) 8.1 H (1.5-6.6) 10^3/uL Lymph # (Auto) 1.0 L (1.5-3.5) 10^3/uL Irwin # (Auto) 0.6 (0.0-1.0) 10^3/uL Eos # (Auto) 0.5 (0.0-0.7) 10^3/uL Baso # (Auto) 0.0 (0.0-0.1) 10^3/uL Absolute Nucleated RBC 0.00 x10^3/uL Nucleated RBC % 0.0 /100WBC Sodium 140 (135-145) mmol/L Potassium 3.8 (3.5-4.5) mmol/L Chloride 109 (101-111) mmol/L Carbon Dioxide 26 (21-32) mmol/L Anion Gap 5.0 L (6-13) BUN 11 (6-20) mg/dL Creatinine 0.7 (0.6-1.3) mg/dL Estimated GFR (MDRD) 107 (>89) Glucose 113 H (74-104) mg/dL Calcium 8.3 L (8.5-10.3) mg/dL Assessment/Plan Problem List (1) Fracture of hip, right, closed: Qualifiers: Encounter type: initial encounter Qualified Code(s): S72.001A - Fracture of unspecified part of neck of right femur, initial encounter for closed fracture (2) Dementia: Qualifiers: Dementia behavioral or psychological symptom: without behavioral, psychotic, or mood disturbance or anxiety Dementia severity: unspecified severity Dementia type: unspecified type Qualified Code(s): F03.90 - Unspecified dementia, unspecified severity, without behavioral disturbance, psychotic disturbance, mood disturbance, and anxiety
[2024-08-27] MEDS: DOCUSATE SODIUM 250 MG CAPSULE PO SCH (09:02)
[2024-08-27] MEDS: CHOLECALCIFEROL 25 MCG TABLET PO SCH (09:02)
[2024-08-27] MEDS: polyethylene glycoL 3350 17 GM PACKET PO SCH (09:04)
--- NOTE | 2024-08-27 09:19 | PT Plan of Care ---
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 He has a history of dementia and currently A&Ox1 (self) but was still agreeble to PT eval. During PT eval, skin check near bandage covering incision site looked clean and intact. Pt was able to follow simple commands to demo UE and LE ROM which were within normal limits, he did report mild pain with his R hip. He is able to stabilize his trunk for supine to long sit with SBAx1. Requires ModAx2 for EOB to help with trunk rotation and bringing both LE to EOB. He was able to sit Ind at EOB while brushing his teeth. Due to his lethargy post surgery and Hx of dementia, progress for mobility was stopped and he was returned to bed with ModAx2. He requested for pudding while sitting in bed but required tactile re-orientation because of dysmetria. Unable to assess if it was a visual deficiency or incoordination from dementia. Pt is able to follow commands and requires multiple cueing attempts to re-orient to tasks. Patient will benefit from skilled PT due to pain and limited mobility. When medically cleared PT recommends discharge to previous with PT. PATIENT/FAMILY GOALS Patient/Family Goals: Have a knee that doesn't hurt! GOALS Improve supine to sit to:: Contact Guard Improve gait ability to:: CGA Advance Assistive Device to:: Front Wheeled Walker Increase distance walked to (in feet):: 100 Reduce verbal cues to:: 1 Reduce physical cues to:: 0 Improve Lower Extremity ROM to:: WFL Improve Sitting Balance to:: Good PLAN Frequency: 1-2x/day Duration: Until goals are met DISCHARGE RECOMMENDATIONS Discharge Location: Previous Living Situation Support/Services Needed: With assist DC Equipment Recommended: Front wheeled walker Transport Needs at Discharge: Wheelchair van
--- NOTE | 2024-08-27 13:07 | Discharge Summary ---
"Discharge Summary Admit Date: 08/25/24 Discharge Date: 08/27/24 Discharging Provider: Gosia Ortiz Primary Care Provider: EFREN Romero Code Status: Do Not Attempt Resuscitation DIAGNOSES Admission Diagnoses: Right femoral neck fracture Dementia Discharge Diagnoses with Status of Each Condition: Right femoral neck fracture status post right hemiarthroplasty Dementia HPI History of Present Illness: 88-year-old assisted resident who experienced a fall at his assisted. Patient is severely demented, and is not interactive with interview. In the ER, x-ray was performed which showed a acute, mildly displaced subcapital right femoral neck fracture. Orthopedic surgery was contacted by ER provider, and the decision was made to admit to hospitalist service and plan for OR in the morning CONSULTS | PROCEDURES Consultations: Orthopedic surgery Procedures: Pelvis, right hip, right femur x-ray: Acute mildly displaced subcapital right femoral neck fracture right hip hemiarthroplasty HOSPITAL COURSE Hospital Course: Admitted from assisted after experiencing a fall resulting in a right femoral neck fracture. This is a patient with severe dementia, DNR status and comfort focused treatment. On hospital day 2 underwent right hip hemiarthroplasty to treat his right femoral neck fracture as a palliative procedure. He did well postoperatively and Tritt was transferred back to his facility on postoperative day 1. ALLERGIES Allergies Allergy/AdvReac Type Severity Reaction Status Date / Time No Known Drug Allergies Allergy Verified 08/24/24 23:04 MEDICATIONS Ambulatory Orders Medication Instructions Recorded Confirmed aluminum-mag hydroxide-simethicone 30 ml PO Q4H PRN UPSET STOMACH OR 08/25/24 08/25/24 200 mg-200 mg-20 mg/5 mL oral susp HEARTBURN memantine 5 mg tablet (Namenda) 5 mg PO BID 08/25/24 08/25/24 quetiapine 25 mg tablet 12.5 mg PO QPM 08/25/24 08/25/24 aspirin 81 mg chewable tablet 81 mg PO BID 42 days #84 tabs 08/27/24 calcium carbonate 500 mg (2.5 x 200 mg calcium (500 08/27/24 mg)) PO BID #60 tabs cholecalciferol (vitamin D3) 25 50 mcg (2 x 25 mcg (1,000 unit)) 08/27/24 mcg (1,000 unit) tablet PO DAILY #30 tabs acetaminophen 325 mg tablet 650 mg PO Q5H Pain 08/28/24 oxycodone 5 mg tablet 5 mg PO Q6H PRN pain #20 tabs 08/28/24 polyethylene glycol 3350 17 17 g PO QDAY PRN constipation #510 08/28/24 gram/dose oral powder (Miralax) grams sennosides 8.6 mg capsule (senna) 8.6 mg PO BID constipation #60 caps 08/28/24 PHYSICAL EXAM AT DISCHARGE General Appearance: positive No acute distress and Alert Eyes Bilateral: positive Normal inspection ENT: positive ENT inspection nml Neck: positive Nml inspection Respiratory: positive No respiratory distress and Breath sounds nml Cardiovascular: positive Regular rate & rhythm Peripheral Pulses: positive 2+ Abdomen: positive Non-tender and No distention Skin: positive Color nml Extremities: positive Other (Surgical dressing at the right hip intact with no evidence of strikethrough, appropriately tender with appropriate amount of edema.) Neurologic/Psychiatric: positive Disoriented to place and Disoriented to time LABS 08/27/24 05:48 08/27/24 05:48 FOLLOW UP Follow Up: Orthopedic surgery as instructed Palliative care is functioning as his primary care provider. TIME SPENT Time Spent in Discharge (Minutes): 35 Discharge Plan Discharge Patient Disposition: ASSISTED, Self Care Condition: Good Medically Cleared Date:: 08/27/24 Prescriptions: New aspirin 81 mg Tablet,Chewable 81 mg PO BID 42 Days Qty: 84 0RF calcium carbonate 200 mg calcium (500 mg) Tablet,Chewable 500 mg PO BID Qty: 60 3RF cholecalciferol (vitamin D3) 25 mcg (1,000 unit) Tablet 50 mcg PO DAILY Qty: 30 3RF Continued memantine [Namenda] 5 mg tablet 5 mg PO BID alum-mag hydroxide-simeth 200-200-20 mg/5 mL suspension 30 ml PO Q4H PRN (Reason: UPSET STOMACH OR HEARTBURN) Rx Instructions: administer between meals and at bedtime quetiapine 25 MG tablet 12.5 mg PO QPM Discontinued acetaminophen 325 MG tablet 650 mg PO TID No Action acetaminophen 325 mg tablet 650 mg PO Q5H Rx Instructions: Spread out evenly 6 AM, 11 AM, 4 PM, 9 PM. Do not wake to give please senna 8.6 mg capsule 8.6 mg PO BID Qty: 60 5RF Rx Instructions: Hold for loose stools polyethylene glycol 3350 [Miralax] 17 gram/dose powder 17 g PO QDAY PRN (Reason: constipation) Qty: 510 0RF Rx Instructions: Give every 72 hours if no BM oxycodone 5 mg tablet 5 mg PO Q6H PRN (Reason: pain) Qty: 20 0RF Rx Instructions: Do not fill already has Activity Restrictions: Wt Bearing as Tolerated Diet: Regular Health Concerns: You came into the hospital because you fell at your care facility and broke your hip. You required repair of your hip fracture with a procedure called a hemiarthroplasty. Now you have a new hip joint. You can walk on your hip normally although it may hurt. You will need to use a walker and you will need home health physical therapy to help you get better from your fall. You can take Tylenol for pain and I have also prescribed a narcotic pain medication called oxycodone as needed. You should take stool softeners as the lack of activity as well as the narcotics from the surgery can cause you to become constipated. You need to be on calcium and vitamin D to help your hip heal. You should see your primary care provider within the week for follow-up after your hospitalization. Care Plan Goals: You may walk on your hip. Use a walker for safety Oxycodone and Tylenol for pain control Avoid constipation by using a stool softener Take calcium and vitamin D to help your hip heal Print Language: Tamazight Patient Instructions: Surgery Anesthesia After Follow-up Care: Flory Olivia NP [Provider Admit Priv/Credential] - Aracely Rosario MD [Provider Admit Priv/Credential] -"
--- NOTE | 2024-08-27 13:36 | PT Plan of Care ---
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 He has a history of dementia during PT eval he was A&Ox1. He was slightly more alert than previous eval but still requires frequent orientation to place and time. At re-eval he was found in bed without his gown and required assistance donning it on before start of evaluation. His supine to sit at EOB is still Modx2. He completed a STS Modx2 with FWW after 1 trial. He reported pain in his R hip as "I just can't keep living like this" in regards to his pain but unable to report intensity. Pt amb 2 ft to bedside chair ModAx2 with FWW but has poor standing balance due to pain and needed help maneuvering his FWW to sit back down. Pt is able to follow commands and requires multiple cueing attempts to re-orient to tasks. Patient will benefit from skilled PT due to pain and limited mobility. When medically cleared PT recommends discharge to previous NF with PT. PATIENT/FAMILY GOALS Patient/Family Goals: Have a knee that doesn't hurt! GOALS Improve supine to sit to:: Contact Guard Improve sit to stand to:: Contact Guard Improve gait ability to:: CGA Advance Assistive Device to:: Front Wheeled Walker Increase distance walked to (in feet):: 100 Reduce verbal cues to:: 1 Reduce physical cues to:: 0 Improve Lower Extremity ROM to:: WFL Improve Sitting Balance to:: Good PLAN Frequency: 1-2x/day Duration: Until goals are met DISCHARGE RECOMMENDATIONS Discharge Location: Previous Living Situation Support/Services Needed: With assist DC Equipment Recommended: Front wheeled walker Transport Needs at Discharge: B.L.S Other: Pt unable to sit unsupported due to R hip pain and dementia that requires him to be continuously re-oriented.
== END 2024-08-27 14:56 | disposition home or self-care (01) | DRG 536 ==
LOC: ED 22:51 → MS2 22:51
PROVIDERS: ADMIT Nurse Practitioner Acute Care; ATTEND Nurse Practitioner Acute Care
PROC: HEMIHIP (2024-08-26 07:30)
DX: Z66 Do not resuscitate; F03.C0 Unspecified dementia, severe, without behavioral disturbance, psychotic disturbance, mood disturbance, and anxiety; W19.XXXA Unspecified fall, initial encounter; S72.011A Unspecified intracapsular fracture of right femur, initial encounter for closed fracture; I48.92 Unspecified atrial flutter; F03.94 Unspecified dementia, unspecified severity, with anxiety